=== PATIENT | female | born 1945 | race Caucasian/White ===

== ENCOUNTER → 2016-09-08 | Outpatient (CLI) | payer OTHER, MEDICARE ==
[~2016-09-08] MED LIST: ASPEC325 PO; CALC-452 PO; CMD3 PO; DLC5 PO; DLCS PR; DLD2 PO; DRGTP100 TD; DRGTP12 TD; DRGTP25 TD; ENAL10TA88 PO; ENOX100I SC; FRRG PO; FRS/40 PO; HYDR-5688 PO; LCTL45 PO; MOMLX PO; MONT1TAB3 PO; MRLP17 PO; NORT10CA4 PO; NRN300 PO; SENN8.6T7 PO; SUNI25CA PO; SYN50 PO; WARF5TAB7 PO
--- NOTE | 2016-09-08 16:20 | DIAGNOSTIC IMAGING REPORT ---
LEFT LOWER EXTREMITY VENOUS DOPPLER HISTORY: LEFT LEG PAIN AND SWELLING, R/O DVT COMPARISON STUDY: None. FINDINGS: Thrombus identified within the left greater saphenous vein and profunda femoris vein. There is also thrombus within superficial vessels of the left medial calf. There is subjacent edema within the left calf. The left common femoral, superficial femoral, popliteal, peroneal, anterior tibial, and posterior tibial veins are patent. IMPRESSION: 1. Deep vein thrombosis involving the left profunda femoris vein. 2. Multiple thrombosed superficial veins within the left calf as well as the left greater saphenous vein. Electronically signed by: Rajan Sewell M.D. 09/08/2016 4:18 PM Dictated Date/Time: 09/08/2016 4:17 PM
== END | disposition home or self-care (01) ==
LOC: C.ULTR 15:26
PROVIDERS: ATTEND Radiology Radiation Oncology
DX: M79.89 Other specified soft tissue disorders (principal); M79.604 Pain in right leg; I82.412 Acute embolism and thrombosis of left femoral vein; I82.812 Embolism and thrombosis of superficial veins of left lower extremity

== ENCOUNTER 2016-09-11 09:10 | Inpatient (IN) | payer OTHER, MEDICARE ==
[~2016-09-11] VITALS: Ht 162.6 cm; Wt 91.4 kg
[~2016-09-11 09:10] MED LIST changes: -ASPEC325 PO; -CMD3 PO; -DLC5 PO; -DLCS PR; -DLD2 PO; -DRGTP100 TD; -DRGTP12 TD; -DRGTP25 TD; -ENOX100I SC; -FRRG PO; -LCTL45 PO; -MOMLX PO; -MRLP17 PO; -NORT10CA4 PO; -NRN300 PO; -SENN8.6T7 PO; -SUNI25CA PO; -SYN50 PO; -WARF5TAB7 PO
[2016-09-11] MEDS ORDERED: HYDROmorphone INJ 0.5 MG/0.5 ML SYR IV STA ×2 (09:50→10:19)
[2016-09-11] MEDS ORDERED: ONDANSETRON INJ 2 MG/ML 2 ML VIAL IV STA (09:50)
[2016-09-11 10:01] LABS: HEMATOCRIT 25.3 % (37-47); MEAN CELL VOLUME 80.6 fL (80-100); MEAN CORPUSCULAR HEMOGLOBIN 24.8 pg (25-34); MEAN CORPUSCULAR HGB CONC 30.8 g/dl (32-36); MEAN PLATELET VOLUME 8.2 fL (7.4-10.4); PLATELET COUNT 450 K/uL (130-400); RED BLOOD COUNT 3.14 M/uL (4.2-5.4); WHITE BLOOD COUNT 14.07 K/uL (4.8-10.8)
[2016-09-11] MEDS ORDERED: DRGTP12 TD (10:14)
[2016-09-11] MEDS ORDERED: SUNI25CA PO (10:14)
[2016-09-11] MEDS ORDERED: WARF5TAB7 PO (10:14)
[2016-09-11] MEDS ORDERED: ENOX100I SC (10:14)
[2016-09-11 10:15] LABS: BUN/CREATININE RATIO 16.8 (10-20); CALCIUM 9.3 mg/dl (8.5-10.1); CREATININE 0.88 mg/dl (0.60-1.20); POTASSIUM 4.2 mmol/L (3.5-5.1)
[2016-09-11 10:26] LABS: BASO % 0.1 %; BASO ABS # 0.02 K/uL (0-0.2); COMPLETE YES; EOS % 0.6 %; IG% 1.6 %; LYMPH % 5.5 %; LYMPH ABS # 0.78 K/uL (1.2-3.4); MONO % 7.2 %
[2016-09-11] MEDS ORDERED: OPTIRAY 320 IV PRN (10:30)
[2016-09-11 10:36] LABS: INR 1.1 (0.9-1.1); PARTIAL THROMBOPLASTIN RATIO 1.5; PROTHROMBIN TIME (PATIENT) 11.9 SECONDS (9.0-12.0)
--- NOTE | 2016-09-11 11:08 | DIAGNOSTIC IMAGING REPORT ---
CT LUMBAR SPINE WITH CT DOSE: CLINICAL HISTORY: Back pain with left leg radiculopathy. Patient on Lovenox. Possible hemorrhage. TECHNIQUE: The patient was scanned in a dynamic helical fashion during intravenous administration of 66 cc of Optiray 320. COMPARISON STUDY: PET/CT scan dated 02/18/2011 FINDINGS: The visualized portions of the lung bases reveal interstitial thickening. The left kidney appears absent. There is a partially visualized destructive mass centered on the left iliac wing. This may further described on a CT scan of the pelvis. No acute fractures are visualized. There is a circumferential disc bulge and moderate spinal stenosis at the L2-3 level. There is a circumferential disc bulge and moderate spinal stenosis at the L3-4 level. There is a circumferential disc bulge and mild to moderate spinal stenosis at the L4-5 level. IMPRESSION: 1. No acute fractures or subluxations identified 2. Multilevel spondylitic changes with moderate spinal stenosis at the L2-3 and L3-4 levels. There is mild to moderate spinal stenosis at the L4-5 level. 3. Partially visualized large destructive mass centered on the left iliac bone. This will be further described in a CT scan of the pelvis which was performed the same day Electronically signed by: Jitendra Diaz M.D. 09/11/2016 11:06 AM Dictated Date/Time: 09/11/2016 11:00 AM
[2016-09-11 11:09] LABS: ANTI-Xa* 1.54 IU/ML (0 - <0.10)
--- NOTE | 2016-09-11 11:13 | DIAGNOSTIC IMAGING REPORT ---
PELVIS CT CT DOSE: 1553.24 mGy.cm HISTORY: Left hip pain. TECHNIQUE: Multiaxial CT images of the pelvis were performed and reformatted in the sagittal and coronal plane following the use of intravenous contrast. COMPARISON: Radiation oncology CT 09/08/2016. FINDINGS: No significant change in the 11 x 10 cm destructive mass centered within the left iliac wing. This displaces the left iliopsoas muscle and adjacent iliac vessels. No acute pelvic hematoma. Trace gas within the bladder lumen is likely due to recent catheterization. Small fat-containing bilateral hernias. No inguinal or pelvic lymphadenopathy. There is a left total hip arthroplasty. No acute fractures identified within the pelvis. Colonic diverticulosis. Hysterectomy. IMPRESSION: No significant change in the 11 x 10 cm destructive mass centered within the left iliac wing. No acute pelvic hematoma identified. Electronically signed by: Rajan Sewell M.D. 09/11/2016 11:11 AM Dictated Date/Time: 09/11/2016 11:04 AM
[2016-09-11] MEDS: HYDROmorphone INJ 1 MG/ML SYR IV PRN ×2 (13:07→18:13)
[2016-09-11 14:00] VITALS: BP_SYST 170; BP_SYST 173; BP_DIAS 103; BP_DIAS 95; PULSE 96; TEMP 37.1; O2SAT 95; Ht 162.6 cm; Wt 91.4 kg
[2016-09-11] MEDS ORDERED: HYDROmorphone HCL 0.5MG/ML 50 ML CASSETTE IV PRN ×2 (14:00→16:15)
[2016-09-11] MEDS ORDERED: NALOXONE HCL 0.4 MG/1 ML VIAL/CARP IV PRN ×2 (14:00→16:15)
[2016-09-11] MEDS ORDERED: ENOXAPARIN 100 MG/1ML SYR SC ONE (14:09)
--- NOTE | 2016-09-11 14:54 | History and Physical ---
History & Physical Date & Time of Service: Sep 11, 2016 at 14:12 Chief Complaint: Leg/Hip Pain Primary Care Physician: Devyn Gonzalez M.D. 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 Pt follows with Dr. Gonzalez for primary care and Dr. Villagran for oncology. Patient states back pain has been presents over past 3 months and progressively worsened. The pain starts in lumbar area and radiates to left groin and hip down the left leg to her knee. She was able to ambulate with a walker or cane until today when she was no longer able to ambulate secondary to pain. No recent fall or trauma. Pt has had Fentanyl 12 mcg patch placed 2 days ago and was taking hydrocodone-acetaminophen 5-325 at home without relief. She was treated with multiple doses of Dilaudid in ER but continues with pain rated 9/10. She had a PET scan on 09/02/16 which showed large soft tissue mets with mass effect upon the left psoas muscle, eroding the left iliac bone, and invading the left gluteal musculature with additional mass effect suggested to the left femoral vein and stable mildly prominent abdominal aorta lymph nodes. Pt was seen by radiation oncologist Dr. Joey Poon with plan for palliative radiation to start Thursday 09/14. She was started on Sutent on Wednesday by Dr. Villagran. Patient has also had LLE swelling and calf pain x 3 weeks and was had LLE US positive for DVT on 09/08/16. She was started on Lovenox and Coumadin 2 days ago. Pt denies fevers, chills, weight change, URI symptoms, cough, SOB, chest pain, abdominal pain, N/V/D/C, urinary changes, weakness, numbness, groin paresthesias, incontinence, abnormal bleeding. Pt has had lumbar spinal surgery in 1992 and L RAFAL in 02/[address] Gaona. Past Medical/Surgical History Medical Problems: (1) DVT (deep venous thrombosis) Permanent Comment: DVT of LLE diagnosed 09/08/16 Status: Chronic (2) Hypertension Status: Chronic (3) Malig irma lymph-head/neck Status: Chronic (4) Osteoarthritis Status: Chronic (5) Osteoporosis Status: Chronic (6) Renal cell carcinoma Permanent Comment: Previous Radiation Therapy 1. Bilateral neck - 5940 cGy - 08/22/2003 2. Right Humerus - 4950 cGy - 10/26/2006 3. Left Hip - 4500 cGy - 02/23/2008 -Plan for sutent by Dr. Villagran Status: Chronic (7) Secondary malignant neoplasm of bone Status: Chronic Surgical Problems: (1) H/O oophorectomy Status: Chronic (2) History of hysterectomy Status: Chronic (3) History of lumbar surgery Status: Chronic (4) History of total left hip arthroplasty Status: Chronic (5) S/P appendectomy Status: Chronic (6) S/P cholecystectomy Status: Chronic (7) S/p left wrist surgery Status: Chronic (8) S/p nephrectomy Permanent Comment: left Status: Chronic (9) S/P tonsillectomy and adenoidectomy Status: Chronic Family History FH: CAD (coronary artery disease) FATHER FH: brain aneurysm MOTHER FH: cancer BROTHER (stomach CA) SISTER (lung CA) Stroke FATHER Social History Smoking Status: Former Smoker (smoked socially in ) Alcohol Use: occasionally (no recent etoh use) Drug Use: none Housing status: lives alone Multi-Drug Resistant Organisms History of MDRO: No Allergies Coded Allergies: Alendronate (Verified Allergy, Unknown, GI upset, 09/11/16) Home Medications Scheduled Calcium Carbonate-Cholecalcife (Calcium 600 + D 600-200 mg-Unit), 2 TABS PO QAM Enalapril (Vasotec), 10 MG PO QAM Enoxaparin (Lovenox), 100 MG SC Q12 Fentanyl (Fentanyl), 12 MCG TD Q3D Furosemide (Lasix), 40 MG PO DAILY Montelukast Sodium (Singulair), 10 MG PO HS Sunitinib Malate (Sutent), 25 MG PO DAILY Warfarin Sod (Jantoven), 5 MG PO QPM Scheduled PRN Hydrocodone/Acetaminophen 5MG/325MG (Centenary 5MG/325MG), 1-2 TABLET PO Q4 PRN for Pain Review of Systems Constitutional: No chills, No fever, No weight loss Eyes: No worsening of vision ENT: No nasal symptoms, No sore throat Respiratory: No cough, No shortness of breath Cardiovascular: + edema (LLE), No chest pain Abdomen: No GI bleeding, No diarrhea, No nausea, No pain, No vomiting Musculoskeletal: + calf pain (left), + problem reported (see HPI) Genitourinary - Female: No dysuria, No urinary frequency, No urinary incontinence, No urinary urgency Neurologic: No numbness/tingling, No weakness Hematologic / Lymphatic: No problem reported (denies abnormal bleeding) Integumentary: + problem reported (erythema left buttock. denies open area. ) Physical Exam Vital Signs Date Time Temp Pulse Resp B/P Pulse Ox O2 Delivery O2 Flow Rate FiO2 09/11/16 13:07 91 18 168/102 100 Nasal Cannula 2.0 09/11/16 12:16 97 09/11/16 11:16 93 18 178/105 93 Nasal Cannula 2.0 09/11/16 10:30 92 18 178/102 99 Nasal Cannula 2.0 09/11/16 10:01 97 Nasal Cannula 2.0 09/11/16 09:55 91 18 182/95 90 Room Air 09/11/16 09:18 36.4 88 17 180/94 96 Room Air 09/11/16 09:17 88 General Appearance: WD/WN, no apparent distress, + pertinent finding (alert cooperative 71 year old female, appears uncomfortable especially with movement) Head: normocephalic, atraumatic Eyes: normal inspection, PERRL, EOMI ENT: hearing grossly normal, pharynx normal Neck: supple, trachea midline Respiratory/Chest: lungs clear, normal breath sounds, no respiratory distress, no accessory muscle use Cardiovascular: regular rate, rhythm, no murmur Abdomen/GI: normal bowel sounds, soft, + pertinent finding (tender in LLQ) Back: + pertinent finding (tender to palpation in left lumbar paraspinal area, left iliac crest, and left groin) Extremities/Musculoskelatal: + calf tenderness (left calf tender with palpable cords), + pedal edema (LLE pretibial edema), + pertinent finding (pain with left hip ROM) Neurologic/Psych: alert, normal mood/affect, oriented x 3, + pertinent finding (ankle flexion/ extension intact bilaterally. left hip ROM limited by pain. senation to light touch intact bilateral feet. ) Skin: warm/dry, + pertinent finding (small area of mild erythema with 1 cm scab on left buttock. no open area or drainage. ) Diagnostics Laboratory Results Results Past 24 Hours Test 09/11/16 09:15 Range/Units White Blood Count 14.07 4.8-10.8 K/uL Red Blood Count 3.14 4.2-5.4 M/uL Hemoglobin 7.8 12.0-16.0 g/dL Hematocrit 25.3 37-47 % Mean Corpuscular Volume 80.6 80-100 fL Mean Corpuscular Hemoglobin 24.8 25-34 pg Mean Corpuscular Hemoglobin Concent 30.8 32-36 g/dl Platelet Count 450 130-400 K/uL Mean Platelet Volume 8.2 7.4-10.4 fL Neutrophils (%) (Auto) 85.0 % Lymphocytes (%) (Auto) 5.5 % Monocytes (%) (Auto) 7.2 % Eosinophils (%) (Auto) 0.6 % Basophils (%) (Auto) 0.1 % Neutrophils # (Auto) 11.94 1.4-6.5 K/uL Lymphocytes # (Auto) 0.78 1.2-3.4 K/uL Monocytes # (Auto) 1.01 0.11-0.59 K/uL Eosinophils # (Auto) 0.09 0-0.5 K/uL Basophils # (Auto) 0.02 0-0.2 K/uL RDW Standard Deviation 55.0 36.4-46.3 fL RDW Coefficient of Variation 18.6 11.5-14.5 % Immature Granulocyte % (Auto) 1.6 % Immature Granulocyte # (Auto) 0.23 0.00-0.02 K/uL Red Blood Cell Morphology Unremarkable Prothrombin Time 11.9 9.0-12.0 SECONDS Prothromb Time International Ratio 1.1 0.9-1.1 Activated Partial Thromboplast Time 39.9 21.0-31.0 SECONDS Partial Thromboplastin Ratio 1.5 Heparin Anti-Xa Act, Low Molec Wt 1.54 0 - <0.10 IU/ML Sodium Level 134 136-145 mmol/L Potassium Level 4.2 3.5-5.1 mmol/L Chloride Level 102 98-107 mmol/L Carbon Dioxide Level 25 21-32 mmol/L Anion Gap 7.0 3-11 mmol/L Blood Urea Nitrogen 15 7-18 mg/dl Creatinine 0.88 0.60-1.20 mg/dl Est Creatinine Clear Calc Drug Dose 65.5 ml/min Estimated GFR () 76.1 Estimated GFR (Non- 65.6 BUN/Creatinine Ratio 16.8 10-20 Random Glucose 144 70-99 mg/dl Calcium Level 9.3 8.5-10.1 mg/dl Diagnostic Radiology PELVIS CT CT DOSE: 1553.24 mGy.cm HISTORY: Left hip pain. TECHNIQUE: Multiaxial CT images of the pelvis were performed and reformatted in the sagittal and coronal plane following the use of intravenous contrast. COMPARISON: Radiation oncology CT 09/08/2016. FINDINGS: No significant change in the 11 x 10 cm destructive mass centered within the left iliac wing. This displaces the left iliopsoas muscle and adjacent iliac vessels. No acute pelvic hematoma. Trace gas within the bladder lumen is likely due to recent catheterization. Small fat-containing bilateral hernias. No inguinal or pelvic lymphadenopathy. There is a left total hip arthroplasty. No acute fractures identified within the pelvis. Colonic diverticulosis. Hysterectomy. IMPRESSION: No significant change in the 11 x 10 cm destructive mass centered within the left iliac wing. No acute pelvic hematoma identified. CT LUMBAR SPINE WITH CT DOSE: CLINICAL HISTORY: Back pain with left leg radiculopathy. Patient on Lovenox. Possible hemorrhage. TECHNIQUE: The patient was scanned in a dynamic helical fashion during intravenous administration of 66 cc of Optiray 320. COMPARISON STUDY: PET/CT scan dated 02/18/2011 FINDINGS: The visualized portions of the lung bases reveal interstitial thickening. The left kidney appears absent. There is a partially visualized destructive mass centered on the left iliac wing. This may further described on a CT scan of the pelvis. No acute fractures are visualized. There is a circumferential disc bulge and moderate spinal stenosis at the L2-3 level. There is a circumferential disc bulge and moderate spinal stenosis at the L3-4 level. There is a circumferential disc bulge and mild to moderate spinal stenosis at the L4-5 level. IMPRESSION: 1. No acute fractures or subluxations identified 2. Multilevel spondylitic changes with moderate spinal stenosis at the L2-3 and L3-4 levels. There is mild to moderate spinal stenosis at the L4-5 level. 3. Partially visualized large destructive mass centered on the left iliac bone. 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 Villagran Radiation oncology consulted LLE DVT Diagnosed by ultrasound 09/08/16 Started on Lovenox and Coumadin 09/09/16 INR is 1.1 Continue Lovenox and Coumadin together for at least 5 days and until INR >2 for 2 days HYPERTENSION BP elevated in ER May be increased secondary to pain Continue enalapril and furosemide ANEMIA Hg is 7.8; was 8.3 on 09/01/16 Denies bleeding No hematoma on CT pelvis Monitor CBC LEUKOCYTOSIS Afebrile; low suspicion for infection Monitor CBC STAGE 1 PRESSURE ULCER LEFT BUTTOCK Present on arrival Wound care nurse consulted DVT PROPHYLAXIS On Lovenox and Coumadin CODE STATUS Full code per my discussion with the patient PA DRUG MONITORING Database queried with no issues identified DISPOSITION Admitted to med/surg Lives alone Follows with Dr. Gonzalez for primary care Patient seen in collaboration with Dr. Nava. Please see his addendum. VTE Prophylaxis VTE Risk Assessment Done? Y/N: Yes Risk Level: High Note ATTENDING ADDENDUM Record reviewed. Patient interviewed and examined. Care coordinated with Rosmery Rodriguez PA-C. Please refer to her documentation for patient's history. Briefly, 71 YO female with history renal cell Ca. Now with large left pelvic mass with intractable pain; to start XRT on Wednesday. DVT LLE diagnosed a few days ago. No chest pain or SOB. EXAM: General- appears to be uncomfortable. VS- as noted HEENT- anicteric Neck- no JVD Lungs- clear Heart- RRR Abdomen- + BS, soft, left pelvic tenderness Extremities- 1+ edema RLE, 2+ edema LLE Neuro- alert DATA: Hgb 7.8. Other lab studies as noted. CT pelvis- 10 x 11 cm left pelvic mass invading left iliac wing. 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 Increase fentanyl patch to 25 mcg/hr. Add gabapentin. Radiation therapy as scheduled. DVT LLE Diagnosed a few days ago. Continue enoxaparin until INR > 2 for at least 2 days. ANEMIA Transfusion to maintain Hgb > 10 recommended by Oncology in light of anticipated radiation therapy. 2 units irradiated blood to be typed and crossed in a.m. Please refer to CALVIN Rodriguez's documentation for discussion of other issues. Marvin Nava MD .
--- NOTE | 2016-09-11 15:08 | Radiation Oncology Progress Nt ---
Radiation Oncology Progress Nt Date of Service Date of Service: Sep 11, 2016. Subjective Pt evaluation today including: conversation w/ regional sales consultant PLEASE REFER TO OUTPATIENT CONSULTATION NOTE FOR FULL HPI. Review of Systems Constitutional: + see HPI Objective Vital Signs Date Time Temp Pulse Resp B/P Pulse Ox O2 Delivery O2 Flow Rate FiO2 09/11/16 14:00 37.1 96 18 173/103 95 Nasal Cannula 170/95 09/11/16 13:15 91 18 168/102 100 09/11/16 13:07 91 18 168/102 100 Nasal Cannula 2.0 09/11/16 12:16 97 09/11/16 11:16 93 18 178/105 93 Nasal Cannula 2.0 09/11/16 10:30 92 18 178/102 99 Nasal Cannula 2.0 09/11/16 10:01 97 Nasal Cannula 2.0 09/11/16 09:55 91 18 182/95 90 Room Air 09/11/16 09:18 36.4 88 17 180/94 96 Room Air 09/11/16 09:17 88 Laboratory Results Last 24 Hours Test 09/11/16 09:15 White Blood Count 14.07 K/uL Red Blood Count 3.14 M/uL Hemoglobin 7.8 g/dL Hematocrit 25.3 % Mean Corpuscular Volume 80.6 fL Mean Corpuscular Hemoglobin 24.8 pg Mean Corpuscular Hemoglobin Concent 30.8 g/dl Platelet Count 450 K/uL Mean Platelet Volume 8.2 fL Neutrophils (%) (Auto) 85.0 % Lymphocytes (%) (Auto) 5.5 % Monocytes (%) (Auto) 7.2 % Eosinophils (%) (Auto) 0.6 % Basophils (%) (Auto) 0.1 % Neutrophils # (Auto) 11.94 K/uL Lymphocytes # (Auto) 0.78 K/uL Monocytes # (Auto) 1.01 K/uL Eosinophils # (Auto) 0.09 K/uL Basophils # (Auto) 0.02 K/uL RDW Standard Deviation 55.0 fL RDW Coefficient of Variation 18.6 % Immature Granulocyte % (Auto) 1.6 % Immature Granulocyte # (Auto) 0.23 K/uL Red Blood Cell Morphology Unremarkable Prothrombin Time 11.9 SECONDS Prothromb Time International Ratio 1.1 Activated Partial Thromboplast Time 39.9 SECONDS Partial Thromboplastin Ratio 1.5 Heparin Anti-Xa Act, Low Molec Wt 1.54 IU/ML Sodium Level 134 mmol/L Potassium Level 4.2 mmol/L Chloride Level 102 mmol/L Carbon Dioxide Level 25 mmol/L Anion Gap 7.0 mmol/L Blood Urea Nitrogen 15 mg/dl Creatinine 0.88 mg/dl Est Creatinine Clear Calc Drug Dose 65.5 ml/min Estimated GFR () 76.1 Estimated GFR (Non- 65.6 BUN/Creatinine Ratio 16.8 Random Glucose 144 mg/dl Calcium Level 9.3 mg/dl Assessment and Plan Ms. Hutchinson is a 71-year-old female who presents with metastatic renal cell carcinoma involving the left iliac wing. The patient was previously seen in consultation for palliative radiation therapy to the left iliac wing at the request of Dr. Villagran. The patient was brought back for CT simulation for treatment planning and a treatment plan has been finalized. The patient is now being admitted to the hospital due to insufficient pain control and we have been asked to evaluate the patient for input regarding radiation therapy. I did speak on the phone with Dr. Marvin Nava and explained to him that our plan is to initiate palliative radiation therapy starting next Wednesday. In the interim, the patient will be started on increased pain medications to control her pain. Please call us if there is any other further questions or concerns. Again, please refer to our initial consultation note from 09/08/2016 for more information.
[2016-09-11 15:13] VITALS: BP 164/98; PULSE 94; TEMP 37.3; O2SAT 95
[2016-09-11 16:00] VITALS: O2SAT 95
[2016-09-11] MEDS ORDERED: SODIUM CHLORIDE 0.9% 1000ML 1,000 ML IV SCH (16:13)
[2016-09-11] MEDS: SODIUM CHLORIDE 0.9% 1000ML 1,000 ML IV SCH (16:45)
[2016-09-11] MEDS: WARFARIN SOD 5 MG TAB PO SCH (16:56)
--- NOTE | 2016-09-11 17:14 | EMERGENCY ROOM VISIT NOTE ---
History Report prepared by Courtney: Brandyn Ferrera Under the Supervision of: Dr. Fernando Ruiz M.D. First contact with patient: 09:36 Chief Complaint: LEG PAIN,LEG INJURY Stated Complaint: LEG/HIP PAIN History of Present Illness The patient is a 71 year old female who presents to the Emergency Room with complaints of worsening pain in her back and left leg starting last night. The patient notes that this pain has been present since May, 3 months ago; however, last night the pain became so severe that the patient was struggling to move and walk. The pain seemed to be worsening over the past 2 days. The patient notes that the pain starts in her left back and radiates down the front and side of her left leg down to her knee. The patient recently presented to the hospital 2 days ago to get set up for radiation and chemotherapy for treatment of her kidney cancer that has metastasized to her gut. At that visit, the patient's legs were swollen and she was set up for a sonogram. The patient had blood clots in her left leg and was put on Lovenox and Coumadin. The patient was also given a Fentanyl patch of 12 mcg per hour. She is still wearing the patch now, but notes it is not relieving her current discomfort. She also took Hydrocodone without any relief of her symptoms. The patient presents to the ED today because of the discomfort in her left leg and increased swelling in both of her legs. She denies recent falls or injuries, fever, chest pain, breathing difficulties, severe headaches, numbness, loss of control of her bladder or bowels, or black/ bloody stools. Source of History: patient Onset: several months, worse over the past 2 days Position: pelvis, back (lower and radiating down left leg) Symptom Intensity: severe Timing: worsening Associated Symptoms: No SOB, No chest pain, No fevers, No headache Note: Associated symptoms: unable to walk/ move left leg, swollen lower legs, Denies: recent falls/ injuries, loss of control of bladder/bowels. black/bloody stools Review of Systems See HPI for pertinent positives & negatives. A total of 10 systems reviewed and were otherwise negative. Past Medical & Surgical Medical Problems: (1) DVT (deep venous thrombosis) (2) Hypertension (3) Malig irma lymph-head/neck (4) Osteoarthritis (5) Osteoporosis (6) Renal cell carcinoma (7) Secondary malignant neoplasm of bone Surgical Problems: (1) H/O oophorectomy (2) History of hysterectomy (3) History of lumbar surgery (4) History of total left hip arthroplasty (5) S/P appendectomy (6) S/P cholecystectomy (7) S/p left wrist surgery (8) S/p nephrectomy (9) S/P tonsillectomy and adenoidectomy Family History No pertinent family history Social History Smoking Status: Former Smoker Marital Status: Occupation Status: retired Current/Historical Medications Scheduled Calcium Carbonate-Cholecalcife (Calcium 600 + D 600-200 mg-Unit), 2 TABS PO QAM Enalapril (Vasotec), 10 MG PO QAM Enoxaparin (Lovenox), 100 MG SC Q12 Fentanyl (Fentanyl), 12 MCG TD Q3D Furosemide (Lasix), 40 MG PO DAILY Montelukast Sodium (Singulair), 10 MG PO HS Sunitinib Malate (Sutent), 25 MG PO DAILY Warfarin Sod (Jantoven), 5 MG PO QPM Scheduled PRN Hydrocodone/Acetaminophen 5MG/325MG ([place] 5MG/325MG), 1-2 TABLET PO Q4 PRN for Pain Allergies Coded Allergies: Alendronate (Verified Allergy, Unknown, GI upset, 09/11/16) Physical Exam Vital Signs Date Time Temp Pulse Resp B/P Pulse Ox O2 Delivery O2 Flow Rate FiO2 09/11/16 11:16 93 18 178/105 93 Nasal Cannula 2.0 09/11/16 10:30 92 18 178/102 99 Nasal Cannula 2.0 09/11/16 10:01 97 Nasal Cannula 2.0 09/11/16 09:55 91 18 182/95 90 Room Air 09/11/16 09:18 36.4 88 17 180/94 96 Room Air 09/11/16 09:17 88 Physical Exam Constitutional: Vital signs reviewed. Eyes: Pupils are equal round reactive to light. Conjunctiva are noninjected. ENT: Pharynx is clear without erythema or exudate. Mucous membranes are moist. Neck supple without meningeal signs. Respiratory: Clear to auscultation bilaterally. Breath sounds are equal bilaterally. Cardiovascular: Regular rate and rhythm. No rubs or gallops. GI: Soft, nondistended. Left pelvic tenderness, no guarding. Bowel sounds are present. Musculoskeletal: Significant swelling to left lower extremity, normal distal capillary refill, palpable cords in calf. Integumentary: No cyanosis. Neurological: The patient is awake and alert. No focal deficits. Sensation intact to lower extremities, motor strength intact distally, unable to assess proximal strength secondary to pain Psychiatric: Normal affect. Medical Decision & Procedures ER Provider Diagnostic Interpretation: Radiology results as stated below per my review and the radiologist's interpretation: PELVIS CT CT DOSE: 1553.24 mGy.cm HISTORY: Left hip pain. TECHNIQUE: Multiaxial CT images of the pelvis were performed and reformatted in the sagittal and coronal plane following the use of intravenous contrast. COMPARISON: Radiation oncology CT 09/08/2016. FINDINGS: No significant change in the 11 x 10 cm destructive mass centered within the left iliac wing. This displaces the left iliopsoas muscle and adjacent iliac vessels. No acute pelvic hematoma. Trace gas within the bladder lumen is likely due to recent catheterization. Small fat-containing bilateral hernias. No inguinal or pelvic lymphadenopathy. There is a left total hip arthroplasty. No acute fractures identified within the pelvis. Colonic diverticulosis. Hysterectomy. IMPRESSION: No significant change in the 11 x 10 cm destructive mass centered within the left iliac wing. No acute pelvic hematoma identified. Electronically signed by: Rajan Sewell M.D. 09/11/2016 11:11 AM Dictated Date/Time: 09/11/2016 11:[address] LUMBAR SPINE WITH CT DOSE: CLINICAL HISTORY: Back pain with left leg radiculopathy. Patient on Lovenox. Possible hemorrhage. TECHNIQUE: The patient was scanned in a dynamic helical fashion during intravenous administration of 66 cc of Optiray 320. COMPARISON STUDY: PET/CT scan dated 02/18/2011 FINDINGS: The visualized portions of the lung bases reveal interstitial thickening. The left kidney appears absent. There is a partially visualized destructive mass centered on the left iliac wing. This may further described on a CT scan of the pelvis. No acute fractures are visualized. There is a circumferential disc bulge and moderate spinal stenosis at the L2-3 level. There is a circumferential disc bulge and moderate spinal stenosis at the L3-4 level. There is a circumferential disc bulge and mild to moderate spinal stenosis at the L4-5 level. IMPRESSION: 1. No acute fractures or subluxations identified 2. Multilevel spondylitic changes with moderate spinal stenosis at the L2-3 and L3-4 levels. There is mild to moderate spinal stenosis at the L4-5 level. 3. Partially visualized large destructive mass centered on the left iliac bone. This will be further described in a CT scan of the pelvis which was performed the same day Electronically signed by: Jitendra Diaz M.D. 09/11/2016 11:06 AM Dictated Date/Time: 09/11/2016 11:00 AM Laboratory Results 09/11/16 09:15 Red Blood Count 3.14, Mean Corpuscular Volume 80.6, Mean Corpuscular Hemoglobin 24.8, Mean Corpuscular Hemoglobin Concent 30.8, Mean Platelet Volume 8.2, Neutrophils (%) (Auto) 85.0, Lymphocytes (%) (Auto) 5.5, Monocytes (%) (Auto) 7.2, Eosinophils (%) (Auto) 0.6, Basophils (%) (Auto) 0.1, Neutrophils # (Auto) 11.94, Lymphocytes # (Auto) 0.78, Monocytes # (Auto) 1.01, Eosinophils # (Auto) 0.09, Basophils # (Auto) 0.02 09/11/16 09:15 Test 09/11/16 09:15 White Blood Count 14.07 K/uL (4.8-10.8) Red Blood Count 3.14 M/uL (4.2-5.4) Hemoglobin 7.8 g/dL (12.0-16.0) Hematocrit 25.3 % (37-47) Mean Corpuscular Volume 80.6 fL (80-100) Mean Corpuscular Hemoglobin 24.8 pg (25-34) Mean Corpuscular Hemoglobin Concent 30.8 g/dl (32-36) Platelet Count 450 K/uL (130-400) Mean Platelet Volume 8.2 fL (7.4-10.4) Neutrophils (%) (Auto) 85.0 % Lymphocytes (%) (Auto) 5.5 % Monocytes (%) (Auto) 7.2 % Eosinophils (%) (Auto) 0.6 % Basophils (%) (Auto) 0.1 % Neutrophils # (Auto) 11.94 K/uL (1.4-6.5) Lymphocytes # (Auto) 0.78 K/uL (1.2-3.4) Monocytes # (Auto) 1.01 K/uL (0.11-0.59) Eosinophils # (Auto) 0.09 K/uL (0-0.5) Basophils # (Auto) 0.02 K/uL (0-0.2) RDW Standard Deviation 55.0 fL (36.4-46.3) RDW Coefficient of Variation 18.6 % (11.5-14.5) Immature Granulocyte % (Auto) 1.6 % Immature Granulocyte # (Auto) 0.23 K/uL (0.00-0.02) Red Blood Cell Morphology Unremarkable Prothrombin Time 11.9 SECONDS (9.0-12.0) Prothromb Time International Ratio 1.1 (0.9-1.1) Activated Partial Thromboplast Time 39.9 SECONDS (21.0-31.0) Partial Thromboplastin Ratio 1.5 Heparin Anti-Xa Act, Low Molec Wt 1.54 IU/ML (0 - <0.10) Anion Gap 7.0 mmol/L (3-11) Est Creatinine Clear Calc Drug Dose 65.5 ml/min Estimated GFR () 76.1 Estimated GFR (Non- 65.6 BUN/Creatinine Ratio 16.8 (10-20) Calcium Level 9.3 mg/dl (8.5-10.1) Laboratory results as reviewed by me. Medications Administered Medications (Trade) Dose Ordered Sig/Benjamín Route Start Time Stop Time Status Last Admin Dose Admin Hydromorphone HCl (Dilaudid Inj) 0.5 mg NOW STAT IV 09/11/16 09:50 09/11/16 09:52 DC 09/11/16 09:57 0.5 MG Ondansetron HCl (Zofran Inj) 4 mg NOW STAT IV 09/11/16 09:50 09/11/16 09:52 DC 09/11/16 09:56 4 MG Hydromorphone HCl (Dilaudid Inj) 0.5 mg NOW STAT IV 09/11/16 10:19 09/11/16 10:22 DC 09/11/16 10:29 0.5 MG ED Course 0940: The patient was evaluated in room A2. A complete history and physical exam was performed. 0950: Ordered Zofran Inj 4 mg IV, Dilaudid Inj 0.5 mg IV. 1017: At this time, I discussed the patient's case with Dr. Tyshawn Bowers and he agreed that she would probably have to be admitted for radiation and pain control. He did not have an objection to CT scanning to look for hematoma. Her last hemoglobin was 8.3. 1019: Ordered Dilaudid Inj 0.5 mg IV. 1142: At this time, I discussed the patient's case with Dr. Brandy Bowers and he agreed to accept the patient for further evaluation. Medical Decision This is a 71-year-old female who presents with pain in her left groin rating down her leg. Differential diagnosis includes lumbar radiculopathy, DVT, pelvic mass, pelvic hematoma, pathologic fracture. I did perform a limited focused review of portions of the patient's old chart on the electronic medical record. The patient had a Doppler of left leg on September 08 which showed DVT in left profunda femoris vein and multiple superficial thrombosed veins. She had a PET scan on the that showed large soft tissue metastatic mass with mass effect on left psoas muscle, left iliac bone, and invading left gluteal musculature, with additional mass effect in left femoral vein. I did evaluate the patient as noted above. IV access was established. I did treat the patient with IV Dilaudid and Zofran. I did order and review the patient's blood work as noted in the electronic medical record. She is anemic. I did discuss case with Dr. Villagran who recommended hospitalization for pain control and radiation therapy. I did order a CT of the lumbar spine and pelvis. I did review the images myself as well as the radiology report as described above. She does have a pelvic mass without signs of a hematoma. I did discuss the test results with the patient and her family. She was given additional Dilaudid for pain control. I did discuss the case with the hospitalist and nurse case manager. Consults Time Called: [phone] Consulting Physician: Dr. Tyshawn Bowers Returned Call: [phone] At this time, I discussed the patient's case with Dr. Villagran and he agreed that she would probably have to be admitted for radiation and pain control. He did not have an objection to CT scanning to look for hematoma. Her last hemoglobin was 8.3. Additional Consults: Time Called: [phone] Consulted Physician: Dr. Brandy Bowers Returned Call: [phone] Additional Comments: At this time, I discussed the patient's case with Dr. Nava and he agreed to accept the patient for further evaluation. Impression Primary Impression: Intractable pain Additional Impressions: Pelvic mass Left leg DVT Scribe Attestation The scribe's documentation has been prepared under my direct and personally reviewed by me in its entirety. I confirm that the note above accurately reflects all work, treatment, procedures, and medical decision making performed by me. Departure Information Dispostion Being Evaluated By Hospitalist Devyn Mena M.D. (PCP) Problem Qualifiers Additional Impressions: Left leg DVT Affected thrombotic vein of extremity: unspecified vein of extremity Chronicity: acute Qualified Codes: I82.402 - Acute embolism and thrombosis of unspecified deep veins of left lower extremity
[2016-09-11] MEDS: [UNRECOGNIZED DRUG - OTHER] PO SCH (17:17)
[2016-09-11] MEDS ORDERED: DOCUSATE SODIUM 100 MG CAP PO SCH (21:00)
[2016-09-11] MEDS: FENTANYL 25 MCG/HR TDSY TD SCH (21:27)
[2016-09-11] MEDS: FENTANYL PATCH REMOVE & WASTE SCH (21:32)
[2016-09-11] MEDS: MONTELUKAST SOD 10 MG TAB PO SCH (22:03)
[2016-09-11] MEDS: DOCUSATE SODIUM/SENNA 50/8.6MG TAB PO SCH (22:03)
[2016-09-11] MEDS: GABAPENTIN 100 MG CAP PO SCH (22:03)
[2016-09-12] VITALS (14 sets, daily range): BP systolic 89–154; BP diastolic 61–88; PULSE 77–94; TEMP 36.4–36.8; O2SAT 90–99
[2016-09-12] MEDS: CHECK FENTANYL PATCH PLACEMENT SCH ×3 (00:34→16:10)
[2016-09-12] MEDS: ENOXAPARIN 100 MG/1ML SYR SC SCH ×2 (00:35→11:58)
[2016-09-12] MEDS: HYDROmorphone INJ 1 MG/ML SYR IV PRN ×3 (06:38→14:02)
[2016-09-12 06:52] LABS: HEMATOCRIT 26.2 % (37-47); MEAN CELL VOLUME 80.1 fL (80-100); MEAN CORPUSCULAR HEMOGLOBIN 25.1 pg (25-34); MEAN CORPUSCULAR HGB CONC 31.3 g/dl (32-36); MEAN PLATELET VOLUME 8.1 fL (7.4-10.4); PLATELET COUNT 482 K/uL (130-400); RED BLOOD COUNT 3.27 M/uL (4.2-5.4); WHITE BLOOD COUNT 16.76 K/uL (4.8-10.8)
[2016-09-12 07:08] LABS: INR 1.2 (0.9-1.1); PROTHROMBIN TIME (PATIENT) 13.2 SECONDS (9.0-12.0)
[2016-09-12 07:21] LABS: BASO % 0.2 %; BASO ABS # 0.03 K/uL (0-0.2); COMPLETE YES; EOS % 0.2 %; IG% 1.2 %; LYMPH % 3.8 %; LYMPH ABS # 0.64 K/uL (1.2-3.4); MONO % 8.2 %; NEUT % 86.4 %
[2016-09-12 07:39] LABS: BUN/CREATININE RATIO 14.3 (10-20); CALCIUM 9.2 mg/dl (8.5-10.1); CREATININE 0.83 mg/dl (0.60-1.20); POTASSIUM 4.6 mmol/L (3.5-5.1)
[2016-09-12] MEDS ORDERED: CALCIUM 600MG + VIT D 400 IU TAB PO SCH (09:00)
[2016-09-12] MEDS: GABAPENTIN 100 MG CAP PO SCH ×3 (09:28→19:53)
[2016-09-12] MEDS: FUROSEMIDE 40 MG TAB PO SCH (09:29)
[2016-09-12] MEDS: ENALAPRIL MALEATE 10 MG TAB PO SCH (09:29)
[2016-09-12] MEDS: DOCUSATE SODIUM/SENNA 50/8.6MG TAB PO SCH ×2 (11:13→19:53)
[2016-09-12] MEDS ORDERED: NURSING VERBAL MED ORDER ONE ×2 (12:00→18:00)
[2016-09-12] MEDS: DICLOFENAC SOD 1% GEL 100 GM TUBE EXT PRN (13:28)
[2016-09-12] MEDS: SODIUM CHLORIDE 0.9% 1000ML 1,000 ML IV SCH (13:29)
[2016-09-12] MEDS ORDERED: BISACODYL 5 MG TABEC PO PRN (15:45)
[2016-09-12] MEDS: WARFARIN SOD 5 MG TAB PO SCH (16:12)
--- NOTE | 2016-09-12 16:29 | Progress Note ---
Internal Med Progress Note Date of Service: Sep 12, 2016. 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 Diagnostic Radiology PELVIS CT CT DOSE: 1553.24 mGy.cm HISTORY: Left hip pain. TECHNIQUE: Multiaxial CT images of the pelvis were performed and reformatted in the sagittal and coronal plane following the use of intravenous contrast. COMPARISON: Radiation oncology CT 09/08/2016. FINDINGS: No significant change in the 11 x 10 cm destructive mass centered within the left iliac wing. This displaces the left iliopsoas muscle and adjacent iliac vessels. No acute pelvic hematoma. Trace gas within the bladder lumen is likely due to recent catheterization. Small fat-containing bilateral hernias. No inguinal or pelvic lymphadenopathy. There is a left total hip arthroplasty. No acute fractures identified within the pelvis. Colonic diverticulosis. Hysterectomy. IMPRESSION: No significant change in the 11 x 10 cm destructive mass centered within the left iliac wing. No acute pelvic hematoma identified. CT LUMBAR SPINE WITH CT DOSE: CLINICAL HISTORY: Back pain with left leg radiculopathy. Patient on Lovenox. Possible hemorrhage. TECHNIQUE: The patient was scanned in a dynamic helical fashion during intravenous administration of 66 cc of Optiray 320. COMPARISON STUDY: PET/CT scan dated 02/18/2011 FINDINGS: The visualized portions of the lung bases reveal interstitial thickening. The left kidney appears absent. There is a partially visualized destructive mass centered on the left iliac wing. This may further described on a CT scan of the pelvis. No acute fractures are visualized. There is a circumferential disc bulge and moderate spinal stenosis at the L2-3 level. There is a circumferential disc bulge and moderate spinal stenosis at the L3-4 level. There is a circumferential disc bulge and mild to moderate spinal stenosis at the L4-5 level. IMPRESSION: 1. No acute fractures or subluxations identified 2. Multilevel spondylitic changes with moderate spinal stenosis at the L2-3 and L3-4 levels. There is mild to moderate spinal stenosis at the L4-5 level. 3. Partially visualized large destructive mass centered on the left iliac bone. 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 On Fentanyl patch as at home- still has some pain but tolerable -Radiation oncology consulted; plan for palliative radiation starting Wednesday -PT and OT evaluations ANEMIA Hb 8.2 today, need it to be > 10 as plan is for radiation on wednesday per discussion with Dr Villagran -Transfuse 2 units of PRBCS today -Monitor H & H METASTATIC [facility] -Continue Sutent recently started by Dr. Villagran -Radiation oncology consulted LLE DVT Diagnosed by ultrasound 09/08/16 -Started on Lovenox and Coumadin 09/09/16 -INR is 1.2 -Continue Lovenox and Coumadin together for at least 5 days and until INR >2 for 2 days HYPERTENSION- Stable -Continue enalapril and furosemide ANEMIA Hg is 7.8; was 8.3 on 09/01/16 -Denies bleeding -No hematoma on CT pelvis -Monitor CBC LEUKOCYTOSIS -Afebrile; low suspicion for infection -Monitor CBC STAGE 1 PRESSURE ULCER LEFT BUTTOCK Present on arrival -Wound care nurse consulted DVT PROPHYLAXIS -On Lovenox and Coumadin CODE STATUS -Full code per my discussion with the patient PA DRUG MONITORING -Database queried with no issues identified DISPOSITION Lives alone PT/OT prior to discharge Follows with Dr. Gonzalez for primary care Discussed with daughter by bedside. Vital Signs: Date Time Temp Pulse Resp B/P Pulse Ox O2 Delivery O2 Flow Rate FiO2 09/12/16 15:35 36.8 87 18 106/75 97 Nasal Cannula 1.5 09/12/16 11:55 36.6 82 16 144/82 99 1.0 09/12/16 09:30 Nasal Cannula 2.0 09/12/16 08:19 36.8 82 18 154/88 96 Nasal Cannula 1.5 09/12/16 00:50 36.8 78 18 137/82 96 09/11/16 23:59 Nasal Cannula 2.0 Lab Results: Results Past 24 Hours Test 09/12/16 06:15 Range/Units White Blood Count 16.76 4.8-10.8 K/uL Red Blood Count 3.27 4.2-5.4 M/uL Hemoglobin 8.2 12.0-16.0 g/dL Hematocrit 26.2 37-47 % Mean Corpuscular Volume 80.1 80-100 fL Mean Corpuscular Hemoglobin 25.1 25-34 pg Mean Corpuscular Hemoglobin Concent 31.3 32-36 g/dl Platelet Count 482 130-400 K/uL Mean Platelet Volume 8.1 7.4-10.4 fL Neutrophils (%) (Auto) 86.4 % Lymphocytes (%) (Auto) 3.8 % Monocytes (%) (Auto) 8.2 % Eosinophils (%) (Auto) 0.2 % Basophils (%) (Auto) 0.2 % Neutrophils # (Auto) 14.48 1.4-6.5 K/uL Lymphocytes # (Auto) 0.64 1.2-3.4 K/uL Monocytes # (Auto) 1.37 0.11-0.59 K/uL Eosinophils # (Auto) 0.04 0-0.5 K/uL Basophils # (Auto) 0.03 0-0.2 K/uL RDW Standard Deviation 54.8 36.4-46.3 fL RDW Coefficient of Variation 18.5 11.5-14.5 % Immature Granulocyte % (Auto) 1.2 % Immature Granulocyte # (Auto) 0.20 0.00-0.02 K/uL Nucleated RBC Absolute Count (auto) 0.03 0-0 K/uL Nucleated Red Blood Cells % 0.2 % Red Blood Cell Morphology Unremarkable Prothrombin Time 13.2 9.0-12.0 SECONDS Prothromb Time International Ratio 1.2 0.9-1.1 Sodium Level 127 136-145 mmol/L Potassium Level 4.6 3.5-5.1 mmol/L Chloride Level 93 98-107 mmol/L Carbon Dioxide Level 26 21-32 mmol/L Anion Gap 8.0 3-11 mmol/L Blood Urea Nitrogen 12 7-18 mg/dl Creatinine 0.83 0.60-1.20 mg/dl Est Creatinine Clear Calc Drug Dose 66.5 ml/min Estimated GFR () 81.7 Estimated GFR (Non- 70.4 BUN/Creatinine Ratio 14.3 10-20 Random Glucose 121 70-99 mg/dl Calcium Level 9.2 8.5-10.1 mg/dl Magnesium Level 2.0 1.8-2.4 mg/dl
[2016-09-12] MEDS: [UNRECOGNIZED DRUG - OTHER] PO SCH (18:15)
[2016-09-12] MEDS: MONTELUKAST SOD 10 MG TAB PO SCH (21:30)
[2016-09-12] MEDS: OXYCODONE HCL 20 MG TABCR (OXYCONTIN) PO SCH (21:30)
[2016-09-12] MEDS: ONDANSETRON INJ 2 MG/ML 2 ML VIAL IV PRN (21:33)
[2016-09-13] VITALS (7 sets, daily range): BP systolic 105–160; BP diastolic 71–74; PULSE 77–97; TEMP 36.7–36.9; O2SAT 95–98
[2016-09-13] MEDS: ENOXAPARIN 100 MG/1ML SYR SC SCH ×2 (00:39→12:17)
[2016-09-13] MEDS: HYDROmorphone INJ 1 MG/ML SYR IV PRN ×6 (06:38→20:28)
[2016-09-13] MEDS: DICLOFENAC SOD 1% GEL 100 GM TUBE EXT PRN ×2 (06:38→17:53)
[2016-09-13] MEDS: DOCUSATE SODIUM/SENNA 50/8.6MG TAB PO SCH ×2 (08:06→20:22)
[2016-09-13] MEDS: ENALAPRIL MALEATE 10 MG TAB PO SCH (08:06)
[2016-09-13] MEDS: POLYETHYLENE (MIRALAX) 17 GM PACK PO SCH (08:06)
[2016-09-13] MEDS: GABAPENTIN 100 MG CAP PO SCH ×3 (08:06→20:22)
[2016-09-13] MEDS: FUROSEMIDE 40 MG TAB PO SCH (08:06)
[2016-09-13] MEDS: CHECK FENTANYL PATCH PLACEMENT SCH ×3 (08:07→15:49)
[2016-09-13] MEDS: OXYCODONE HCL 20 MG TABCR (OXYCONTIN) PO SCH ×2 (08:34→20:27)
[2016-09-13 08:53] LABS: HEMATOCRIT 29.1 % (37-47); MEAN CELL VOLUME 79.3 fL (80-100); MEAN CORPUSCULAR HEMOGLOBIN 26.7 pg (25-34); MEAN CORPUSCULAR HGB CONC 33.7 g/dl (32-36); MEAN PLATELET VOLUME 8.2 fL (7.4-10.4); PLATELET COUNT 421 K/uL (130-400); RED BLOOD COUNT 3.67 M/uL (4.2-5.4); WHITE BLOOD COUNT 17.66 K/uL (4.8-10.8)
[2016-09-13 09:26] LABS: BUN/CREATININE RATIO 15.4 (10-20); CALCIUM 8.7 mg/dl (8.5-10.1); CREATININE 1.5 mg/dl (0.60-1.20); POTASSIUM 4.4 mmol/L (3.5-5.1)
[2016-09-13] MEDS: ONDANSETRON INJ 2 MG/ML 2 ML VIAL IV PRN (09:38)
[2016-09-13] MEDS: SODIUM CHLORIDE 0.9% 1000ML 1,000 ML IV SCH (15:19)
--- NOTE | 2016-09-13 15:40 | Progress Note ---
Internal Med Progress Note Date of Service: Sep 13, 2016. Provider Documentation: SUBJECTIVE: Patient's dilaudid pump was discontinued yesterday as she was more sedated, had nausea/vomiting x 2. Doing well on current pain regimen and even participated with OT. No BM yet Denies any chest pain, cough, sob, abdominal pain,fever, chills OBJECTIVE: Vital Signs-as noted below Exam: General-AAOX2, Not in distress Neck-Supple Lungs-AEBE, clear Heart-s1, s2 Normal Abdomen-Left groin, pelvis tenderness, soft, no rigidity, guarding Extremities-Left ext- +2 edema, Right ext +1 edema Neuro-AAOX2, No focal deficits Lab data as noted below. Diagnostic Radiology PELVIS CT CT DOSE: 1553.24 mGy.cm HISTORY: Left hip pain. TECHNIQUE: Multiaxial CT images of the pelvis were performed and reformatted in the sagittal and coronal plane following the use of intravenous contrast. COMPARISON: Radiation oncology CT 09/08/2016. FINDINGS: No significant change in the 11 x 10 cm destructive mass centered within the left iliac wing. This displaces the left iliopsoas muscle and adjacent iliac vessels. No acute pelvic hematoma. Trace gas within the bladder lumen is likely due to recent catheterization. Small fat-containing bilateral hernias. No inguinal or pelvic lymphadenopathy. There is a left total hip arthroplasty. No acute fractures identified within the pelvis. Colonic diverticulosis. Hysterectomy. IMPRESSION: No significant change in the 11 x 10 cm destructive mass centered within the left iliac wing. No acute pelvic hematoma identified. CT LUMBAR SPINE WITH CT DOSE: CLINICAL HISTORY: Back pain with left leg radiculopathy. Patient on Lovenox. Possible hemorrhage. TECHNIQUE: The patient was scanned in a dynamic helical fashion during intravenous administration of 66 cc of Optiray 320. COMPARISON STUDY: PET/CT scan dated 02/18/2011 FINDINGS: The visualized portions of the lung bases reveal interstitial thickening. The left kidney appears absent. There is a partially visualized destructive mass centered on the left iliac wing. This may further described on a CT scan of the pelvis. No acute fractures are visualized. There is a circumferential disc bulge and moderate spinal stenosis at the L2-3 level. There is a circumferential disc bulge and moderate spinal stenosis at the L3-4 level. There is a circumferential disc bulge and mild to moderate spinal stenosis at the L4-5 level. IMPRESSION: 1. No acute fractures or subluxations identified 2. Multilevel spondylitic changes with moderate spinal stenosis at the L2-3 and L3-4 levels. There is mild to moderate spinal stenosis at the L4-5 level. 3. Partially visualized large destructive mass centered on the left iliac bone. 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 On Fentanyl patch, Oxycodone 20 mg q 12 hours, IV Dilaudid 1 mg prn -Radiation oncology consulted; plan for palliative radiation starting Wednesday -PT and OT evaluations - participated with PT today ANEMIA Hb 8.2 today, need it to be > 10 as plan is for radiation on wednesday per discussion with Dr Villagran -Transfuse 2 units of PRBCS on 09/12/16, today 9.8 -Monitor H & H METASTATIC RCC -Continue Sutent recently started by Dr. Villagran -Radiation oncology consulted LLE DVT Diagnosed by ultrasound 09/08/16 -Started on Lovenox and Coumadin 09/09/16 -INR is 1.2. INR monitoring -Continue Lovenox and Coumadin together for at least 5 days and until INR >2 for 2 days HYPERTENSION- Stable -Continue enalapril and furosemide LEUKOCYTOSIS- Trending up -Afebrile; low suspicion for infection -Monitor closely for signs of infection -Monitor CBC CONSTIPATION -Laxatives added STAGE 1 PRESSURE ULCER LEFT BUTTOCK Present on arrival -Wound care nurse consulted DVT PROPHYLAXIS -On Lovenox and Coumadin CODE STATUS -Full code per my discussion with the patient PA DRUG MONITORING -Database queried with no issues identified DISPOSITION Lives alone - will need mcc placement PT/OT Follows with Dr. Gonzalez for primary care Discussed with daughter by bedside. Vital Signs: Date Time Temp Pulse Resp B/P Pulse Ox O2 Delivery O2 Flow Rate FiO2 09/13/16 11:39 36.9 97 18 120/74 95 Room Air 09/13/16 08:10 Nasal Cannula 2.0 09/13/16 07:56 36.8 77 18 129/71 98 Nasal Cannula 1.0 09/13/16 03:37 36.9 77 18 118/74 96 Room Air 09/12/16 23:59 Nasal Cannula 2.0 09/12/16 23:47 36.4 77 19 104/67 99 Nasal Cannula 1.0 09/12/16 23:30 36.4 77 18 104/67 99 2.0 09/12/16 21:39 94 18 102/67 97 Nasal Cannula 2.0 09/12/16 21:30 85 94/62 98 09/12/16 20:55 36.6 84 18 97/64 97 09/12/16 19:44 36.5 87 16 93/68 97 2.0 09/12/16 18:19 36.4 90 95/62 94 Room Air 09/12/16 17:46 90 18 107/75 93 Room Air 09/12/16 17:30 36.4 90 18 89/61 90 09/12/16 16:00 96 Nasal Cannula 2.0 09/12/16 15:35 36.8 87 18 106/75 97 Nasal Cannula 1.5 Lab Results: Results Past 24 Hours Test 09/13/16 08:27 Range/Units White Blood Count 17.66 4.8-10.8 K/uL Red Blood Count 3.67 4.2-5.4 M/uL Hemoglobin 9.8 12.0-16.0 g/dL Hematocrit 29.1 37-47 % Mean Corpuscular Volume 79.3 80-100 fL Mean Corpuscular Hemoglobin 26.7 25-34 pg Mean Corpuscular Hemoglobin Concent 33.7 32-36 g/dl RDW Standard Deviation 49.3 36.4-46.3 fL RDW Coefficient of Variation 17.0 11.5-14.5 % Platelet Count 421 130-400 K/uL Mean Platelet Volume 8.2 7.4-10.4 fL Sodium Level 122 136-145 mmol/L Potassium Level 4.4 3.5-5.1 mmol/L Chloride Level 88 98-107 mmol/L Carbon Dioxide Level 27 21-32 mmol/L Anion Gap 7.0 3-11 mmol/L Blood Urea Nitrogen 23 7-18 mg/dl Creatinine 1.50 0.60-1.20 mg/dl Est Creatinine Clear Calc Drug Dose 37.1 ml/min Estimated GFR () 39.9 Estimated GFR (Non- 34.4 BUN/Creatinine Ratio 15.4 10-20 Random Glucose 108 70-99 mg/dl Calcium Level 8.7 8.5-10.1 mg/dl
[2016-09-13] MEDS: WARFARIN SOD 5 MG TAB PO SCH (15:50)
[2016-09-13 17:39] LABS: BUN/CREATININE RATIO 15.6 (10-20); CALCIUM 8.4 mg/dl (8.5-10.1); CREATININE 1.4 mg/dl (0.60-1.20); POTASSIUM 4.5 mmol/L (3.5-5.1)
[2016-09-13] MEDS: [UNRECOGNIZED DRUG - OTHER] PO SCH (17:54)
[2016-09-13] MEDS: MONTELUKAST SOD 10 MG TAB PO SCH (20:22)
[2016-09-13] MEDS: BISACODYL 5 MG TABEC PO SCH (20:27)
[2016-09-13 22:33] LABS: BUN/CREATININE RATIO 17.1 (10-20); CALCIUM 8.3 mg/dl (8.5-10.1); CREATININE 1.3 mg/dl (0.60-1.20); POTASSIUM 4.1 mmol/L (3.5-5.1)
[2016-09-14] VITALS (10 sets, daily range): BP systolic 109–157; BP diastolic 67–81; PULSE 62–87; TEMP 36.3–37; O2SAT 93–100
[2016-09-14] MEDS: ENOXAPARIN 100 MG/1ML SYR SC SCH ×2 (00:42→11:43)
[2016-09-14] MEDS: SODIUM CHLORIDE 0.9% 1000ML 1,000 ML IV SCH ×3 (00:42→19:54)
[2016-09-14] MEDS: CHECK FENTANYL PATCH PLACEMENT SCH ×3 (00:43→16:25)
[2016-09-14 07:12] LABS: INR 1.4 (0.9-1.1); PROTHROMBIN TIME (PATIENT) 15.4 SECONDS (9.0-12.0)
[2016-09-14 07:27] LABS: BUN/CREATININE RATIO 18.8 (10-20); CALCIUM 8.4 mg/dl (8.5-10.1); CREATININE 1.1 mg/dl (0.60-1.20); POTASSIUM 4.4 mmol/L (3.5-5.1)
[2016-09-14] MEDS: OXYCODONE HCL 20 MG TABCR (OXYCONTIN) PO SCH ×2 (08:38→19:53)
[2016-09-14] MEDS: POLYETHYLENE (MIRALAX) 17 GM PACK PO SCH (08:38)
[2016-09-14] MEDS: DOCUSATE SODIUM/SENNA 50/8.6MG TAB PO SCH ×2 (08:40→19:52)
[2016-09-14] MEDS: GABAPENTIN 100 MG CAP PO SCH ×3 (08:40→19:51)
[2016-09-14] MEDS: ENALAPRIL MALEATE 10 MG TAB PO SCH (08:41)
[2016-09-14] MEDS: BISACODYL 5 MG TABEC PO SCH ×2 (08:46→19:51)
[2016-09-14] MEDS: HYDROmorphone INJ 1 MG/ML SYR IV PRN ×4 (10:32→18:24)
[2016-09-14 10:52] LABS: URINE APPEARANCE CLEAR (CLEAR); URINE BILIRUBIN NEG (NEG); URINE COLOR YELLOW; URINE EPITHELIAL CELL AUTO 0-5 /lpf (0-5); URINE NITRITE NEG (NEG); URINE SPECIFIC GRAVITY 1.003 (1.000-1.030); UROBILINOGEN NEG (NEG); ZZUR CULT IF INDIC CLEAN CATCH YES
[2016-09-14 11:21] LABS: MANUAL MICROSCOPIC REQUIRED? NO; REVIEW REQ? NO
[2016-09-14 12:32] LABS: BUN/CREATININE RATIO 20.3 (10-20); CALCIUM 8.7 mg/dl (8.5-10.1); CREATININE 0.95 mg/dl (0.60-1.20); POTASSIUM 4.1 mmol/L (3.5-5.1)
[2016-09-14] MEDS: WARFARIN SOD 5 MG TAB PO SCH (16:26)
[2016-09-14] MEDS: DICLOFENAC SOD 1% GEL 100 GM TUBE EXT PRN (16:28)
--- NOTE | 2016-09-14 16:31 | Progress Note ---
Internal Med Progress Note Date of Service: Sep 14, 2016. Provider Documentation: SUBJECTIVE: Patient couldn't get her radiation rx due to excessive pain. No BM yet. Denies any chest pain, cough, sob, abdominal pain,fever, chills OBJECTIVE: Vital Signs-as noted below Exam: General-AAOX2, Not in distress Neck-Supple Lungs-AEBE, clear Heart-s1, s2 Normal Abdomen-Left groin, pelvis tenderness, soft, no rigidity, guarding Extremities-Left ext- +2 edema, Right ext +1 edema Neuro-AAOX2, No focal deficits Lab data as noted below. Diagnostic Radiology PELVIS CT CT DOSE: 1553.24 mGy.cm HISTORY: Left hip pain. TECHNIQUE: Multiaxial CT images of the pelvis were performed and reformatted in the sagittal and coronal plane following the use of intravenous contrast. COMPARISON: Radiation oncology CT 09/08/2016. FINDINGS: No significant change in the 11 x 10 cm destructive mass centered within the left iliac wing. This displaces the left iliopsoas muscle and adjacent iliac vessels. No acute pelvic hematoma. Trace gas within the bladder lumen is likely due to recent catheterization. Small fat-containing bilateral hernias. No inguinal or pelvic lymphadenopathy. There is a left total hip arthroplasty. No acute fractures identified within the pelvis. Colonic diverticulosis. Hysterectomy. IMPRESSION: No significant change in the 11 x 10 cm destructive mass centered within the left iliac wing. No acute pelvic hematoma identified. CT LUMBAR SPINE WITH CT DOSE: CLINICAL HISTORY: Back pain with left leg radiculopathy. Patient on Lovenox. Possible hemorrhage. TECHNIQUE: The patient was scanned in a dynamic helical fashion during intravenous administration of 66 cc of Optiray 320. COMPARISON STUDY: PET/CT scan dated 02/18/2011 FINDINGS: The visualized portions of the lung bases reveal interstitial thickening. The left kidney appears absent. There is a partially visualized destructive mass centered on the left iliac wing. This may further described on a CT scan of the pelvis. No acute fractures are visualized. There is a circumferential disc bulge and moderate spinal stenosis at the L2-3 level. There is a circumferential disc bulge and moderate spinal stenosis at the L3-4 level. There is a circumferential disc bulge and mild to moderate spinal stenosis at the L4-5 level. IMPRESSION: 1. No acute fractures or subluxations identified 2. Multilevel spondylitic changes with moderate spinal stenosis at the L2-3 and L3-4 levels. There is mild to moderate spinal stenosis at the L4-5 level. 3. Partially visualized large destructive mass centered on the left iliac bone. This will be further described in a CT scan of the pelvis which was performed the same day ASSESSMENT & PLAN: Assessment and Plan JAZMÍN - Resolved Likely pre renal secondary to volume depletion sec to inadequate PO intake, vomiting x 2 yesterday -Creatinine bumped up to 1.50 from 0.8 yesterday and today down to 1.10 -IV NS at 100 cc/hour . 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 On Fentanyl 25 mcg patch, Oxycodone 20 mg q 12 hours started on 09/13/16, IV Dilaudid 1 mg prn. Increased to IV Dilaudid 2 mg prior to radiation rx. Pain management consulted due to inadequate pain control. -Radiation oncology on board- for radiation rx in AM -PT and OT evaluation ANEMIA Hb 8.2 on presentation, need it to be > 10 as plan is for radiation rxs per discussion with Dr Villagran -Transfused 2 units of PRBCS on 09/12/16 -Monitor H & H METASTATIC RCC -Continue Sutent recently started by Dr. Villagran -Radiation oncology consulted LLE DVT Diagnosed by ultrasound 09/08/16 -Started on Lovenox and Coumadin 09/09/16 -INR is 1.4. INR monitoring -Continue Lovenox and Coumadin together for at least 5 days and until INR >2 for 2 days HYPERTENSION- Stable -Continue enalapril and furosemide LEUKOCYTOSIS- Trending up -Afebrile; low suspicion for infection -Monitor closely for signs of infection -Monitor CBC CONSTIPATION -Laxatives added-- bowel regimen while on narcotics STAGE 1 PRESSURE ULCER LEFT BUTTOCK Present on arrival -Wound care nurse consulted DVT PROPHYLAXIS -On Lovenox and Coumadin CODE STATUS -Full code per my discussion with the patient PA DRUG MONITORING -Database queried with no issues identified DISPOSITION Lives alone - will need retirement placement PT/OT Follows with Dr. Gonzalez for primary care Discussed with daughters by bedside. Vital Signs: Date Time Temp Pulse Resp B/P Pulse Ox O2 Delivery O2 Flow Rate FiO2 09/14/16 14:43 36.6 85 20 112/67 99 09/14/16 12:46 36.9 84 20 153/75 99 2.0 09/14/16 11:54 36.8 87 20 157/79 97 09/14/16 08:30 Nasal Cannula 2.0 09/14/16 07:08 36.6 79 18 117/81 93 09/14/16 03:55 36.7 78 18 109/72 95 Nasal Cannula 1.5 09/14/16 00:10 36.6 62 18 141/79 93 Nasal Cannula 2.0 09/14/16 00:00 96 Nasal Cannula 2.0 09/13/16 19:15 36.7 81 20 160/72 96 Nasal Cannula 1.0 09/13/16 16:39 36.9 87 18 105/72 98 Nasal Cannula 1.0 Lab Results: Results Past 24 Hours Test 09/13/16 17:15 09/13/16 22:07 09/14/16 06:32 09/14/16 09:42 Range/Units Sodium Level 123 121 124 136-145 mmol/L Potassium Level 4.5 4.1 4.4 3.5-5.1 mmol/L Chloride Level 88 88 91 98-107 mmol/L Carbon Dioxide Level 25 25 26 21-32 mmol/L Anion Gap 10.0 8.0 7.0 3-11 mmol/L Blood Urea Nitrogen 22 22 21 7-18 mg/dl Creatinine 1.40 1.30 1.10 0.60-1.20 mg/dl Est Creatinine Clear Calc Drug Dose 39.7 42.8 51.4 ml/min Estimated GFR () 43.4 47.5 58.1 Estimated GFR (Non- 37.4 41.0 50.1 BUN/Creatinine Ratio 15.6 17.1 18.8 10-20 Random Glucose 116 134 111 70-99 mg/dl Calcium Level 8.4 8.3 8.4 8.5-10.1 mg/dl Prothrombin Time 15.4 9.0-12.0 SECONDS Prothromb Time International Ratio 1.4 0.9-1.1 Urine Color YELLOW Urine Appearance CLEAR CLEAR Urine pH 6.0 4.5-7.5 Urine Specific [place] 1.003 1.000-1.030 Urine Protein NEG NEG Urine Glucose (UA) NEG NEG Urine Ketones NEG NEG Urine Occult Blood 1+ NEG Urine Nitrite NEG NEG Urine Bilirubin NEG NEG Urine Urobilinogen NEG NEG Urine Leukocyte Esterase MODERATE NEG Urine WBC (Auto) 10-30 0-5 /hpf Urine RBC (Auto) 0-4 0-4 /hpf Urine Hyaline Casts (Auto) 0 0-5 /lpf Urine Epithelial Cells (Auto) 0-5 0-5 /lpf Urine Bacteria (Auto) 4+ NEG Urine Osmolality 193 500-800 mOms/kg Urine Random Sodium 43 mEq/L Test 09/14/16 12:04 Range/Units Sodium Level 124 136-145 mmol/L Potassium Level 4.1 3.5-5.1 mmol/L Chloride Level 91 98-107 mmol/L Carbon Dioxide Level 27 21-32 mmol/L Anion Gap 6.0 3-11 mmol/L Blood Urea Nitrogen 19 7-18 mg/dl Creatinine 0.95 0.60-1.20 mg/dl Est Creatinine Clear Calc Drug Dose 59.6 ml/min Estimated GFR () 69.4 Estimated GFR (Non- 59.8 BUN/Creatinine Ratio 20.3 10-20 Random Glucose 105 70-99 mg/dl Osmolality 263 280-300 mOsm/kg Calcium Level 8.7 8.5-10.1 mg/dl Microbiology Results 09/14/16 Urine Culture, Received Pending
[2016-09-14] MEDS: [UNRECOGNIZED DRUG - OTHER] PO SCH (18:03)
--- NOTE | 2016-09-14 19:42 | Nephrology Consultation ---
Nephrology Consultation Date of Consultation: Sep 14, 2016. Attending Physician: Dr Poon Requesting Physician: Dr Poon Reason for Consultation: hyponatremia, suspect hypovolemic History of Present Illness 71 year old female w/ stage 4 renal cell carcinoma w/ pelvic metastasis, recently dx'd LLe DVT admitted on 09/11 for mgt of worsening back/hip pain and ambulatory dysfunction. 09/02/16 PET shows 12 cm L iliac/psoas metastatic disease w/ invasion into L femoral vein, L gluteal musculature. Plan had been to start palliative XRT today. had received sutent from Dr Villagran in the past w / plan to resume; no other recent/new CTX agents. No recent outpt hx of hyponatremia. Her presenting Na was 134; she trended down to 122 by yesterday am, and is 124 this am. Her lasix was continued 40 mg po daily; also started on NS at 100 mL hourly on 09/13 afternoon. No NSAIDS, no thiazides as inpt or outpt. She is about 1.4 L positive on the admission but only was negative for first time today slightly by 400 mL. Last lasix dose was yesterday am. Past Medical/Surgical History Medical Problems: (1) Intractable pain Status: Acute (2) Left leg DVT Status: Acute (3) Pelvic mass Status: Acute -RCC stage 4, s/p L nephrectomy -HTN -1992 L spine surgery -02/2015 L total hip arthroplasty -s/p oopherectomy, hysterectomy, cholecystectomy, appendectomy Family History FH: CAD (coronary artery disease) FATHER FH: brain aneurysm MOTHER FH: cancer BROTHER (stomach CA) SISTER (lung CA) Stroke FATHER Social History Smoking Status: Former Smoker Alcohol Use: none Drug Use: none Marital Status: Occupation Status: retired Allergies Coded Allergies: Alendronate (Verified Allergy, Unknown, GI upset, 09/11/16) Medications Current Inpatient Medications Medications (Trade) Dose Ordered Sig/Benjamín Route Start Time Stop Time Status Last Admin Dose Admin Ioversol (Optiray 320) 125 ml UD PRN IV 09/11/16 10:30 09/15/16 10:29 Naloxone HCl (Narcan Inj) 0.1 mg Q5M PRN IV 09/11/16 14:00 10/11/16 13:59 Enalapril Maleate (Vasotec Tab) 10 mg QAM PO 09/12/16 08:00 10/12/16 08:59 09/14/16 08:41 10 MG Montelukast Sodium (Singulair Tab) 10 mg HS PO 09/11/16 21:00 10/11/16 20:59 09/13/16 20:22 10 MG Warfarin Sodium (Coumadin Tab) 5 mg DAILY@1600 PO 09/11/16 16:00 10/11/16 15:59 09/14/16 16:26 5 MG Senna/Docusate Sodium (Senokot S Tab) 2 tab BID PO 09/11/16 20:11 10/11/16 20:59 09/14/16 08:40 2 TAB Non-Formulary Medication (Non-Formulary Patient'S Own Med) 1 ea DAILY@1800 PO 09/11/16 18:00 10/06/16 18:01 09/13/16 17:54 1 EA Fentanyl (Duragesic Patch) 25 mcg Q72H TD 09/11/16 21:00 09/25/16 20:59 09/11/16 21:27 25 MCG Miscellaneous (Fentanyl Patch Remove & Waste) 1 ea Q3D N/A 09/11/16 21:00 10/11/16 20:59 09/11/16 21:32 1 EA Miscellaneous Information (Check Fentanyl Patch Placement) 1 ea QS N/A 09/12/16 00:00 10/12/16 00:00 09/14/16 16:25 1 EA Gabapentin (Neurontin Cap) 100 mg TID PO 09/11/16 20:11 10/11/16 20:59 09/14/16 13:34 100 MG Diclofenac Sodium (Voltaren 1% Top Gel) 1 appln TID PRN EXT 09/12/16 12:15 10/12/16 12:14 09/14/16 16:28 1 APPLN Enoxaparin Sodium (Lovenox Inj) 90 mg Q12@0000,1200 SC 09/13/16 00:00 10/13/16 00:00 09/14/16 11:43 90 MG Polyethylene (Miralax Powder Packet) 17 gm DAILY PO 09/13/16 08:00 10/13/16 07:59 09/14/16 08:38 17 GM Ondansetron HCl (Zofran Inj) 4 mg Q6H PRN IV 09/12/16 18:15 10/12/16 18:14 09/13/16 09:38 4 MG Hydromorphone HCl (Dilaudid Inj) 1 mg Q1H PRN IV 09/12/16 20:00 09/26/16 19:59 09/14/16 13:33 1 MG Oxycodone HCl 20 mg 20 mg Q12H PO 09/12/16 21:00 09/26/16 20:59 09/14/16 08:38 20 MG Sodium Chloride (Nss 1000ml) 1,000 ml @ 100 mls/hr Q10H IV 09/13/16 15:00 10/13/16 14:59 09/14/16 10:36 100 MLS/HR Hydromorphone HCl (Dilaudid Inj) 2 mg ONE PRN IV 09/14/16 12:45 09/28/16 12:44 Bisacodyl (Dulcolax Tab) 10 mg BID PO 09/14/16 20:00 10/14/16 19:59 Home Meds and Scripts Medications Dose Route/Sig Max Daily Dose Days Date Category Dose Instructions Jantoven (Warfarin Sodium) 5 Mg Tab 5 Mg PO QPM 09/11/16 Reported Sutent (Sunitinib Malate) 25 Mg Cap 25 Mg PO DAILY 09/11/16 Reported TAKES DAILY FOR 4 WEEKS THEN OFF FOR 2 WEEKS STARTED 09/09/16 Fentanyl 12 Mcg Tdsy 12 Mcg TD Q3D 09/11/16 Reported Lovenox (Enoxaparin) 100 Mg/Ml Inj 100 Mg SC Q12 09/11/16 Reported Lasix (Furosemide) 40 Mg Tab 40 Mg PO DAILY 09/08/16 Reported Singulair (Montelukast Sodium) 10 Mg Tab 10 Mg PO HS 90 09/08/16 Reported [place] 5MG/325MG (Acetaminophen/Hydrocodone Bitart) Tab 1-2 Tablet PO Q4 PRN 09/08/16 Reported PRN PAIN Calcium 600 + D 600-200 mg-Unit (Calcium Carbonate-Cholecalcife) 1 Tab Tab 2 Tabs PO QAM 07/24/14 Reported Vasotec (Enalapril Maleate) 10 Mg Tab 10 Mg PO QAM 07/24/14 Reported Review of Systems Constitutional: + fatigue, + weakness, No fever Eyes: No worsening of vision ENT: No hearing loss Respiratory: No cough, No dyspnea at rest, No shortness of breath Cardiac: + edema (stable chronic LLE edema), No chest pain, No palpitations Abdomen: + constipation, + nausea (mild currently), + vomiting (had emesis x 1 on 09/12; none since), No GI bleeding, No pain Musculoskeletal: + joint pain (6/10 currently), + muscle pain (6/10 currently) Female : No dysuria, No hematuria Neuro: + balance problems, + weakness, No memory loss Psych: No depression symptoms Heme: No abnormal bleeding/bruising Endo: + fatigue Skin: No rash Physical Exam Date Time Temp Pulse Resp B/P Pulse Ox O2 Delivery O2 Flow Rate FiO2 09/14/16 14:43 36.6 85 20 112/67 99 09/14/16 12:46 36.9 84 20 153/75 99 2.0 09/14/16 11:54 36.8 87 20 157/79 97 09/14/16 08:30 Nasal Cannula 2.0 09/14/16 07:08 36.6 79 18 117/81 93 09/14/16 03:55 36.7 78 18 109/72 95 Nasal Cannula 1.5 09/14/16 00:10 36.6 62 18 141/79 93 Nasal Cannula 2.0 09/14/16 00:00 96 Nasal Cannula 2.0 09/13/16 19:15 36.7 81 20 160/72 96 Nasal Cannula 1.0 24-Hour Column 09/14/16 07:59 Intake Total 1879 ml Output Total 1050 ml Balance 829 ml General Appearance: WD/WN, no apparent distress, + obese, + pertinent finding ( lying flat on 02NC) Eyes: EOMI ENT: hearing grossly normal, + pertinent finding (dry mm) Neck: supple Respiratory/Chest: lungs clear, no respiratory distress, no accessory muscle use, + decreased breath sounds Cardiovascular: regular rate, rhythm, + pertinent finding (LLE 2+ edema) Abdomen: normal bowel sounds, non tender, soft Extremities: no pedal edema (RLE only), + pedal edema (LLE; none R) Neurologic/Psych: alert, normal mood/affect, oriented x 3 (perry, fluent speech, good historian) Skin: no jaundice, warm/dry, no rash Diagnostics Last 24 Hours Test 09/13/16 17:15 09/13/16 22:07 09/14/16 06:32 09/14/16 09:42 Sodium Level 123 mmol/L 121 mmol/L 124 mmol/L Potassium Level 4.5 mmol/L 4.1 mmol/L 4.4 mmol/L Chloride Level 88 mmol/L 88 mmol/L 91 mmol/L Carbon Dioxide Level 25 mmol/L 25 mmol/L 26 mmol/L Anion Gap 10.0 mmol/L 8.0 mmol/L 7.0 mmol/L Blood Urea Nitrogen 22 mg/dl 22 mg/dl 21 mg/dl Creatinine 1.40 mg/dl 1.30 mg/dl 1.10 mg/dl Est Creatinine Clear Calc Drug Dose 39.7 ml/min 42.8 ml/min 51.4 ml/min Estimated GFR () 43.4 47.5 58.1 Estimated GFR (Non- 37.4 41.0 50.1 BUN/Creatinine Ratio 15.6 17.1 18.8 Random Glucose 116 mg/dl 134 mg/dl 111 mg/dl Calcium Level 8.4 mg/dl 8.3 mg/dl 8.4 mg/dl Prothrombin Time 15.4 SECONDS Prothromb Time International Ratio 1.4 Urine Color YELLOW Urine Appearance CLEAR Urine pH 6.0 Urine Specific [place] 1.003 Urine Protein NEG Urine Glucose (UA) NEG Urine Ketones NEG Urine Occult Blood 1+ Urine Nitrite NEG Urine Bilirubin NEG Urine Urobilinogen NEG Urine Leukocyte Esterase MODERATE Urine WBC (Auto) 10-30 /hpf Urine RBC (Auto) 0-4 /hpf Urine Hyaline Casts (Auto) 0 /lpf Urine Epithelial Cells (Auto) 0-5 /lpf Urine Bacteria (Auto) 4+ Urine Osmolality 193 mOms/kg Urine Random Sodium 43 mEq/L Test 09/14/16 12:04 Sodium Level 124 mmol/L Potassium Level 4.1 mmol/L Chloride Level 91 mmol/L Carbon Dioxide Level 27 mmol/L Anion Gap 6.0 mmol/L Blood Urea Nitrogen 19 mg/dl Creatinine 0.95 mg/dl Est Creatinine Clear Calc Drug Dose 59.6 ml/min Estimated GFR () 69.4 Estimated GFR (Non- 59.8 BUN/Creatinine Ratio 20.3 Random Glucose 105 mg/dl Osmolality 263 mOsm/kg Calcium Level 8.7 mg/dl Diagnostic Radiology: CT w/ IV contrast L spine/pelvis -no acute fracture or bleed -unchanged 11 cm L iliac wing destructive mass -disc bulge + spinal stenosis L2-3, L3-4, L 4-5 Assessment & Plan 71 y/o F w/ metastatic renal cell carcinoma and solitary kidney has hypoosmolar hyponatremia. Her sodium has worsened with hydration, though also I/O not currently ordered/may not be complete. She had acute renal failure w/ peak creatinine 1.5 (baseline 0.8-0.9), possibly contrast induced, and this has resolved w/ hydration. Hypoosmolar hyponatremia, worsened since admission CT scan/ JAZMÍN while receiving lasix >> MARICRUZ + diuretics can lead to intensely prerenal state; may have hypovolemic hyponatremia versus possibly component of low solute diet < if low solute/ pain is culprit as suggested by urine studies, she will not improve further w/ saline. K is acceptable; mag was ok on admission. She is slightly dry or possibly euvolemic > challenging to assess on exam alone. -ordered CXR < has hypoxia and this will help to est volume status -urine studies suggest she has low solute diet/ poor po intake contributing to low Na >> encourage po intake ad donna especially high solute including for now high sodium intake like protein shakes, broth, chips; no indication for fluid limit at this time -continue efforts to control pain and jacob N -need strict I/O q shift and so ordered -for now cont NS at 100 mL hourly; stopped lasix for now; lasix + NS is however sometimes used w/ hyponatremia and may yet be indicated for her -monitor bmp q8 hrs < will order for this evening; has orders in for am; will reassess need at that time -urine studies recheck ordered for am Appreciate consult; will follow with you.
[2016-09-14] MEDS: MONTELUKAST SOD 10 MG TAB PO SCH (19:52)
[2016-09-14] MEDS: FENTANYL 25 MCG/HR TDSY TD SCH (19:58)
[2016-09-14] MEDS: FENTANYL PATCH REMOVE & WASTE SCH (20:15)
--- NOTE | 2016-09-14 20:20 | DIAGNOSTIC IMAGING REPORT ---
CHEST ONE VIEW PORTABLE CLINICAL HISTORY: Hypoxia. COMPARISON STUDY: Chest radiograph January 29, 2015. FINDINGS: Lung volumes are normal. No pneumothorax or pleural effusion is present. Opacity along the left heart border is unchanged and likely reflects epicardial fat pad or atelectasis. Mild cardiomegaly is unchanged. There is no evidence for pulmonary edema. There is no consolidation to suggest pneumonia. Mild left lower lung opacity favors atelectasis. IMPRESSION: 1. No acute findings. 2. Stable cardiomegaly without evidence of pulmonary edema. 3. Mild left basilar opacity which favors atelectasis. Electronically signed by: Jose Montalvo M.D. 09/14/2016 8:19 PM Dictated Date/Time: 09/14/2016 8:17 PM
[2016-09-14 20:37] LABS: BUN/CREATININE RATIO 15.7 (10-20); CALCIUM 8.2 mg/dl (8.5-10.1); CREATININE 1.1 mg/dl (0.60-1.20); POTASSIUM 4.3 mmol/L (3.5-5.1)
[2016-09-15] VITALS (7 sets, daily range): BP systolic 112–154; BP diastolic 72–125; PULSE 74–83; TEMP 36.5–37.3; O2SAT 93–100
[2016-09-15] MEDS: CHECK FENTANYL PATCH PLACEMENT SCH ×3 (00:01→16:59)
[2016-09-15] MEDS: HYDROmorphone INJ 1 MG/ML SYR IV PRN ×4 (00:02→19:07)
[2016-09-15] MEDS: ENOXAPARIN 100 MG/1ML SYR SC SCH ×2 (00:02→12:02)
[2016-09-15] MEDS: POLYETHYLENE (MIRALAX) 17 GM PACK PO SCH (07:25)
[2016-09-15] MEDS: ENALAPRIL MALEATE 10 MG TAB PO SCH (07:27)
[2016-09-15] MEDS: DOCUSATE SODIUM/SENNA 50/8.6MG TAB PO SCH ×2 (07:27→21:50)
[2016-09-15] MEDS: BISACODYL 5 MG TABEC PO SCH ×2 (07:28→21:49)
[2016-09-15] MEDS: GABAPENTIN 100 MG CAP PO SCH ×3 (07:29→21:50)
[2016-09-15] MEDS: HYDROmorphone INJ 2 MG/ML SYR/VIAL IV PRN (07:57)
--- NOTE | 2016-09-15 08:51 | Pain Management Progress Note ---
Pain Management Progress Note Date of Service Sep 15, 2016. Subjective Attempt was made to see to see this patient this am.. She was not in her room...was undergoing RT. Will attempt to evaluate her alter today. Objective Vital Signs: Last Vital Signs Documentation Date Time Temp Pulse Resp B/P Pulse Ox O2 Delivery O2 Flow Rate FiO2 09/15/16 08:00 100 Nasal Cannula 2.0 09/15/16 04:24 36.5 74 20 112/73 [employer] Voice Recognition This chart was completed in part utilizing [employer] Voice Recognition Software. Random word insertions, pronoun errors, and incomplete sentences are an occasional consequence of this system due to software limitations and ambient noise. Any questions or concerns about the content, text or information contained within the body of this dictation should be directly addressed to the provider for clarification.
[2016-09-15] MEDS: OXYCODONE HCL 20 MG TABCR (OXYCONTIN) PO SCH ×2 (09:25→21:49)
[2016-09-15 10:33] LABS: HEMATOCRIT 29.9 % (37-47); MEAN CELL VOLUME 82.4 fL (80-100); MEAN CORPUSCULAR HEMOGLOBIN 26.4 pg (25-34); MEAN CORPUSCULAR HGB CONC 32.1 g/dl (32-36); MEAN PLATELET VOLUME 8.5 fL (7.4-10.4); PLATELET COUNT 471 K/uL (130-400); RED BLOOD COUNT 3.63 M/uL (4.2-5.4); WHITE BLOOD COUNT 10.54 K/uL (4.8-10.8)
[2016-09-15 10:41] LABS: INR 1.6 (0.9-1.1); PROTHROMBIN TIME (PATIENT) 17.1 SECONDS (9.0-12.0)
[2016-09-15 11:00] LABS: CALCIUM 8.6 mg/dl (8.5-10.1); CREATININE 0.88 mg/dl (0.60-1.20); POTASSIUM 4.4 mmol/L (3.5-5.1)
[2016-09-15] MEDS: SODIUM CHLORIDE 0.9% 1000ML 1,000 ML IV SCH (12:03)
[2016-09-15] MEDS ORDERED: MAGNESIUM HYDROXIDE SUSP 30 ML UDC PO PRN (16:45)
[2016-09-15] MEDS: WARFARIN SOD 5 MG TAB PO SCH (16:58)
[2016-09-15] MEDS ORDERED: LACTULOSE SYRUP 30 GM/45 ML UDP PO PRN (17:00)
--- NOTE | 2016-09-15 17:12 | Progress Note ---
Medicine Progress Note Date & Time of Visit: Sep 15, 2016 at 16:56. Subjective patient seen resting in bed states her back pain is better controlled today s/p 1st radiation today denies abdominal pain, nausea, vomiting no bleeding denies other symptoms Objective Last 8 Hrs Date Time Temp Pulse Resp B/P Pulse Ox O2 Delivery O2 Flow Rate FiO2 09/15/16 16:27 36.7 82 18 116/74 93 Room Air 09/15/16 11:23 36.6 78 18 125/76 99 Nasal Cannula 2.0 Physical Exam: General- oriented x 3, not in distress, speaks in sentences with no effort Eyes- anicteric Neck-no adenopathy Lungs- clear to auscultation b/l Heart- normal rate, regular rhythm; no murmur Abdomen- normal bowel sounds, soft, nontender Extremities- left lower leg: (+) edema, mild warmth, no tenderness right leg: essentially normal Neuro- alert, oriented x 3; no gross focal deficits Skin- warm & dry Laboratory Results: Last 24 Hours Test 09/14/16 20:08 09/15/16 00:15 09/15/16 10:08 Sodium Level 128 mmol/L 129 mmol/L Potassium Level 4.3 mmol/L 4.4 mmol/L Chloride Level 94 mmol/L 95 mmol/L Carbon Dioxide Level 27 mmol/L 26 mmol/L Anion Gap 7.0 mmol/L 8.0 mmol/L Blood Urea Nitrogen 17 mg/dl 15 mg/dl Creatinine 1.10 mg/dl 0.88 mg/dl Est Creatinine Clear Calc Drug Dose 51.4 ml/min 64.2 ml/min Estimated GFR () 58.1 76.1 Estimated GFR (Non- 50.1 65.6 BUN/Creatinine Ratio 15.7 17.0 Random Glucose 146 mg/dl 128 mg/dl Calcium Level 8.2 mg/dl 8.6 mg/dl Urine Osmolality 180 mOms/kg Urine Random Sodium 12 mEq/L White Blood Count 10.54 K/uL Red Blood Count 3.63 M/uL Hemoglobin 9.6 g/dL Hematocrit 29.9 % Mean Corpuscular Volume 82.4 fL Mean Corpuscular Hemoglobin 26.4 pg Mean Corpuscular Hemoglobin Concent 32.1 g/dl RDW Standard Deviation 54.9 fL RDW Coefficient of Variation 17.9 % Platelet Count 471 K/uL Mean Platelet Volume 8.5 fL Nucleated RBC Absolute Count (auto) 0.04 K/uL Nucleated Red Blood Cells % 0.4 % Prothrombin Time 17.1 SECONDS Prothromb Time International Ratio 1.6 Assessment & Plan 71 year old female with history of Metastatic Renal Cell CA... 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 - currently on Fentanyl patch, Oxycodone q12, and PRN Dilaudid pain controlled adequately today - Day 08/02 Radiation today Pain Management consult pending CONSTIPATION likely narcotic induced (+) Flatus - Milk of Mg, Lactulose ordered continue Senokot S, Docusate, Miralax ANEMIA Hb 8.2 on presentation, need it to be > 10 as plan is for radiation rxs per discussion with Dr Villagran -Transfused 2 units of PRBCS on 09/12/16 - Hg 9.6 monitor METASTATIC RCC -Continue Sutent recently started by Dr. 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 Gonzalez for primary care called daughter but no answer, left voicemail requesting for callback Current Inpatient Medications: Current Inpatient Medications Medications (Trade) Dose Ordered Sig/Benjamín Route Start Time Stop Time Status Last Admin Dose Admin Naloxone HCl (Narcan Inj) 0.1 mg Q5M PRN IV 09/11/16 14:00 10/11/16 13:59 Enalapril Maleate (Vasotec Tab) 10 mg QAM PO 09/12/16 08:00 10/12/16 08:59 09/15/16 07:27 10 MG Montelukast Sodium (Singulair Tab) 10 mg HS PO 09/11/16 21:00 10/11/16 20:59 09/14/16 19:52 10 MG Warfarin Sodium (Coumadin Tab) 5 mg DAILY@1600 PO 09/11/16 16:00 10/11/16 15:59 09/14/16 16:26 5 MG Senna/Docusate Sodium (Senokot S Tab) 2 tab BID PO 09/11/16 20:11 10/11/16 20:59 09/15/16 07:27 2 TAB Non-Formulary Medication (Non-Formulary Patient'S Own Med) 1 ea DAILY@1800 PO 09/11/16 18:00 10/06/16 18:01 09/14/16 18:03 1 EA Fentanyl (Duragesic Patch) 25 mcg Q72H TD 09/11/16 21:00 09/25/16 20:59 09/14/16 19:58 25 MCG Miscellaneous (Fentanyl Patch Remove & Waste) 1 ea Q3D N/A 09/11/16 21:00 10/11/16 20:59 09/14/16 20:15 1 EA Miscellaneous Information (Check Fentanyl Patch Placement) 1 ea QS N/A 09/12/16 00:00 10/12/16 00:00 09/15/16 07:29 1 EA Gabapentin (Neurontin Cap) 100 mg TID PO 09/11/16 20:11 10/11/16 20:59 09/15/16 13:40 100 MG Diclofenac Sodium (Voltaren 1% Top Gel) 1 appln TID PRN EXT 09/12/16 12:15 3/27/17 12:14 09/14/16 16:28 1 APPLN Enoxaparin Sodium (Lovenox Inj) 90 mg Q12@0000,1200 SC 09/13/16 00:00 10/13/16 00:00 09/15/16 12:02 90 MG Polyethylene (Miralax Powder Packet) 17 gm DAILY PO 09/13/16 08:00 10/13/16 07:59 09/15/16 07:25 17 GM Ondansetron HCl (Zofran Inj) 4 mg Q6H PRN IV 09/12/16 18:15 10/12/16 18:14 09/13/16 09:38 4 MG Hydromorphone HCl (Dilaudid Inj) 1 mg Q1H PRN IV 09/12/16 20:00 09/26/16 19:59 09/15/16 13:13 1 MG Oxycodone HCl 20 mg 20 mg Q12H PO 09/12/16 21:00 09/26/16 20:59 09/15/16 09:25 20 MG Sodium Chloride (Nss 1000ml) 1,000 ml @ 50 mls/hr Q20H IV 09/13/16 15:00 09/15/16 12:03 50 MLS/HR Hydromorphone HCl (Dilaudid Inj) 2 mg ONE PRN IV 09/14/16 12:45 09/28/16 12:44 09/15/16 07:57 2 MG Bisacodyl (Dulcolax Tab) 10 mg BID PO 09/14/16 20:00 10/14/16 19:59 09/15/16 07:28 10 MG
[2016-09-15] MEDS: [UNRECOGNIZED DRUG - OTHER] PO SCH (17:44)
[2016-09-15] MEDS: DICLOFENAC SOD 1% GEL 100 GM TUBE EXT PRN (19:08)
[2016-09-15] MEDS: MONTELUKAST SOD 10 MG TAB PO SCH (21:51)
[2016-09-16] VITALS (8 sets, daily range): BP systolic 111–149; BP diastolic 66–88; PULSE 73–84; TEMP 36.5–36.8; O2SAT 97–100
[2016-09-16] MEDS: CHECK FENTANYL PATCH PLACEMENT SCH ×4 (00:07→23:29)
[2016-09-16] MEDS: ENOXAPARIN 100 MG/1ML SYR SC SCH ×3 (00:07→23:30)
[2016-09-16] MEDS: HYDROmorphone INJ 1 MG/ML SYR IV PRN ×4 (06:16→23:31)
[2016-09-16 06:40] LABS: INR 1.9 (0.9-1.1)
[2016-09-16] MEDS: SODIUM CHLORIDE 0.9% 1000ML 1,000 ML IV SCH (06:50)
[2016-09-16] MEDS: OXYCODONE HCL 20 MG TABCR (OXYCONTIN) PO SCH ×2 (08:11→20:41)
[2016-09-16] MEDS: HYDROmorphone INJ 2 MG/ML SYR/VIAL IV PRN (08:11)
[2016-09-16] MEDS: POLYETHYLENE (MIRALAX) 17 GM PACK PO SCH (09:13)
[2016-09-16] MEDS: GABAPENTIN 100 MG CAP PO SCH ×3 (09:14→20:43)
[2016-09-16] MEDS: BISACODYL 5 MG TABEC PO SCH ×2 (09:14→20:42)
[2016-09-16] MEDS: ENALAPRIL MALEATE 10 MG TAB PO SCH (09:15)
[2016-09-16] MEDS: DOCUSATE SODIUM/SENNA 50/8.6MG TAB PO SCH ×2 (09:15→20:43)
[2016-09-16] MEDS: WARFARIN SOD 5 MG TAB PO SCH (15:36)
[2016-09-16] MEDS: [UNRECOGNIZED DRUG - OTHER] PO SCH (18:04)
--- NOTE | 2016-09-16 18:58 | Progress Note ---
Medicine Progress Note Date & Time of Visit: Sep 16, 2016 at 18:52. Subjective patient seen sitting up in bed had radiation treatment today back pain well controlled as per patient no BM yet, no nausea, abdominal pain denies other symptoms Objective Last 8 Hrs Date Time Temp Pulse Resp B/P Pulse Ox O2 Delivery O2 Flow Rate FiO2 09/16/16 16:11 36.6 81 18 121/78 97 Room Air 09/16/16 16:00 Nasal Cannula 2.0 Humidified Oxygen 09/16/16 11:17 36.8 84 18 111/66 97 Nasal Cannula 2.0 Physical Exam: General- oriented x 3, not in distress, speaks in sentences with no effort Lungs- clear to auscultation b/l, no rales/wheeze Heart- normal rate, regular rhythm; no murmur Abdomen- normal bowel sounds, non distended, soft, nontender Extremities- left lower leg: (+) edema, mild warmth, no tenderness right leg: essentially normal Neuro- alert, oriented x 3; no gross focal deficits Skin- warm & dry Laboratory Results: Last 24 Hours Test 09/16/16 05:52 09/16/16 18:38 Prothrombin Time 21.0 SECONDS Prothromb Time International Ratio 1.9 Assessment & Plan 71 year old female with history of Metastatic Renal Cell CA... 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 - currently on Fentanyl patch, Oxycodone q12, and PRN Dilaudid pain controlled adequately so far - Day 09/02 Radiation today Pain Management consult pending CONSTIPATION likely narcotic induced (+) Flatus - Milk of Mg, Lactulose ordered continue Senokot S, Docusate, Miralax - Dulcolax suppository today Tap water enema if Dulcolax suppository not successful ANEMIA Hb 8.2 on presentation, need it to be > 10 as plan is for radiation rxs per discussion with Dr Villagran -Transfused 2 units of PRBCS on 09/12/16 - Hg 9.6 monitor METASTATIC RCC -Continue Sutent recently started by Dr. Villagran -Radiation oncology consulted LLE DVT Diagnosed by ultrasound 09/08/16 -Started on Lovenox and Coumadin 09/09/16 - INR 1.9 continue Coumadin + Lovenox - Continue Lovenox and Coumadin together for at least 5 days and until INR >2 for 2 days HYPERTENSION - Stable -Continue enalapril and furosemide LEUKOCYTOSIS - resolved - urine culture: (+) Klebsiella > 100k - Ceftriaxone x 3 days STAGE 1 PRESSURE ULCER LEFT BUTTOCK Present on arrival -Wound care nurse consulted DVT PROPHYLAXIS -On Lovenox and Coumadin CODE STATUS -Full code per my discussion with the patient PA DRUG MONITORING -Database queried with no issues identified DISPOSITION Lives alone - will need care home placement PT/OT Follows with Dr. Gonzalez for primary care updated daughter yesterday she is comfortable with plan of care Current Inpatient Medications: Current Inpatient Medications Medications (Trade) Dose Ordered Sig/Benjamín Route Start Time Stop Time Status Last Admin Dose Admin Naloxone HCl (Narcan Inj) 0.1 mg Q5M PRN IV 09/11/16 14:00 10/11/16 13:59 Enalapril Maleate (Vasotec Tab) 10 mg QAM PO 09/12/16 08:00 10/12/16 08:59 09/16/16 09:15 10 MG Montelukast Sodium (Singulair Tab) 10 mg HS PO 09/11/16 21:00 10/11/16 20:59 09/15/16 21:51 10 MG Warfarin Sodium (Coumadin Tab) 5 mg DAILY@1600 PO 09/11/16 16:00 10/11/16 15:59 09/16/16 15:36 5 MG Senna/Docusate Sodium (Senokot S Tab) 2 tab BID PO 09/11/16 20:11 10/11/16 20:59 09/16/16 09:15 2 TAB Non-Formulary Medication (Non-Formulary Patient'S Own Med) 1 ea DAILY@1800 PO 09/11/16 18:00 10/06/16 18:01 09/16/16 18:04 1 EA Fentanyl (Duragesic Patch) 25 mcg Q72H TD 09/11/16 21:00 09/25/16 20:59 09/14/16 19:58 25 MCG Miscellaneous (Fentanyl Patch Remove & Waste) 1 ea Q3D N/A 09/11/16 21:00 10/11/16 20:59 09/14/16 20:15 1 EA Miscellaneous Information (Check Fentanyl Patch Placement) 1 ea QS N/A 09/12/16 00:00 10/12/16 00:00 09/16/16 15:36 1 EA Gabapentin (Neurontin Cap) 100 mg TID PO 09/11/16 20:11 10/11/16 20:59 09/16/16 13:32 100 MG Diclofenac Sodium (Voltaren 1% Top Gel) 1 appln TID PRN EXT 09/12/16 12:15 10/12/16 12:14 09/15/16 19:08 1 APPLN Enoxaparin Sodium (Lovenox Inj) 90 mg Q12@0000,1200 SC 09/13/16 00:00 10/13/16 00:00 09/16/16 11:31 90 MG Polyethylene (Miralax Powder Packet) 17 gm DAILY PO 09/13/16 08:00 10/13/16 07:59 09/16/16 09:13 17 GM Ondansetron HCl (Zofran Inj) 4 mg Q6H PRN IV 09/12/16 18:15 10/12/16 18:14 09/13/16 09:38 4 MG Hydromorphone HCl (Dilaudid Inj) 1 mg Q1H PRN IV 09/12/16 20:00 09/26/16 19:59 09/16/16 13:34 1 MG Oxycodone HCl 20 mg 20 mg Q12H PO 09/12/16 21:00 09/26/16 20:59 09/16/16 08:11 20 MG Sodium Chloride (Nss 1000ml) 1,000 ml @ 50 mls/hr Q20H IV 09/13/16 15:00 3/1/17 06:50 50 MLS/HR Hydromorphone HCl (Dilaudid Inj) 2 mg ONE PRN IV 09/14/16 12:45 09/28/16 12:44 09/16/16 08:11 2 MG Bisacodyl (Dulcolax Tab) 10 mg BID PO 09/14/16 20:00 10/14/16 19:59 09/16/16 09:14 10 MG Magnesium Hydroxide (Milk Of Magnesia Susp) 30 ml Q6H PRN PO 09/15/16 16:45 10/15/16 16:44 09/15/16 21:50 30 ML Lactulose (Chronulac Syrup) 30 gm TID PRN PO 09/15/16 17:00 10/15/16 16:59 09/16/16 09:13 30 GM
[2016-09-16] MEDS ORDERED: TAP WATER ENEMA PR PRN (19:00)
[2016-09-16] MEDS ORDERED: BISACODYL 10 MG SUPP PR ONE (19:30)
[2016-09-16 19:38] LABS: BUN/CREATININE RATIO 18.6 (10-20); CALCIUM 8.8 mg/dl (8.5-10.1); CREATININE 0.8 mg/dl (0.60-1.20); POTASSIUM 4.6 mmol/L (3.5-5.1)
[2016-09-16] MEDS: CEFTRIAXONE SOD INJ 1 GM in DEXTROSE 5% ADD-VANTAGE 50ML 50 ML IV SCH (20:41)
[2016-09-16] MEDS: MONTELUKAST SOD 10 MG TAB PO SCH (20:42)
[2016-09-16] MEDS: DICLOFENAC SOD 1% GEL 100 GM TUBE EXT PRN (23:30)
[2016-09-17] VITALS (8 sets, daily range): BP systolic 121–168; BP diastolic 71–111; PULSE 70–87; TEMP 36.5–36.9; O2SAT 96–100
[2016-09-17] MEDS: HYDROmorphone INJ 1 MG/ML SYR IV PRN ×8 (02:52→22:28)
[2016-09-17 07:04] LABS: HEMATOCRIT 28.3 % (37-47); MEAN CELL VOLUME 82.7 fL (80-100); MEAN CORPUSCULAR HEMOGLOBIN 26.3 pg (25-34); MEAN CORPUSCULAR HGB CONC 31.8 g/dl (32-36); MEAN PLATELET VOLUME 8.2 fL (7.4-10.4); PLATELET COUNT 469 K/uL (130-400); RED BLOOD COUNT 3.42 M/uL (4.2-5.4); WHITE BLOOD COUNT 8.34 K/uL (4.8-10.8)
--- NOTE | 2016-09-17 07:10 | Nephrology Progress Note ---
Nephrology Progress Note Date of Service: Sep 17, 2016. Subjective 71 yo female with underlying malignancy undergoing radiation treatments who presented with lissette and developed hyponatremia. sodium levels have trended up nicely on low rate of normal saline. pt states that when her kidney was removed about 14 yrs ago, they told her to drink lots of water and she has done that since then. Objective Date Time Temp Pulse Resp B/P Pulse Ox O2 Delivery O2 Flow Rate FiO2 09/17/16 04:14 36.7 72 20 129/85 99 Nasal Cannula 2.0 09/17/16 00:00 Nasal Cannula 2.0 09/16/16 23:51 36.6 73 20 144/83 99 Room Air 09/16/16 20:06 36.5 82 18 149/88 100 2.0 09/16/16 19:43 Nasal Cannula 09/16/16 16:11 36.6 81 18 121/78 97 Room Air 09/16/16 16:00 Nasal Cannula 2.0 Humidified Oxygen 09/16/16 11:17 36.8 84 18 111/66 97 Nasal Cannula 2.0 09/16/16 08:00 99 Nasal Cannula 2.0 09/16/16 07:45 36.7 76 18 145/79 99 Nasal Cannula 2.0 Physical Exam: General-aaox3 Eyes-no scleral icterus ENT-mmm Neck-supple Lungs-cta Heart-rrr Abdomen-bs+ s/nt/nd Extremities-+2 edema in left leg Neuro-nonfocal Current Inpatient Medications Medications (Trade) Dose Ordered Sig/Benjamín Route Start Time Stop Time Status Last Admin Dose Admin Naloxone HCl (Narcan Inj) 0.1 mg Q5M PRN IV 09/11/16 14:00 10/11/16 13:59 Enalapril Maleate (Vasotec Tab) 10 mg QAM PO 09/12/16 08:00 10/12/16 08:59 09/16/16 09:15 10 MG Montelukast Sodium (Singulair Tab) 10 mg HS PO 09/11/16 21:00 10/11/16 20:59 09/16/16 20:42 10 MG Warfarin Sodium (Coumadin Tab) 5 mg DAILY@1600 PO 09/11/16 16:00 10/11/16 15:59 09/16/16 15:36 5 MG Senna/Docusate Sodium (Senokot S Tab) 2 tab BID PO 09/11/16 20:11 10/11/16 20:59 09/16/16 20:43 2 TAB Non-Formulary Medication (Non-Formulary Patient'S Own Med) 1 ea DAILY@1800 PO 09/11/16 18:00 10/06/16 18:01 09/16/16 18:04 1 EA Fentanyl (Duragesic Patch) 25 mcg Q72H TD 09/11/16 21:00 09/25/16 20:59 09/14/16 19:58 25 MCG Miscellaneous (Fentanyl Patch Remove & Waste) 1 ea Q3D N/A 09/11/16 21:00 10/11/16 20:59 09/14/16 20:15 1 EA Miscellaneous Information (Check Fentanyl Patch Placement) 1 ea QS N/A 09/12/16 00:00 10/12/16 00:00 09/16/16 23:29 1 EA Gabapentin (Neurontin Cap) 100 mg TID PO 09/11/16 20:11 10/11/16 20:59 09/16/16 20:43 100 MG Diclofenac Sodium (Voltaren 1% Top Gel) 1 appln TID PRN EXT 09/12/16 12:15 10/12/16 12:14 09/16/16 23:30 1 APPLN Enoxaparin Sodium (Lovenox Inj) 90 mg Q12@0000,1200 SC 09/13/16 00:00 10/13/16 00:00 09/16/16 23:30 90 MG Polyethylene (Miralax Powder Packet) 17 gm DAILY PO 09/13/16 08:00 10/13/16 07:59 09/16/16 09:13 17 GM Ondansetron HCl (Zofran Inj) 4 mg Q6H PRN IV 09/12/16 18:15 10/12/16 18:14 09/13/16 09:38 4 MG Hydromorphone HCl (Dilaudid Inj) 1 mg Q1H PRN IV 09/12/16 20:00 09/26/16 19:59 09/17/16 04:46 1 MG Oxycodone HCl 20 mg 20 mg Q12H PO 09/12/16 21:00 09/26/16 20:59 09/16/16 20:41 20 MG Sodium Chloride (Nss 1000ml) 1,000 ml @ 50 mls/hr Q20H IV 09/13/16 15:00 09/16/16 06:50 50 MLS/HR Hydromorphone HCl (Dilaudid Inj) 2 mg ONE PRN IV 09/14/16 12:45 09/28/16 12:44 09/16/16 08:11 2 MG Bisacodyl (Dulcolax Tab) 10 mg BID PO 09/14/16 20:00 10/14/16 19:59 09/16/16 20:42 10 MG Magnesium Hydroxide (Milk Of Magnesia Susp) 30 ml Q6H PRN PO 09/15/16 16:45 10/15/16 16:44 09/15/16 21:50 30 ML Lactulose (Chronulac Syrup) 30 gm TID PRN PO 09/15/16 17:00 10/15/16 16:59 09/16/16 09:13 30 GM Miscellaneous 1 ea 1 ea ONE PRN LA 09/16/16 19:00 09/17/16 18:59 Ceftriaxone Sodium/Dextrose (Rocephin Inj/ Dextrose Add-[place] 50ML) 50 ml @ 100 mls/hr DAILY@1999 IV 09/16/16 20:00 09/21/16 19:59 09/16/16 20:41 100 MLS/HR Last 24 Hours Test 09/16/16 19:10 09/17/16 06:39 Sodium Level 130 mmol/L Potassium Level 4.6 mmol/L Chloride Level 96 mmol/L Carbon Dioxide Level 26 mmol/L Anion Gap 8.0 mmol/L Blood Urea Nitrogen 15 mg/dl Creatinine 0.80 mg/dl Est Creatinine Clear Calc Drug Dose 70.8 ml/min Estimated GFR () 85.4 Estimated GFR (Non- 73.7 BUN/Creatinine Ratio 18.6 Random Glucose 126 mg/dl Calcium Level 8.8 mg/dl Assessment & Plan [id number] where creatinine worsened to 1.5 and has improved back to baseline. Hyponatremia-sodium levels dropped to 121 in setting of lissette. initially thought to have element of volume depletion. however feel pt may have small element of siadh as well and drinks a lot of water. would expect urine osm to be lower at below 150 given the hyponatremia. have placed pt on a fluid restriction and instructed her to decrease amount of water intake by two cups a day. will continue the low rate of normal saline with goal sodium of 130 or greater. does not appear volume depleted now and would expect sodium to be up to the mid 130s. likely drinking too much free water.
[2016-09-17] MEDS: SODIUM CHLORIDE 0.9% 1000ML 1,000 ML IV SCH (07:13)
[2016-09-17 07:23] LABS: BUN/CREATININE RATIO 18.3 (10-20); CALCIUM 8.7 mg/dl (8.5-10.1); CREATININE 0.75 mg/dl (0.60-1.20); POTASSIUM 4.7 mmol/L (3.5-5.1)
[2016-09-17] MEDS: HYDROmorphone INJ 2 MG/ML SYR/VIAL IV PRN (07:36)
[2016-09-17] MEDS: BISACODYL 5 MG TABEC PO SCH ×2 (08:57→20:02)
[2016-09-17] MEDS: POLYETHYLENE (MIRALAX) 17 GM PACK PO SCH (08:58)
[2016-09-17] MEDS: DOCUSATE SODIUM/SENNA 50/8.6MG TAB PO SCH ×2 (08:58→20:02)
[2016-09-17] MEDS: ENALAPRIL MALEATE 10 MG TAB PO SCH (08:59)
[2016-09-17] MEDS: GABAPENTIN 100 MG CAP PO SCH ×3 (09:08→20:01)
[2016-09-17] MEDS: FENTANYL 50 MCG/HR TDSY TD SCH (09:18)
[2016-09-17] MEDS: FENTANYL PATCH REMOVE & WASTE SCH (09:23)
[2016-09-17] MEDS: CHECK FENTANYL PATCH PLACEMENT SCH ×3 (09:24→23:11)
--- NOTE | 2016-09-17 09:30 | CONSULTATION REPORT ---
DATE OF CONSULTATION: 09/17/2016 CHIEF COMPLAINT: Worsening back and hip pain and metastatic renal cell carcinoma. HISTORY OF PRESENT ILLNESS: I saw 71-year-old Ms. Missy Hutchinson today at the [facility]. She has a history of stage IV renal cell carcinoma with pelvic metastasis, left lower extremity DVT and worsening back and hip pain, presenting to the [facility] Emergency Room on 09/11/2016. She recently started radiation therapy with improvement in her pain, but states that she continues to have pain in her left groin and hip radiating down in a sharp shooting character to her left leg and knee. She is having difficulty ambulating secondary to pain and has been utilizing fentanyl 25 mcg q. 72 hours, OxyContin 20 mg p.o. q. 12, gabapentin 100 mg p.o. t.i.d. and Dilaudid 6 mg IV over the last 24 hours. She reports improvement in her pain, but still rates it at about 6-9/10, worse with activity, better with lying still. She notes that her pain goal is 4/10. She denies bowel or bladder incontinence or any falls at this time. She does report some motor weakness over her left lower extremity, particularly with leg flexion and extension. PAST MEDICAL HISTORY: Significant for left lower extremity DVT; hypertension; osteoarthritis; osteoporosis; renal cell carcinoma, on chemo and radiation, secondary malignant bone metastasis. PAST SURGICAL HISTORY: Significant for tonsils and adenoid removal, left nephrectomy, left wrist surgery, cholecystectomy, appendectomy, history of left total hip arthroplasty, lumbar spinal surgery, hysterectomy and oophorectomy. FAMILY HISTORY: Noncontributory. SOCIAL HISTORY: She is a former tobacco user, smoking socially in the 1970s. Denies alcohol or illicit substance use and lives alone. MEDICATIONS AND ALLERGIES: Reviewed as per EMR. REVIEW OF SYSTEMS: She denies a 10-point review of system at this time. IMAGING STUDIES: A lumbar spine CT dated 09/11/2016 shows no acute fractures, moderate spinal stenosis at L2-3 and L3-4 with a large destructive mass over the left iliac wing. A pelvic CT dated 09/11/2016 shows no significant change in the 11 x 10 cm destructive mass within the left iliac wing, no pelvic fractures and no hematoma. PHYSICAL EXAMINATION: VITAL SIGNS: Height is 162 cm, weight 95.7 kilograms, BMI 36.2, blood pressure is 129/85, pulse 72, respirations 20, temperature 36.7 degree centigrade, 99% pulse oximetry on 2 liters nasal cannula. GENERAL: She appears her stated age of [age] years old, is awake, alert and oriented x3, appearing in no acute distress, lying in her bed. She does have some difficulty with sitting up due to pain. MUSCULOSKELETAL: She has tenderness over her left lower lumbar spine at the lumbosacral junction radiating into her hip. She has 5/5 strength in her right lower extremity globally. In the left lower extremity, she has 5/5 strength with dorsi and plantar flexion. I would rate her at 1-2+/5 over her quadriceps, hamstring, anterior tibialis and gastroc though it is difficult to assess secondary to patient's discomfort. She has a negative straight leg raise on the right, difficult to assess on the left secondary to patient's pain with minimal movement of the leg. She has intact sensation over bilateral lower extremities. Gait was not observed. She does have 2+ edema in her left leg. ASSESSMENT: 1. Intractable low back pain with left hip pain and known metastatic renal cell carcinoma. 2. Left lower extremity deep venous thrombosis. TREATMENT: 1. We will convert her OxyContin to fentanyl for a total dose of fentanyl 50 mcg q. 72 hours. 2. We will initiate Percocet 5/325 mg 1 p.o. q. 4 p.r.n. with IV hydromorphone as backup. 3. We will increase her gabapentin to 200 mg p.o. t.i.d. and initiate nortriptyline 10 mg p.o. at bedtime to further diminish her pain burden. 4. The above was discussed with the patient and risks and benefits were discussed. 5. We will stop back tomorrow to confirm efficacy of the above regimen. We would recommend continuation of hydromorphone prior to radiation therapy. Thank you very much for this consult.
[2016-09-17] MEDS: ENOXAPARIN 100 MG/1ML SYR SC SCH ×2 (11:51→23:12)
[2016-09-17 14:30] LABS: INR 1.9 (0.9-1.1); PROTHROMBIN TIME (PATIENT) 21.2 SECONDS (9.0-12.0)
[2016-09-17] MEDS: OXYCODONE/ACETAMINOPHEN 5-325 TAB PO PRN (16:05)
[2016-09-17] MEDS: WARFARIN SOD 5 MG TAB PO SCH (16:05)
--- NOTE | 2016-09-17 16:51 | Progress Note ---
Medicine Progress Note Date & Time of Visit: Sep 17, 2016 at 16:46. Subjective patient seen resting in bed states pain is under control (+) BM denies abdominal pain, nausea no chest pain, dyspnea, palpitations denies other symptoms Objective Last 8 Hrs Date Time Temp Pulse Resp B/P Pulse Ox O2 Delivery O2 Flow Rate FiO2 09/17/16 15:24 36.9 87 18 152/79 100 Nasal Cannula 2.0 09/17/16 12:01 36.6 78 16 139/83 99 Nasal Cannula 2.0 Humidified Air 09/17/16 10:02 Nasal Cannula 2.0 Humidified Air 09/17/16 09:38 36.6 79 16 168/111 96 Humidified Oxygen 2.0 Physical Exam: General- oriented x 3, not in distress, speaks in sentences with no effort Lungs- clear breath sounds b/l, no rales/wheeze Heart- normal rate, regular rhythm; no murmur Abdomen- normal bowel sounds, non distended, soft, nontender Extremities- left lower leg: (+) edema, no warmth, no tenderness right leg: essentially normal Neuro- alert, oriented x 3; no gross focal deficits Skin- warm & dry Laboratory Results: Last 24 Hours Test 09/16/16 19:10 09/17/16 06:39 09/17/16 10:45 09/17/16 13:50 Sodium Level 130 mmol/L 130 mmol/L Potassium Level 4.6 mmol/L 4.7 mmol/L Chloride Level 96 mmol/L 98 mmol/L Carbon Dioxide Level 26 mmol/L 24 mmol/L Anion Gap 8.0 mmol/L 8.0 mmol/L Blood Urea Nitrogen 15 mg/dl 14 mg/dl Creatinine 0.80 mg/dl 0.75 mg/dl Est Creatinine Clear Calc Drug Dose 70.8 ml/min 76.1 ml/min Estimated GFR () 85.4 92.3 Estimated GFR (Non- 73.7 79.6 BUN/Creatinine Ratio 18.6 18.3 Random Glucose 126 mg/dl 102 mg/dl Calcium Level 8.8 mg/dl 8.7 mg/dl White Blood Count 8.34 K/uL Red Blood Count 3.42 M/uL Hemoglobin 9.0 g/dL Hematocrit 28.3 % Mean Corpuscular Volume 82.7 fL Mean Corpuscular Hemoglobin 26.3 pg Mean Corpuscular Hemoglobin Concent 31.8 g/dl RDW Standard Deviation 56.7 fL RDW Coefficient of Variation 18.5 % Platelet Count 469 K/uL Mean Platelet Volume 8.2 fL Urine Osmolality 352 mOms/kg Prothrombin Time 21.2 SECONDS Prothromb Time International Ratio 1.9 Assessment & Plan 71 year old female with history of Metastatic Renal Cell CA... 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 - Fentanyl patch increased, Percocet PRN, increased Gabapentin, Nortriptyline added appreciate Pain management recommendations - Day 09/30 Radiation today ACUTE RENAL FAILURE, RESOLVED Likely pre renal secondary to volume depletion sec to inadequate PO intake, vomiting -Creatinine improved from 1.5 to 0.8 - continue IV NSS at 50cc/hr Lasix held HYPONATREMIA, LIKELY HYPOVOLEMIC - Na went down to 122, asymptomatic--> 129 repeat Na pending - on IV fluids oral fluid restriction appreciate Nephro SVC recommendations CONSTIPATION likely narcotic induced - Milk of Mg, Lactulose ordered continue Senokot S, Docusate, Miralax - given enema, (+) BM ANEMIA Hb 8.2 on presentation, need it to be > 10 as plan is for radiation rxs per discussion with Dr Villagran -Transfused 2 units of PRBCS on 09/12/16 - Hg 9.0 monitor METASTATIC RCC -Continue Sutent recently started by Dr. Villagran -Radiation oncology consulted LLE DVT Diagnosed by ultrasound 09/08/16 -Started on Lovenox and Coumadin 09/09/16 - INR 1.9 continue Coumadin + Lovenox - Continue Lovenox and Coumadin together for at least 5 days and until INR >2 for 2 days HYPERTENSION - Stable -Continue enalapril and furosemide LEUKOCYTOSIS - resolved - urine culture: (+) Klebsiella > 100k - Ceftriaxone day 2 x 3 days STAGE 1 PRESSURE ULCER LEFT BUTTOCK Present on arrival -Wound care nurse consulted DVT PROPHYLAXIS -On Lovenox and Coumadin CODE STATUS -Full code per discussion with the patient PA DRUG MONITORING -Database queried with no issues identified DISPOSITION Lives alone - will need fci placement PT/OT Follows with Dr. Gonzalez for primary care Current Inpatient Medications: Current Inpatient Medications Medications (Trade) Dose Ordered Sig/Benjamín Route Start Time Stop Time Status Last Admin Dose Admin Naloxone HCl (Narcan Inj) 0.1 mg Q5M PRN IV 09/11/16 14:00 10/11/16 13:59 Enalapril Maleate (Vasotec Tab) 10 mg QAM PO 09/12/16 08:00 10/12/16 08:59 09/17/16 08:59 10 MG Montelukast Sodium (Singulair Tab) 10 mg HS PO 09/11/16 21:00 10/11/16 20:59 09/16/16 20:42 10 MG Warfarin Sodium (Coumadin Tab) 5 mg DAILY@1600 PO 09/11/16 16:00 10/11/16 15:59 09/17/16 16:05 5 MG Senna/Docusate Sodium (Senokot S Tab) 2 tab BID PO 09/11/16 20:11 10/11/16 20:59 09/17/16 08:58 2 TAB Non-Formulary Medication (Non-Formulary Patient'S Own Med) 1 ea DAILY@1800 PO 09/11/16 18:00 10/06/16 18:01 09/16/16 18:04 1 EA Diclofenac Sodium (Voltaren 1% Top Gel) 1 appln TID PRN EXT 09/12/16 12:15 10/12/16 12:14 09/16/16 23:30 1 APPLN Enoxaparin Sodium (Lovenox Inj) 90 mg Q12@0000,1200 SC 09/13/16 00:00 10/13/16 00:00 09/17/16 11:51 90 MG Polyethylene (Miralax Powder Packet) 17 gm DAILY PO 09/13/16 08:00 10/13/16 07:59 09/17/16 08:58 17 GM Ondansetron HCl (Zofran Inj) 4 mg Q6H PRN IV 09/12/16 18:15 10/12/16 18:14 09/13/16 09:38 4 MG Hydromorphone HCl 1 mg 1 mg Q1H PRN IV 09/12/16 20:00 09/26/16 19:59 09/17/16 14:07 1 MG Sodium Chloride (Nss 1000ml) 1,000 ml @ 50 mls/hr Q20H IV 09/13/16 15:00 09/17/16 07:13 50 MLS/HR Hydromorphone HCl (Dilaudid Inj) 2 mg ONE PRN IV 09/14/16 12:45 09/28/16 12:44 09/17/16 07:36 2 MG Bisacodyl (Dulcolax Tab) 10 mg BID PO 09/14/16 20:00 10/14/16 19:59 09/17/16 08:57 10 MG Magnesium Hydroxide (Milk Of Magnesia Susp) 30 ml Q6H PRN PO 09/15/16 16:45 10/15/16 16:44 09/15/16 21:50 30 ML Lactulose (Chronulac Syrup) 30 gm TID PRN PO 09/15/16 17:00 10/15/16 16:59 09/16/16 09:13 30 GM Miscellaneous 1 ea 1 ea ONE PRN MT 09/16/16 19:00 09/17/16 18:59 Ceftriaxone Sodium/Dextrose (Rocephin Inj/ Dextrose Add-[place] 50ML) 50 ml @ 100 mls/hr DAILY@2000 IV 09/16/16 20:00 09/21/16 19:59 09/16/16 20:41 100 MLS/HR Gabapentin (Neurontin Cap) 200 mg TID PO 09/17/16 08:00 10/17/16 07:59 09/17/16 14:10 200 MG Fentanyl (Duragesic Patch) 50 mcg Q72H TD 09/17/16 08:00 10/01/16 07:59 09/17/16 09:18 50 MCG Miscellaneous (Fentanyl Patch Remove & Waste) 1 ea Q72H N/A 09/17/16 07:59 10/17/16 07:58 09/17/16 09:23 1 EA Miscellaneous Information (Check Fentanyl Patch Placement) 1 ea QS N/A 09/17/16 08:00 10/17/16 07:59 09/17/16 16:06 1 EA Oxycodone/ Acetaminophen (Percocet 5-325mg Tab) 1 tab Q4H PRN PO 09/17/16 08:00 10/01/16 07:59 09/17/16 16:05 1 TAB Nortriptyline HCl (Pamelor Cap) 10 mg HS PO 09/17/16 21:00 10/17/16 20:59
[2016-09-17] MEDS: DICLOFENAC SOD 1% GEL 100 GM TUBE EXT PRN ×2 (17:07→19:59)
[2016-09-17] MEDS: [UNRECOGNIZED DRUG - OTHER] PO SCH (17:58)
[2016-09-17] MEDS: CEFTRIAXONE SOD INJ 1 GM in DEXTROSE 5% ADD-VANTAGE 50ML 50 ML IV SCH (19:59)
[2016-09-17] MEDS: NORTRIPTYLINE HCL 10 MG CAP PO SCH (20:01)
[2016-09-17] MEDS: MONTELUKAST SOD 10 MG TAB PO SCH (20:01)
[2016-09-18] MEDS: SODIUM CHLORIDE 0.9% 1000ML 1,000 ML IV SCH ×2 (01:24→05:24)
[2016-09-18 03:51] VITALS: BP 149/79; PULSE 72; TEMP 36.6; O2SAT 99
[2016-09-18] MEDS: HYDROmorphone INJ 1 MG/ML SYR IV PRN ×4 (04:12→11:51)
[2016-09-18 06:32] LABS: INR 1.8 (0.9-1.1); PROTHROMBIN TIME (PATIENT) 19.9 SECONDS (9.0-12.0)
[2016-09-18 06:53] LABS: CALCIUM 8.8 mg/dl (8.5-10.1); CREATININE 0.67 mg/dl (0.60-1.20); POTASSIUM 4.5 mmol/L (3.5-5.1)
[2016-09-18 07:03] LABS: THYROID STIMULATING HORMONE 16.5 uIu/ml (0.300-4.500)
[2016-09-18] MEDS: POLYETHYLENE (MIRALAX) 17 GM PACK PO SCH (07:41)
[2016-09-18] MEDS: BISACODYL 5 MG TABEC PO SCH ×3 (07:41→21:18)
[2016-09-18] MEDS: DICLOFENAC SOD 1% GEL 100 GM TUBE EXT PRN ×3 (07:41→21:22)
[2016-09-18] MEDS: GABAPENTIN 100 MG CAP PO SCH ×3 (07:42→21:19)
[2016-09-18] MEDS: DOCUSATE SODIUM/SENNA 50/8.6MG TAB PO SCH ×3 (07:42→21:19)
[2016-09-18] MEDS: CHECK FENTANYL PATCH PLACEMENT SCH ×3 (07:42→15:33)
[2016-09-18] MEDS: ENALAPRIL MALEATE 10 MG TAB PO SCH (07:43)
--- NOTE | 2016-09-18 08:46 | Pain Management Progress Note ---
Pain Management Progress Note Date of Service Sep 18, 2016. Subjective I saw 71-year-old MsJoellen Hutchinson today at the [facility]. She has a history of stage IV renal cell carcinoma with pelvic metastasis, left lower extremity DVT and worsening back and hip pain, presenting to the [facility] Emergency Room on 09/11/2016. She recently started radiation therapy with improvement in her pain, but states that she continues to have pain in her left groin and hip radiating down in a sharp shooting character to her left leg and knee. She is having difficulty ambulating secondary to pain and has been utilizing fentanyl 50 mcg q. 72 hours, Precocet 5-325mg x1, gabapentin 200 mg p.o. t.i.d., nortriptylline 10mg x1, and Dilaudid 9 mg IV over the last 24 hours. Nursing reports she still has some painful times especially with movement of the LLE. Pain is rated it at about 4-6/10, worse with activity, better with lying still. Pain goal is 4/10. Pt was seen while she was in XRT so no physical exam was performed. No SE of narcotics noted per nursing Objective Vital Signs: Last Vital Signs Documentation Date Time Temp Pulse Resp B/P Pulse Ox O2 Delivery O2 Flow Rate FiO2 09/18/16 03:51 36.6 72 16 149/79 99 Nasal Cannula 2.0 Humidified Oxygen Laboratory (Last CBC): 09/17/16 06:39 Assessment 1. Intractable low back pain with left hip pain and known metastatic renal cell carcinoma. 2. Left lower extremity deep venous thrombosis. Recommendations 1. Increase fentanyl for a total dose of fentanyl 75 mcg q. 72 hours. 2. Encourage use Percocet 5/325 mg 1 p.o. q. 4 p.r.n. with IV hydromorphone only as backup. 3. Continue gabapentin to 200 mg p.o. t.i.d. and nortriptyline 10 mg p.o. at bedtime to further diminish her pain burden. 4. Decrease interval of IV hydromorphone to q4h. 5. Would recommend continuation of hydromorphone prior to radiation therapy. 6. Will followup on wednesday if still admitted, please call with any questions. [employer] Voice Recognition This chart was completed in part utilizing Dragon Dictation Voice Recognition Software. Random word insertions, pronoun errors, and incomplete sentences are an occasional consequence of this system due to software limitations and ambient noise. Any questions or concerns about the content, text or information contained within the body of this dictation should be directly addressed to the provider for clarification.
[2016-09-18] MEDS: OXYCODONE/ACETAMINOPHEN 5-325 TAB PO PRN ×4 (09:13→20:41)
[2016-09-18 09:24] VITALS: BP 140/84; PULSE 80; TEMP 36.8; O2SAT 99
[2016-09-18] MEDS ORDERED: FENTANYL 25 MCG/HR TDSY TD SCH (09:30)
[2016-09-18] MEDS: ENOXAPARIN 100 MG/1ML SYR SC SCH (11:54)
[2016-09-18 12:09] VITALS: BP 134/80; PULSE 88; TEMP 36.4; O2SAT 99
[2016-09-18 15:56] VITALS: PULSE 82; TEMP 36.4; O2SAT 95
--- NOTE | 2016-09-18 17:24 | Progress Note ---
Medicine Progress Note Date & Time of Visit: Sep 18, 2016 at 17:19. Subjective patient states she feels better than yesterday pain adequately controlled denies abdominal pain ,nausea, fever denies other symptoms Objective Last 8 Hrs Date Time Temp Pulse Resp B/P Pulse Ox O2 Delivery O2 Flow Rate FiO2 09/18/16 15:56 36.4 82 95 2.0 09/18/16 12:09 36.4 88 24 134/80 99 Nasal Cannula 2.0 09/18/16 09:30 Nasal Cannula 2.0 09/18/16 09:24 36.8 80 20 140/84 99 Nasal Cannula 2.0 Physical Exam: General- oriented x 3, not in distress, speaks in sentences with no effort Lungs- clear breath sounds bilaterally Heart- normal rate, regular rhythm; no murmur Abdomen- normal bowel sounds, non distended, soft, nontender Extremities- left lower leg: (+) edema improving, no warmth, no tenderness right leg: essentially normal Neuro- alert, oriented x 3; no gross focal deficits Skin- warm & dry Laboratory Results: Last 24 Hours Test 09/18/16 05:47 Prothrombin Time 19.9 SECONDS Prothromb Time International Ratio 1.8 Sodium Level 131 mmol/L Potassium Level 4.5 mmol/L Chloride Level 100 mmol/L Carbon Dioxide Level 24 mmol/L Anion Gap 7.0 mmol/L Blood Urea Nitrogen 16 mg/dl Creatinine 0.67 mg/dl Est Creatinine Clear Calc Drug Dose 85.9 ml/min Estimated GFR () 101.8 Estimated GFR (Non- 87.8 BUN/Creatinine Ratio 24.0 Random Glucose 111 mg/dl Calcium Level 8.8 mg/dl Thyroid Stimulating Hormone (TSH) 16.500 uIu/ml Assessment & Plan 71 year old female with history of Metastatic Renal Cell CA... INTRACTABLE LOW BACK / LEFT HIP PAIN In setting of PELVIC METASTASIS FROM STAGE IV RENAL CELL CARCINOMA -Work up - CT pelvis showed stable 11x 10 cm mass centered in left iliac wing; No acute pelvic hematoma ; CT L-spine- no fx or subluxation, multilevel spondylitic changes with moderate spinal stenosis at L2-3 and L3-4 levels, mild- mod spinal stenosis L4-5 -S/P IV Dilaudid [employer] --> Discontinued due to drowsiness/nausea/vomiting. - Fentanyl patch increased, Percocet PRN, increased Gabapentin, Nortriptyline added appreciate Pain management recommendations improving continue to titrate - Day 10/31 Radiation today ACUTE RENAL FAILURE, RESOLVED Likely pre renal secondary to volume depletion sec to inadequate PO intake, vomiting -Creatinine improved from 1.5 to 0.8 - continue IV NSS at 50cc/hr Lasix held HYPONATREMIA, LIKELY HYPOVOLEMIC - Na went down to 122, asymptomatic--> 131 - on IV fluids oral fluid restriction appreciate Nephro SVC recommendations CONSTIPATION likely narcotic induced - Milk of Mg, Lactulose ordered continue Senokot S, Docusate, Miralax - given enema, (+) BM ANEMIA Hb 8.2 on presentation, need it to be > 10 as plan is for radiation rxs per discussion with Dr Villagran -Transfused 2 units of PRBCS on 09/12/16 - Hg 9.0, stable monitor METASTATIC RCC -Continue Sutent recently started by Dr. Villagran -Radiation oncology consulted LLE DVT Diagnosed by ultrasound 09/08/16 - Started on Lovenox and Coumadin 09/09/16 - INR 1.8 increase Coumadin + Lovenox - Continue Lovenox and Coumadin together for at least 5 days and until INR >2 for 2 days HYPERTENSION - Stable -Continue enalapril LEUKOCYTOSIS, UTI - urine culture: (+) Klebsiella > 100k - Ceftriaxone day 2, changed to Cefuroxime STAGE 1 PRESSURE ULCER LEFT BUTTOCK Present on arrival -Wound care nurse consulted DVT PROPHYLAXIS -On Lovenox and Coumadin CODE STATUS -Full code per discussion with the patient PA DRUG MONITORING -Database queried with no issues identified DISPOSITION Lives alone - will need custodial placement PT/OT Follows with Dr. Gonzalez for primary care Current Inpatient Medications: Current Inpatient Medications Medications (Trade) Dose Ordered Sig/Benjamín Route Start Time Stop Time Status Last Admin Dose Admin Naloxone HCl (Narcan Inj) 0.1 mg Q5M PRN IV 09/11/16 14:00 10/11/16 13:59 Enalapril Maleate (Vasotec Tab) 10 mg QAM PO 09/12/16 08:00 10/12/16 08:59 09/18/16 07:43 10 MG Montelukast Sodium (Singulair Tab) 10 mg HS PO 09/11/16 21:00 10/11/16 20:59 3/2/17 20:01 10 MG Warfarin Sodium (Coumadin Tab) 5 mg DAILY@1600 PO 09/11/16 16:00 10/11/16 15:59 09/17/16 16:05 5 MG Senna/Docusate Sodium (Senokot S Tab) 2 tab BID PO 09/11/16 20:11 10/11/16 20:59 09/18/16 07:42 2 TAB Non-Formulary Medication (Non-Formulary Patient'S Own Med) 1 ea DAILY@1800 PO 09/11/16 18:00 10/06/16 18:01 09/17/16 17:58 1 EA Diclofenac Sodium (Voltaren 1% Top Gel) 1 appln TID PRN EXT 09/12/16 12:15 10/12/16 12:14 09/18/16 13:13 1 APPLN Enoxaparin Sodium (Lovenox Inj) 90 mg Q12@0000,1200 SC 09/13/16 00:00 10/13/16 00:00 09/18/16 11:54 90 MG Polyethylene (Miralax Powder Packet) 17 gm DAILY PO 09/13/16 08:00 10/13/16 07:59 09/18/16 07:41 17 GM Ondansetron HCl 4 mg 4 mg Q6H PRN IV 09/12/16 18:15 10/12/16 18:14 09/13/16 09:38 4 MG Sodium Chloride (Nss 1000ml) 1,000 ml @ 50 mls/hr Q20H IV 09/13/16 15:00 09/18/16 05:24 50 MLS/HR Hydromorphone HCl (Dilaudid Inj) 2 mg ONE PRN IV 09/14/16 12:45 09/28/16 12:44 09/17/16 07:36 2 MG Bisacodyl (Dulcolax Tab) 10 mg BID PO 09/14/16 20:00 10/14/16 19:59 09/18/16 07:41 10 MG Magnesium Hydroxide (Milk Of Magnesia Susp) 30 ml Q6H PRN PO 09/15/16 16:45 10/15/16 16:44 09/15/16 21:50 30 ML Lactulose 30 gm 30 gm TID PRN PO 09/15/16 17:00 10/15/16 16:59 09/16/16 09:13 30 GM Ceftriaxone Sodium/Dextrose (Rocephin Inj/ Dextrose Add-[place] 50ML) 50 ml @ 100 mls/hr DAILY@2000 IV 09/16/16 20:00 09/21/16 19:59 09/17/16 19:59 100 MLS/HR Gabapentin (Neurontin Cap) 200 mg TID PO 09/17/16 08:00 10/17/16 07:59 09/18/16 11:57 200 MG Fentanyl (Duragesic Patch) 50 mcg Q72H TD 09/17/16 08:00 10/01/16 07:59 09/17/16 09:18 50 MCG Miscellaneous (Fentanyl Patch Remove & Waste) 1 ea Q72H N/A 09/17/16 07:59 10/17/16 07:58 09/17/16 09:23 1 EA Miscellaneous Information (Check Fentanyl Patch Placement) 1 ea QS N/A 09/17/16 08:00 10/17/16 07:59 09/18/16 15:33 1 EA Oxycodone/ Acetaminophen (Percocet 5-325mg Tab) 1 tab Q4H PRN PO 09/17/16 08:00 10/01/16 07:59 09/18/16 13:12 1 TAB Nortriptyline HCl (Pamelor Cap) 10 mg HS PO 09/17/16 21:00 10/17/16 20:59 09/17/16 20:01 10 MG Hydromorphone HCl (Dilaudid Inj) 1 mg Q4H PRN IV 09/18/16 12:00 10/02/16 11:59 09/18/16 11:51 1 MG Fentanyl (Duragesic Patch) 25 mcg Q3D@0900 TD 09/18/16 09:30 10/02/16 09:29 09/18/16 09:12 25 MCG Miscellaneous (Fentanyl Patch Remove & Waste) 1 ea Q3D@0859 N/A 09/21/16 08:59 10/21/16 08:58 Miscellaneous Information (Check Fentanyl Patch Placement) 1 ea QS N/A 09/18/16 16:00 10/18/16 15:59 09/18/16 15:33 1 EA
[2016-09-18] MEDS ORDERED: WARFARIN SOD 7.5 MG TAB PO ONE (17:45)
[2016-09-18] MEDS: [UNRECOGNIZED DRUG - OTHER] PO SCH (17:50)
[2016-09-18 21:15] VITALS: BP 147/85; PULSE 79; TEMP 36.7; O2SAT 99
[2016-09-18] MEDS: MONTELUKAST SOD 10 MG TAB PO SCH (21:18)
[2016-09-18] MEDS: NORTRIPTYLINE HCL 10 MG CAP PO SCH (21:20)
[2016-09-18] MEDS: CEFUROXIME AXETIL 250 MG TAB PO SCH (21:24)
[2016-09-19] MEDS: SODIUM CHLORIDE 0.9% 1000ML 1,000 ML IV SCH (00:32)
[2016-09-19] MEDS: ENOXAPARIN 100 MG/1ML SYR SC SCH ×2 (00:32→12:29)
[2016-09-19] MEDS: OXYCODONE/ACETAMINOPHEN 5-325 TAB PO PRN ×5 (00:37→18:19)
[2016-09-19] MEDS: HYDROmorphone INJ 1 MG/ML SYR IV PRN ×5 (01:41→20:35)
[2016-09-19 03:51] VITALS: BP 158/99; PULSE 65; TEMP 36.5; O2SAT 100
[2016-09-19 05:42] LABS: HEMATOCRIT 29.6 % (37-47); MEAN CORPUSCULAR HEMOGLOBIN 26.3 pg (25-34); MEAN CORPUSCULAR HGB CONC 32.1 g/dl (32-36); PLATELET COUNT 479 K/uL (130-400); RED BLOOD COUNT 3.61 M/uL (4.2-5.4); WHITE BLOOD COUNT 7.68 K/uL (4.8-10.8)
[2016-09-19 05:51] LABS: INR 1.8 (0.9-1.1); PROTHROMBIN TIME (PATIENT) 19.7 SECONDS (9.0-12.0)
[2016-09-19 06:08] LABS: BUN/CREATININE RATIO 19.8 (10-20); CALCIUM 8.6 mg/dl (8.5-10.1); CREATININE 0.63 mg/dl (0.60-1.20); POTASSIUM 4.1 mmol/L (3.5-5.1)
[2016-09-19 07:50] VITALS: BP 148/85; PULSE 70; TEMP 36.4; O2SAT 100
[2016-09-19] MEDS: DOCUSATE SODIUM/SENNA 50/8.6MG TAB PO SCH ×2 (08:00→19:38)
[2016-09-19] MEDS: POLYETHYLENE (MIRALAX) 17 GM PACK PO SCH (08:00)
[2016-09-19] MEDS: DICLOFENAC SOD 1% GEL 100 GM TUBE EXT PRN ×2 (08:07→16:00)
[2016-09-19] MEDS: ENALAPRIL MALEATE 10 MG TAB PO SCH (08:09)
[2016-09-19] MEDS: BISACODYL 5 MG TABEC PO SCH ×2 (08:09→19:38)
[2016-09-19] MEDS: GABAPENTIN 100 MG CAP PO SCH ×3 (08:09→19:39)
[2016-09-19] MEDS: CHECK FENTANYL PATCH PLACEMENT SCH ×6 (08:10→15:53)
[2016-09-19] MEDS: CEFUROXIME AXETIL 250 MG TAB PO SCH ×2 (08:42→19:39)
[2016-09-19 15:54] VITALS: BP 136/84; PULSE 75; TEMP 36.4; O2SAT 97
[2016-09-19] MEDS: WARFARIN SOD 6 MG TAB PO SCH (16:00)
[2016-09-19] MEDS: [UNRECOGNIZED DRUG - OTHER] PO SCH (17:20)
[2016-09-19] MEDS: NORTRIPTYLINE HCL 10 MG CAP PO SCH (19:39)
[2016-09-19] MEDS: MONTELUKAST SOD 10 MG TAB PO SCH (19:39)
--- NOTE | 2016-09-19 19:43 | Progress Note ---
Medicine Progress Note Date & Time of Visit: Sep 19, 2016 at 19:38. Subjective states her pain is generally well controlled today (+) BMs denies dsypnea, chest pain, palpitations no other symptoms Objective Last 8 Hrs Date Time Temp Pulse Resp B/P Pulse Ox O2 Delivery O2 Flow Rate FiO2 09/19/16 16:11 Room Air 09/19/16 15:54 36.4 75 20 136/84 97 Room Air Physical Exam: General- oriented x 3, not in distress, speaks in sentences with no effort Lungs- clear breath sounds bilaterally, no rales or wheezes Heart- normal rate, regular rhythm; no murmur Abdomen- normal bowel sounds, non distended, soft, nontender Extremities- left lower leg: (+) edema improving, no warmth, no tenderness right leg: essentially normal Neuro- alert, oriented x 3; no gross focal deficits Skin- warm & dry Laboratory Results: Last 24 Hours Test 09/19/16 05:33 White Blood Count 7.68 K/uL Red Blood Count 3.61 M/uL Hemoglobin 9.5 g/dL Hematocrit 29.6 % Mean Corpuscular Volume 82.0 fL Mean Corpuscular Hemoglobin 26.3 pg Mean Corpuscular Hemoglobin Concent 32.1 g/dl RDW Standard Deviation 56.1 fL RDW Coefficient of Variation 18.6 % Platelet Count 479 K/uL Mean Platelet Volume 8.0 fL Prothrombin Time 19.7 SECONDS Prothromb Time International Ratio 1.8 Sodium Level 135 mmol/L Potassium Level 4.1 mmol/L Chloride Level 101 mmol/L Carbon Dioxide Level 24 mmol/L Anion Gap 10.0 mmol/L Blood Urea Nitrogen 13 mg/dl Creatinine 0.63 mg/dl Est Creatinine Clear Calc Drug Dose 91.4 ml/min Estimated GFR () 103.9 Estimated GFR (Non- 89.6 BUN/Creatinine Ratio 19.8 Random Glucose 104 mg/dl Calcium Level 8.6 mg/dl Assessment & Plan 71 year old female with history of Metastatic Renal Cell CA... INTRACTABLE LOW BACK / LEFT HIP PAIN In setting of PELVIC METASTASIS FROM STAGE IV RENAL CELL CARCINOMA -Work up - CT pelvis showed stable 11x 10 cm mass centered in left iliac wing; No acute pelvic hematoma ; CT L-spine- no fx or subluxation, multilevel spondylitic changes with moderate spinal stenosis at L2-3 and L3-4 levels, mild- mod spinal stenosis L4-5 -S/P IV Dilaudid [place] --> Discontinued due to drowsiness/nausea/vomiting. - Fentanyl patch increased, Percocet PRN, increased Gabapentin, Nortriptyline added appreciate Pain management recommendations improving continue to titrate - Day 10/31 Radiation so far -- continue to monitor pain control ACUTE RENAL FAILURE, RESOLVED Likely pre renal secondary to volume depletion sec to inadequate PO intake, vomiting -Creatinine improved from 1.5 to 0.8 - HOLD IV fluids today Lasix held HYPONATREMIA, LIKELY HYPOVOLEMIC - Na went down to 122, asymptomatic--> 135 -- HOLD oral fluids oral fluid restriction appreciate Nephro SVC recommendations CONSTIPATION likely narcotic induced - Milk of Mg, Lactulose ordered continue Senokot S, Docusate, Miralax - given enema, (+) BM ANEMIA Hb 8.2 on presentation, need it to be > 10 as plan is for radiation rxs per discussion with Dr Villagran -Transfused 2 units of PRBCS on 09/12/16 - Hg 9.0, stable monitor METASTATIC RCC -Continue Sutent recently started by Dr. Villagran -Radiation oncology consulted LLE DVT Diagnosed by ultrasound 09/08/16 - Started on Lovenox and Coumadin 09/09/16 - INR 1.8 increase Coumadin + Lovenox - Continue Lovenox and Coumadin together for at least 5 days and until INR >2 for 2 days HYPERTENSION - Stable -Continue enalapril LEUKOCYTOSIS, UTI - urine culture: (+) Klebsiella > 100k - Ceftriaxone day 2, changed to Cefuroxime STAGE 1 PRESSURE ULCER LEFT BUTTOCK Present on arrival -Wound care nurse consulted DVT PROPHYLAXIS -On Lovenox and Coumadin CODE STATUS -Full code per discussion with the patient PA DRUG MONITORING -Database queried with no issues identified DISPOSITION Lives alone - will need half-way placement PT/OT Follows with Dr. Gonzalez for primary care Current Inpatient Medications: Current Inpatient Medications Medications (Trade) Dose Ordered Sig/Benjamín Route Start Time Stop Time Status Last Admin Dose Admin Naloxone HCl (Narcan Inj) 0.1 mg Q5M PRN IV 09/11/16 14:00 10/11/16 13:59 Enalapril Maleate (Vasotec Tab) 10 mg QAM PO 09/12/16 08:00 10/12/16 08:59 09/19/16 08:09 10 MG Montelukast Sodium (Singulair Tab) 10 mg HS PO 09/11/16 21:00 10/11/16 20:59 09/18/16 21:18 10 MG Senna/Docusate Sodium (Senokot S Tab) 2 tab BID PO 09/11/16 20:11 10/11/16 20:59 09/18/16 07:42 2 TAB Non-Formulary Medication (Non-Formulary Patient'S Own Med) 1 ea DAILY@1800 PO 09/11/16 18:00 10/06/16 18:01 09/19/16 17:20 1 EA Diclofenac Sodium (Voltaren 1% Top Gel) 1 appln TID PRN EXT 09/12/16 12:15 10/12/16 12:14 09/19/16 16:00 1 APPLN Enoxaparin Sodium (Lovenox Inj) 90 mg Q12@0000,1200 SC 09/13/16 00:00 10/13/16 00:00 09/19/16 12:29 90 MG Polyethylene (Miralax Powder Packet) 17 gm DAILY PO 09/13/16 08:00 10/13/16 07:59 09/18/16 07:41 17 GM Ondansetron HCl (Zofran Inj) 4 mg Q6H PRN IV 09/12/16 18:15 10/12/16 18:14 09/13/16 09:38 4 MG Hydromorphone HCl (Dilaudid Inj) 2 mg ONE PRN IV 09/14/16 12:45 09/28/16 12:44 09/17/16 07:36 2 MG Bisacodyl (Dulcolax Tab) 10 mg BID PO 09/14/16 20:00 10/14/16 19:59 09/19/16 08:09 10 MG Magnesium Hydroxide (Milk Of Magnesia Susp) 30 ml Q6H PRN PO 09/15/16 16:45 10/15/16 16:44 09/15/16 21:50 30 ML Lactulose (Chronulac Syrup) 30 gm TID PRN PO 09/15/16 17:00 10/15/16 16:59 09/16/16 09:13 30 GM Gabapentin (Neurontin Cap) 200 mg TID PO 09/17/16 08:00 10/17/16 07:59 09/19/16 12:29 200 MG Fentanyl (Duragesic Patch) 50 mcg Q72H TD 09/17/16 08:00 10/01/16 07:59 09/17/16 09:18 50 MCG Miscellaneous (Fentanyl Patch Remove & Waste) 1 ea Q72H N/A 09/17/16 07:59 10/17/16 07:58 09/17/16 09:23 1 EA Miscellaneous Information (Check Fentanyl Patch Placement) 1 ea QS N/A 09/17/16 08:00 10/17/16 07:59 09/19/16 15:53 1 EA Oxycodone/ Acetaminophen (Percocet 5-325mg Tab) 1 tab Q4H PRN PO 09/17/16 08:00 10/01/16 07:59 09/19/16 18:19 1 TAB Nortriptyline HCl (Pamelor Cap) 10 mg HS PO 09/17/16 21:00 10/17/16 20:59 09/18/16 21:20 10 MG Hydromorphone HCl (Dilaudid Inj) 1 mg Q4H PRN IV 09/18/16 12:00 10/02/16 11:59 09/19/16 17:09 1 MG Fentanyl (Duragesic Patch) 25 mcg Q3D@0900 TD 09/18/16 09:30 10/02/16 09:29 09/18/16 09:12 25 MCG Miscellaneous (Fentanyl Patch Remove & Waste) 1 ea Q3D@0859 N/A 09/21/16 08:59 10/21/16 08:58 Miscellaneous Information (Check Fentanyl Patch Placement) 1 ea QS N/A 09/18/16 16:00 10/18/16 15:59 09/19/16 15:53 1 EA Cefuroxime Axetil (Ceftin Tab) 250 mg BID PO 09/18/16 20:00 09/28/16 19:59 09/19/16 08:42 250 MG Warfarin Sodium (Coumadin Tab) 6 mg DAILY@16 PO 09/19/16 16:00 10/19/16 15:59 09/19/16 16:00 6 MG
[2016-09-19 20:28] VITALS: BP 146/83; PULSE 77; TEMP 36.3; O2SAT 97
[2016-09-20 00:03] VITALS: BP 143/71; PULSE 75; TEMP 36.5; O2SAT 97
[2016-09-20] MEDS: OXYCODONE/ACETAMINOPHEN 5-325 TAB PO PRN ×7 (00:06→21:32)
[2016-09-20] MEDS: ENOXAPARIN 100 MG/1ML SYR SC SCH ×3 (00:15→23:20)
[2016-09-20] MEDS: CHECK FENTANYL PATCH PLACEMENT SCH ×6 (00:15→23:21)
[2016-09-20 03:29] VITALS: BP 147/88; PULSE 73; TEMP 36.5; O2SAT 98
[2016-09-20] MEDS: HYDROmorphone INJ 1 MG/ML SYR IV PRN ×2 (05:43→09:51)
[2016-09-20 06:01] LABS: HEMATOCRIT 28.8 % (37-47); MEAN CELL VOLUME 82.5 fL (80-100); MEAN CORPUSCULAR HEMOGLOBIN 26.4 pg (25-34); MEAN CORPUSCULAR HGB CONC 31.9 g/dl (32-36); MEAN PLATELET VOLUME 8.2 fL (7.4-10.4); PLATELET COUNT 489 K/uL (130-400); RED BLOOD COUNT 3.49 M/uL (4.2-5.4); WHITE BLOOD COUNT 6.89 K/uL (4.8-10.8)
[2016-09-20 06:11] LABS: INR 2.2 (0.9-1.1)
[2016-09-20 06:36] LABS: BUN/CREATININE RATIO 17.4 (10-20); CALCIUM 8.7 mg/dl (8.5-10.1); CREATININE 0.65 mg/dl (0.60-1.20); POTASSIUM 4.4 mmol/L (3.5-5.1)
[2016-09-20 06:47] LABS: THYROID STIMULATING HORMONE 22.1 uIu/ml (0.300-4.500)
[2016-09-20] MEDS: GABAPENTIN 100 MG CAP PO SCH ×3 (08:57→21:31)
[2016-09-20] MEDS: ENALAPRIL MALEATE 10 MG TAB PO SCH (08:58)
[2016-09-20] MEDS: CEFUROXIME AXETIL 250 MG TAB PO SCH (08:58)
[2016-09-20] MEDS: BISACODYL 5 MG TABEC PO SCH ×2 (08:58→20:00)
[2016-09-20] MEDS: DICLOFENAC SOD 1% GEL 100 GM TUBE EXT PRN (08:58)
[2016-09-20] MEDS: DOCUSATE SODIUM/SENNA 50/8.6MG TAB PO SCH (08:59)
[2016-09-20] MEDS: POLYETHYLENE (MIRALAX) 17 GM PACK PO SCH (08:59)
[2016-09-20] MEDS ORDERED: FENTANYL PATCH REMOVE & WASTE SCH (09:29)
[2016-09-20] MEDS: FENTANYL 50 MCG/HR TDSY TD SCH (09:55)
[2016-09-20] MEDS: FENTANYL 25 MCG/HR TDSY TD SCH ×2 (09:55→10:00)
[2016-09-20] MEDS: FENTANYL PATCH REMOVE & WASTE SCH (09:56)
[2016-09-20] MEDS: FENTANYL 100 MCG/HR TDSY TD SCH (10:55)
[2016-09-20] MEDS ORDERED: FENTANYL PATCH REMOVE & WASTE ONE (11:00)
[2016-09-20] MEDS ORDERED: LEVOTHYROXINE 50 MCG TAB PO ONE (13:30)
[2016-09-20] MEDS: WARFARIN SOD 6 MG TAB PO SCH (16:55)
[2016-09-20] MEDS: [UNRECOGNIZED DRUG - OTHER] PO SCH (17:53)
[2016-09-20 17:54] VITALS: BP 137/81; PULSE 84; TEMP 36.8; O2SAT 97
--- NOTE | 2016-09-20 19:02 | Progress Note ---
Medicine Progress Note Date & Time of Visit: Sep 20, 2016 at 12:01. Subjective seen with daughter at bedside reports increased pain today, worse with movement denies dyspnea, chest pain no bleeding denies other symptoms Objective Physical Exam: General- oriented x 3, not in distress, speaks in sentences with no effort Lungs- clear breath sounds bilaterally, no rales Heart- normal rate, regular rhythm; no murmur Abdomen- normal bowel sounds, non distended, soft, nontender Extremities- left lower leg: (+) edema improving, no warmth, no tenderness right leg: essentially normal Neuro- alert, oriented x 3; no gross focal deficits Skin- warm & dry Laboratory Results: Last 24 Hours Test 09/20/16 05:36 White Blood Count 6.89 K/uL Red Blood Count 3.49 M/uL Hemoglobin 9.2 g/dL Hematocrit 28.8 % Mean Corpuscular Volume 82.5 fL Mean Corpuscular Hemoglobin 26.4 pg Mean Corpuscular Hemoglobin Concent 31.9 g/dl RDW Standard Deviation 57.3 fL RDW Coefficient of Variation 18.9 % Platelet Count 489 K/uL Mean Platelet Volume 8.2 fL Prothrombin Time 24.0 SECONDS Prothromb Time International Ratio 2.2 Sodium Level 135 mmol/L Potassium Level 4.4 mmol/L Chloride Level 102 mmol/L Carbon Dioxide Level 23 mmol/L Anion Gap 10.0 mmol/L Blood Urea Nitrogen 11 mg/dl Creatinine 0.65 mg/dl Est Creatinine Clear Calc Drug Dose 89.3 ml/min Estimated GFR () 102.8 Estimated GFR (Non- 88.7 BUN/Creatinine Ratio 17.4 Random Glucose 98 mg/dl Calcium Level 8.7 mg/dl Thyroid Stimulating Hormone (TSH) 22.100 uIu/ml Free Thyroxine 0.51 ng/dl Assessment & Plan 71 year old female with history of Metastatic Renal Cell CA... 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 - pain worse today - increase Fentanyl to 100 daily increase Percocet to 1-2 tabs q4h continue IV Dilaudid PRN, Gabapentin, Nortriptyline appreciate Pain management recommendations - Day 10/31 Radiation so far ACUTE RENAL FAILURE, RESOLVED Likely pre renal secondary to volume depletion sec to inadequate PO intake, vomiting -Creatinine improved from 1.5 to 0.8 IV fluids discontinued Lasix held for now HYPONATREMIA, LIKELY HYPOVOLEMIC - Na went down to 122, asymptomatic--> 135 - remains 135 off IV NSS oral fluid restriction appreciate Nephro SVC recommendations - monitor CONSTIPATION, Resolved likely narcotic induced - continue bowel regimen ANEMIA Hb 8.2 on presentation, need it to be > 10 as plan is for radiation rxs per discussion with Dr Villagran -Transfused 2 units of PRBCS on 09/12/16 - Hg 9.0, stable monitor METASTATIC RCC -Continue Sutent recently started by Dr. Villagran -Radiation oncology consulted LLE DVT Diagnosed by ultrasound 09/08/16 - Started on Lovenox and Coumadin 09/09/16 - INR 2.2 continue Coumadin + Lovenox until tomorrow (overlap therapy for 2 days while INR therapeutic) HYPERTENSION - Stable -Continue enalapril LEUKOCYTOSIS, UTI - urine culture: (+) Klebsiella > 100k - Ceftriaxone day 2, changed to Cefuroxime (completed 3 days antibiotics) STAGE 1 PRESSURE ULCER LEFT BUTTOCK Present on arrival -Wound care nurse consulted DVT PROPHYLAXIS -On Lovenox and Coumadin CODE STATUS -Full code per discussion with the patient PA DRUG MONITORING -Database queried with no issues identified DISPOSITION Lives alone - will need [facility] placement PT/OT Follows with Dr. Gonzalez for primary care Current Inpatient Medications: Current Inpatient Medications Medications (Trade) Dose Ordered Sig/Benjamín Route Start Time Stop Time Status Last Admin Dose Admin Naloxone HCl (Narcan Inj) 0.1 mg Q5M PRN IV 09/11/16 14:00 10/11/16 13:59 Enalapril Maleate (Vasotec Tab) 10 mg QAM PO 09/12/16 08:00 10/12/16 08:59 09/20/16 08:58 10 MG Montelukast Sodium (Singulair Tab) 10 mg HS PO 09/11/16 21:00 10/11/16 20:59 09/19/16 19:39 10 MG Senna/Docusate Sodium (Senokot S Tab) 2 tab BID PO 09/11/16 20:11 10/11/16 20:59 09/19/16 19:38 2 TAB Non-Formulary Medication (Non-Formulary Patient'S Own Med) 1 ea DAILY@1800 PO 09/11/16 18:00 10/06/16 18:01 09/19/16 17:20 1 EA Diclofenac Sodium (Voltaren 1% Top Gel) 1 appln TID PRN EXT 09/12/16 12:15 10/12/16 12:14 09/20/16 08:58 1 APPLN Enoxaparin Sodium (Lovenox Inj) 90 mg Q12@0000,1200 SC 09/13/16 00:00 10/13/16 00:00 09/20/16 00:15 90 MG Polyethylene (Miralax Powder Packet) 17 gm DAILY PO 09/13/16 08:00 10/13/16 07:59 09/18/16 07:41 17 GM Ondansetron HCl (Zofran Inj) 4 mg Q6H PRN IV 09/12/16 18:15 10/12/16 18:14 09/13/16 09:38 4 MG Hydromorphone HCl (Dilaudid Inj) 2 mg ONE PRN IV 09/14/16 12:45 09/28/16 12:44 09/17/16 07:36 2 MG Bisacodyl (Dulcolax Tab) 10 mg BID PO 09/14/16 20:00 10/14/16 19:59 09/20/16 08:58 10 MG Magnesium Hydroxide (Milk Of Magnesia Susp) 30 ml Q6H PRN PO 09/15/16 16:45 10/15/16 16:44 09/15/16 21:50 30 ML Lactulose (Chronulac Syrup) 30 gm TID PRN PO 09/15/16 17:00 10/15/16 16:59 09/16/16 09:13 30 GM Gabapentin (Neurontin Cap) 200 mg TID PO 09/17/16 08:00 10/17/16 07:59 09/20/16 08:57 200 MG Nortriptyline HCl (Pamelor Cap) 10 mg HS PO 09/17/16 21:00 10/17/16 20:59 09/19/16 19:39 10 MG Hydromorphone HCl (Dilaudid Inj) 1 mg Q4H PRN IV 09/18/16 12:00 10/02/16 11:59 09/20/16 09:51 1 MG Cefuroxime Axetil (Ceftin Tab) 250 mg BID PO 09/18/16 20:00 09/28/16 19:59 09/20/16 08:58 250 MG Warfarin Sodium (Coumadin Tab) 6 mg DAILY@16 PO 09/19/16 16:00 10/19/16 15:59 09/19/16 16:00 6 MG Oxycodone/ Acetaminophen (Percocet 5-325mg Tab) `1-2 tabs for pain 1 tab ... Q4H PRN PO 09/20/16 12:00 10/04/16 11:59 Fentanyl (Duragesic Patch) 100 mcg Q72H TD 09/20/16 11:00 10/04/16 10:59 09/20/16 10:55 100 MCG Miscellaneous (Fentanyl Patch Remove & Waste) 1 ea Q3D N/A 09/23/16 11:00 10/23/16 10:59 Miscellaneous Information (Check Fentanyl Patch Placement) 1 ea QS N/A 09/20/16 16:00 10/20/16 15:59
[2016-09-20 20:15] VITALS: BP 120/79; PULSE 78; TEMP 36.6; O2SAT 96
[2016-09-20] MEDS: MONTELUKAST SOD 10 MG TAB PO SCH (21:31)
[2016-09-20] MEDS: NORTRIPTYLINE HCL 10 MG CAP PO SCH (21:32)
[2016-09-21] VITALS (9 sets, daily range): BP systolic 133–173; BP diastolic 79–94; PULSE 69–86; TEMP 36.2–37; O2SAT 94–98
[2016-09-21] MEDS: DICLOFENAC SOD 1% GEL 100 GM TUBE EXT PRN (04:33)
[2016-09-21] MEDS: OXYCODONE/ACETAMINOPHEN 5-325 TAB PO PRN (04:34)
[2016-09-21] MEDS: HYDROmorphone INJ 1 MG/ML SYR IV PRN (05:04)
[2016-09-21] MEDS: LEVOTHYROXINE 50 MCG TAB PO SCH (05:06)
[2016-09-21] MEDS: HYDROmorphone INJ 2 MG/ML SYR/VIAL IV PRN (07:48)
[2016-09-21 08:00] LABS: INR 2.8 (0.9-1.1); PROTHROMBIN TIME (PATIENT) 31.4 SECONDS (9.0-12.0)
[2016-09-21] MEDS: CHECK FENTANYL PATCH PLACEMENT SCH ×2 (08:00→16:06)
[2016-09-21] MEDS: POLYETHYLENE (MIRALAX) 17 GM PACK PO SCH (08:00)
[2016-09-21 08:17] LABS: BUN/CREATININE RATIO 14.5 (10-20); CREATININE 0.73 mg/dl (0.60-1.20); POTASSIUM 4.7 mmol/L (3.5-5.1)
[2016-09-21] MEDS ORDERED: FENTANYL PATCH REMOVE & WASTE SCH (08:59)
[2016-09-21] MEDS: GABAPENTIN 100 MG CAP PO SCH (09:16)
[2016-09-21] MEDS: ENALAPRIL MALEATE 10 MG TAB PO SCH (09:16)
[2016-09-21] MEDS: BISACODYL 5 MG TABEC PO SCH ×2 (09:16→19:38)
[2016-09-21] MEDS: DOCUSATE SODIUM/SENNA 50/8.6MG TAB PO SCH (09:17)
[2016-09-21] MEDS ORDERED: HYDROmorphone HCL 2 MG TAB ONE (11:34)
[2016-09-21] MEDS: ENOXAPARIN 100 MG/1ML SYR SC SCH (11:44)
--- NOTE | 2016-09-21 13:10 | PROGRESS NOTE ---
DATE: 09/21/2016 PAIN MANAGEMENT PROGRESS NOTE Ms. Hutchinson reports slightly improved pain relief with increase in the transdermal fentanyl dose over the last 24 hours. She continues to experience pain in the left medial lower extremity at the site of the DVT She reports pain with movement. She reports the oxycodone "helps." However, she reports that it only lasts for several hours. PHYSICAL EXAMINATION: Exam showed her to be awake and alert. She appears comfortable in supine position but when she attempts to sit up, she complains of leg pain on the left medial site. She has nonpitting edema all the way from the thigh down to the distal ankle. ASSESSMENT: Low back pain with left lower extremity. History of deep vein thrombosis. Metastatic renal cell carcinoma. TREATMENT AND RECOMMENDATIONS: 1. Recommend continuing her current transdermal fentanyl dose for an additional 24 hours before adjusting. 2. Recommend discontinuing oxycodone and trying hydromorphone orally. Continue IV hydromorphone for "back up" orders. LYN
[2016-09-21] MEDS: GABAPENTIN 300 MG CAP PO SCH ×2 (14:33→19:38)
[2016-09-21] MEDS: HYDROmorphone HCL 2 MG TAB PO PRN (16:05)
[2016-09-21] MEDS: WARFARIN SOD 6 MG TAB PO SCH (16:06)
[2016-09-21] MEDS: [UNRECOGNIZED DRUG - OTHER] PO SCH (17:53)
[2016-09-21] MEDS: NORTRIPTYLINE HCL 10 MG CAP PO SCH (19:38)
[2016-09-21] MEDS: MONTELUKAST SOD 10 MG TAB PO SCH (19:38)
--- NOTE | 2016-09-21 23:14 | Progress Note ---
Medicine Progress Note Date & Time of Visit: Sep 21, 2016 at 23:05. Subjective patient seen resting in bed states her pain level is better today compared to yesterday (+) BM no bleeding no other symptoms Objective Last 8 Hrs Date Time Temp Pulse Resp B/P Pulse Ox O2 Delivery O2 Flow Rate FiO2 09/21/16 19:46 37.0 83 18 133/79 94 Room Air 09/21/16 19:00 Room Air 09/21/16 16:00 Room Air 09/21/16 15:43 36.6 80 20 163/94 97 Room Air Physical Exam: General- oriented x 3, not in distress, speaks in sentences with no effort Lungs- clear breath sounds bilaterally, no rales /wheezes Heart- normal rate, regular rhythm; no murmur Abdomen- normal bowel sounds, non distended, soft, nontender Extremities- left lower leg: (+) edema improving, no erythema/ warmth, no tenderness right leg: essentially normal Neuro- alert, oriented x 3; no gross focal deficits Skin- warm & dry Laboratory Results: Last 24 Hours Test 09/21/16 07:41 Prothrombin Time 31.4 SECONDS Prothromb Time International Ratio 2.8 Sodium Level 135 mmol/L Potassium Level 4.7 mmol/L Chloride Level 102 mmol/L Carbon Dioxide Level 25 mmol/L Anion Gap 8.0 mmol/L Blood Urea Nitrogen 11 mg/dl Creatinine 0.73 mg/dl Est Creatinine Clear Calc Drug Dose 78.8 ml/min Estimated GFR () 95.4 Estimated GFR (Non- 82.3 BUN/Creatinine Ratio 14.5 Random Glucose 90 mg/dl Calcium Level 9.0 mg/dl Assessment & Plan 71 year old female with history of Metastatic Renal Cell CA... INTRACTABLE LOW BACK / LEFT HIP PAIN In setting of PELVIC METASTASIS FROM STAGE IV RENAL CELL CARCINOMA -Work up - CT pelvis showed stable 11x 10 cm mass centered in left iliac wing; No acute pelvic hematoma ; CT L-spine- no fx or subluxation, multilevel spondylitic changes with moderate spinal stenosis at L2-3 and L3-4 levels, mild- mod spinal stenosis L4-5 -S/P IV Dilaudid [employer]ORER --> Discontinued due to drowsiness/nausea/vomiting. - s/p Day 11/30 Radiation Therapy c/o Dr. Joey Poon (daily on week) - increased Fentanyl to 100 daily 09/20/16 Percocet changed to Dilaudid PO Gabapentin increased to 300mg continue IV Dilaudid PRN, Nortriptyline appreciate Pain management recommendations ACUTE RENAL FAILURE, RESOLVED - Likely pre renal secondary to volume depletion sec to inadequate PO intake, vomiting -Creatinine improved from 1.5 to 0.8 IV fluids discontinued Lasix held for now HYPONATREMIA, LIKELY HYPOVOLEMIC - Na went down to 122, asymptomatic--> 135 - remains 135 while off IV NSS continue oral fluid restriction appreciate Nephro SVC recommendations - monitor CONSTIPATION, Resolved likely narcotic induced - continue bowel regimen ANEMIA Hb 8.2 on presentation, need it to be > 10 as plan is for radiation rxs per discussion with Dr Villagran -Transfused 2 units of PRBCS on 09/12/16 - Hg 9.0, stable monitor METASTATIC RENAL CELL CANCER -Continue Sutent recently started by Dr. Villagran -Radiation oncology consulted LLE DVT Diagnosed by ultrasound 09/08/16 - Started on Lovenox and Coumadin 09/09/16 - INR 2.8 2nd day of Lovenox + coumadin overlap with therapeutic INR, d/c Lovenox INR daily, continue Coumadin - patient to be maintained on coumadin as per Dr. Villagran HYPERTENSION - Stable -Continue enalapril LEUKOCYTOSIS, UTI - urine culture: (+) Klebsiella > 100k - Ceftriaxone day 2, changed to Cefuroxime (completed 3 days antibiotics) STAGE 1 PRESSURE ULCER LEFT BUTTOCK Present on arrival -Wound care nurse consulted DVT PROPHYLAXIS -On Lovenox and Coumadin; d/c Lovenox 09/22/16 CODE STATUS -Full code per discussion with the patient PA DRUG MONITORING -Database queried with no issues identified DISPOSITION Lives alone - will need Rehab/ long term placement PT/OT Follows with Dr. Gonzalez for primary care Current Inpatient Medications: Current Inpatient Medications Medications (Trade) Dose Ordered Sig/Benjamín Route Start Time Stop Time Status Last Admin Dose Admin Naloxone HCl (Narcan Inj) 0.1 mg Q5M PRN IV 09/11/16 14:00 10/11/16 13:59 Enalapril Maleate (Vasotec Tab) 10 mg QAM PO 09/12/16 08:00 10/12/16 08:59 09/21/16 09:16 10 MG Montelukast Sodium (Singulair Tab) 10 mg HS PO 09/11/16 21:00 10/11/16 20:59 09/21/16 19:38 10 MG Non-Formulary Medication (Non-Formulary Patient'S Own Med) 1 ea DAILY@1800 PO 09/11/16 18:00 10/06/16 18:01 09/21/16 17:53 1 EA Diclofenac Sodium (Voltaren 1% Top Gel) 1 appln TID PRN EXT 09/12/16 12:15 10/12/16 12:14 09/21/16 04:33 1 APPLN Enoxaparin Sodium (Lovenox Inj) 90 mg Q12@0000,1200 SC 09/13/16 00:00 09/22/16 01:00 09/21/16 11:44 90 MG Polyethylene (Miralax Powder Packet) 17 gm DAILY PO 09/13/16 08:00 10/13/16 07:59 09/18/16 07:41 17 GM Ondansetron HCl (Zofran Inj) 4 mg Q6H PRN IV 09/12/16 18:15 10/12/16 18:14 09/13/16 09:38 4 MG Hydromorphone HCl (Dilaudid Inj) 2 mg ONE PRN IV 09/14/16 12:45 09/28/16 12:44 09/21/16 07:48 2 MG Bisacodyl (Dulcolax Tab) 10 mg BID PO 09/14/16 20:00 10/14/16 19:59 09/21/16 19:38 10 MG Magnesium Hydroxide (Milk Of Magnesia Susp) 30 ml Q6H PRN PO 09/15/16 16:45 10/15/16 16:44 09/15/16 21:50 30 ML Lactulose (Chronulac Syrup) 30 gm TID PRN PO 09/15/16 17:00 10/15/16 16:59 09/16/16 09:13 30 GM Nortriptyline HCl (Pamelor Cap) 10 mg HS PO 09/17/16 21:00 10/17/16 20:59 09/21/16 19:38 10 MG Hydromorphone HCl (Dilaudid Inj) 1 mg Q4H PRN IV 09/18/16 12:00 10/02/16 11:59 09/21/16 05:04 1 MG Fentanyl (Duragesic Patch) 100 mcg Q72H TD 09/20/16 11:00 10/04/16 10:59 09/20/16 10:55 100 MCG Miscellaneous (Fentanyl Patch Remove & Waste) 1 ea Q3D N/A 09/23/16 11:00 10/23/16 10:59 Miscellaneous Information (Check Fentanyl Patch Placement) 1 ea QS N/A 09/20/16 16:00 10/20/16 15:59 09/21/16 16:06 1 EA Levothyroxine Sodium (Synthroid Tab) 50 mcg DAILYBB PO 09/21/16 06:30 10/21/16 06:29 09/21/16 05:06 50 MCG Senna/Docusate Sodium (Senokot S Tab) 1 tab DAILY PO 09/21/16 08:00 10/21/16 07:59 09/21/16 09:17 1 TAB Gabapentin (Neurontin Cap) 300 mg TID PO 09/21/16 14:00 10/21/16 13:59 09/21/16 19:38 300 MG Hydromorphone HCl (Dilaudid Tab) 2 mg Q4H PRN PO 09/21/16 11:00 10/05/16 10:59 09/21/16 16:05 2 MG
[2016-09-22] VITALS (8 sets, daily range): BP systolic 136–164; BP diastolic 75–88; PULSE 77–92; TEMP 36.3–37.1; O2SAT 92–98
[2016-09-22] MEDS: CHECK FENTANYL PATCH PLACEMENT SCH ×3 (00:09→15:57)
[2016-09-22] MEDS: ENOXAPARIN 100 MG/1ML SYR SC SCH (00:09)
[2016-09-22] MEDS: HYDROmorphone HCL 2 MG TAB PO PRN ×5 (01:11→21:14)
[2016-09-22] MEDS: HYDROmorphone INJ 1 MG/ML SYR IV PRN ×3 (03:15→23:15)
[2016-09-22 05:54] LABS: HEMATOCRIT 28.1 % (37-47); MEAN CELL VOLUME 82.9 fL (80-100); MEAN CORPUSCULAR HEMOGLOBIN 26.3 pg (25-34); MEAN CORPUSCULAR HGB CONC 31.7 g/dl (32-36); MEAN PLATELET VOLUME 8.1 fL (7.4-10.4); PLATELET COUNT 427 K/uL (130-400); RED BLOOD COUNT 3.39 M/uL (4.2-5.4)
[2016-09-22] MEDS: LEVOTHYROXINE 50 MCG TAB PO SCH (06:00)
[2016-09-22 06:03] LABS: INR 2.6 (0.9-1.1); PROTHROMBIN TIME (PATIENT) 28.8 SECONDS (9.0-12.0)
[2016-09-22] MEDS: HYDROmorphone INJ 2 MG/ML SYR/VIAL IV PRN (07:33)
[2016-09-22] MEDS: BISACODYL 5 MG TABEC PO SCH ×2 (07:37→21:15)
[2016-09-22] MEDS: DOCUSATE SODIUM/SENNA 50/8.6MG TAB PO SCH (07:37)
[2016-09-22] MEDS: POLYETHYLENE (MIRALAX) 17 GM PACK PO SCH (07:37)
[2016-09-22] MEDS: GABAPENTIN 300 MG CAP PO SCH ×3 (07:38→21:15)
[2016-09-22] MEDS: ENALAPRIL MALEATE 10 MG TAB PO SCH (07:38)
--- NOTE | 2016-09-22 08:58 | Pain Management Progress Note ---
Pain Management Progress Note Date of Service Sep 22, 2016. Subjective Unable to see patient as she was in radiation during rounds. Objective Vital Signs: Last Vital Signs Documentation Date Time Temp Pulse Resp B/P Pulse Ox O2 Delivery O2 Flow Rate FiO2 09/22/16 08:00 Room Air 09/22/16 07:21 36.3 77 16 145/85 95 09/19/16 11:05 2.0 Laboratory (Last CBC): 09/22/16 05:30 [employer] Voice Recognition This chart was completed in part utilizing [employer] Voice Recognition Software. Random word insertions, pronoun errors, and incomplete sentences are an occasional consequence of this system due to software limitations and ambient noise. Any questions or concerns about the content, text or information contained within the body of this dictation should be directly addressed to the provider for clarification.
[2016-09-22] MEDS: WARFARIN SOD 3 MG TAB PO SCH (15:57)
[2016-09-22] MEDS: [UNRECOGNIZED DRUG - OTHER] PO SCH (18:09)
--- NOTE | 2016-09-22 20:42 | Progress Note ---
Internal Med Progress Note Date of Service: Sep 22, 2016. Provider Documentation: SUBJECTIVE: back pain has improved received radiation therapy today OBJECTIVE: Vital Signs-as noted below Exam: General- no sign of distress Lungs- clear breath sounds bilaterally, no rales /wheezes Heart- normal rate, regular rhythm; no murmur Abdomen- normal bowel sounds, non distended, soft, nontender Extremities- left lower leg: minimum edema , no erythema/ warmth, no tenderness right leg: essentially normal Neuro- alert, oriented x 3; no focal deficits Skin- warm & dry Lab data as noted below. 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 Joey Poon (daily on weekdays) - increased Fentanyl to 100 daily Percocet changed to Dilaudid PO Gabapentin increased to 300mg continue IV Dilaudid PRN, Nortriptyline cont bowel regimen to prevent Narcotic induced constipation appreciate Pain management recommendations ACUTE RENAL FAILURE, RESOLVED - Likely pre renal secondary to volume depletion sec to inadequate PO intake, vomiting -Creatinine improved from 1.5 to 0.8 IV fluids discontinued cont to hold Lasix /ACEI HYPONATREMIA, LIKELY HYPOVOLEMIC - Na went down to 122, asymptomatic improved with IV fluid--> 135 - remains 135 while off IV NSS continue oral fluid restriction appreciate Nephro recommendations - monitor BMP CONSTIPATION, Resolved likely narcotic induced - continue bowel regimen ANEMIA Hb 8.2 on presentation, -Transfused 2 units of PRBCS on 09/12/16 - Hg 9.0, stable METASTATIC RENAL CELL CANCER -Continue Sutent recently started by Dr. Villagran -Radiation oncology consulted-getting palliative radiation tx LLE DVT Diagnosed by ultrasound 09/08/16 - completed Lovenox and Coumadin bridge therapy INR daily, continue Coumadin - patient to be maintained on Coumadin as per Dr. Villagran HYPERTENSION - Stable -Continue enalapril LEUKOCYTOSIS, UTI - urine culture: (+) Klebsiella > 100k - Ceftriaxone day 2, changed to Cefuroxime (completed 3 days antibiotics) STAGE 1 PRESSURE ULCER LEFT BUTTOCK Present on arrival -Wound care nurse consulted DVT PROPHYLAXIS -On Lovenox and Coumadin; d/c Lovenox 09/22/16 CODE STATUS -Full code DISPOSITION Lives alone metastatic Cancer on palliative tx - will need Rehab/ [facility] placement PT/OT eval requested referral made for [facility] -given pt's advanced metastatic disease -acute rehab may not be appropriate group home facility may be able to provide care /support for patient current needs will D/w Case Management Follows with Dr. Gonzalez for primary care Vital Signs: Date Time Temp Pulse Resp B/P Pulse Ox O2 Delivery O2 Flow Rate FiO2 09/22/16 19:27 37.1 84 20 138/82 95 Room Air 09/22/16 15:14 36.8 92 17 164/75 98 Room Air 09/22/16 11:21 36.7 82 18 136/82 96 09/22/16 08:00 Room Air 09/22/16 07:21 36.3 77 16 145/85 95 Room Air 09/22/16 04:09 36.7 79 20 146/84 92 Room Air 09/22/16 00:00 Room Air 09/21/16 23:49 36.7 80 20 144/81 96 Room Air Lab Results: Results Past 24 Hours Test 09/22/16 05:30 Range/Units White Blood Count 6.30 4.8-10.8 K/uL Red Blood Count 3.39 4.2-5.4 M/uL Hemoglobin 8.9 12.0-16.0 g/dL Hematocrit 28.1 37-47 % Mean Corpuscular Volume 82.9 80-100 fL Mean Corpuscular Hemoglobin 26.3 25-34 pg Mean Corpuscular Hemoglobin Concent 31.7 32-36 g/dl RDW Standard Deviation 59.0 36.4-46.3 fL RDW Coefficient of Variation 19.3 11.5-14.5 % Platelet Count 427 130-400 K/uL Mean Platelet Volume 8.1 7.4-10.4 fL Prothrombin Time 28.8 9.0-12.0 SECONDS Prothromb Time International Ratio 2.6 0.9-1.1
[2016-09-22] MEDS ORDERED: SOD PHOSPHATE/SOD BIPHOSPHATE ENEMA 132 ML BTL PR PRN (21:00)
[2016-09-22] MEDS ORDERED: BISACODYL 10 MG SUPP PR PRN (21:00)
[2016-09-22] MEDS: DICLOFENAC SOD 1% GEL 100 GM TUBE EXT PRN (21:15)
[2016-09-22] MEDS: MONTELUKAST SOD 10 MG TAB PO SCH (21:16)
[2016-09-22] MEDS: NORTRIPTYLINE HCL 10 MG CAP PO SCH (21:16)
[2016-09-23] MEDS: HYDROmorphone HCL 2 MG TAB PO PRN ×3 (03:18→20:40)
[2016-09-23 04:04] VITALS: BP 142/89; PULSE 79; TEMP 36.5; O2SAT 97
[2016-09-23] MEDS: CHECK FENTANYL PATCH PLACEMENT SCH ×3 (04:06→16:18)
[2016-09-23] MEDS: LEVOTHYROXINE 50 MCG TAB PO SCH (05:40)
[2016-09-23] MEDS: HYDROmorphone INJ 1 MG/ML SYR IV PRN ×2 (05:40→18:13)
[2016-09-23 07:18] VITALS: BP 150/87; PULSE 78; TEMP 36.4; O2SAT 96
[2016-09-23] MEDS: HYDROmorphone INJ 2 MG/ML SYR/VIAL IV PRN (07:34)
[2016-09-23] MEDS: GABAPENTIN 300 MG CAP PO SCH ×3 (08:45→19:34)
[2016-09-23] MEDS: BISACODYL 5 MG TABEC PO SCH ×2 (08:45→19:33)
[2016-09-23] MEDS: DOCUSATE SODIUM/SENNA 50/8.6MG TAB PO SCH (08:47)
[2016-09-23] MEDS: POLYETHYLENE (MIRALAX) 17 GM PACK PO SCH ×2 (08:47→19:33)
[2016-09-23 11:01] VITALS: BP 117/73; PULSE 87; O2SAT 96
[2016-09-23] MEDS: FENTANYL PATCH REMOVE & WASTE SCH (11:20)
[2016-09-23] MEDS: FENTANYL 100 MCG/HR TDSY TD SCH (11:21)
[2016-09-23] MEDS ORDERED: NORT10CA4 PO (14:50)
[2016-09-23] MEDS ORDERED: DLCS PR (14:50)
[2016-09-23] MEDS ORDERED: DRGTP100 TD (14:50)
[2016-09-23] MEDS ORDERED: LCTL45 PO (14:50)
[2016-09-23] MEDS ORDERED: DLC5 PO (14:50)
[2016-09-23] MEDS ORDERED: HYDR-5688 PO (14:50)
[2016-09-23] MEDS ORDERED: NRN300 PO (14:50)
[2016-09-23] MEDS ORDERED: CMD3 PO (14:50)
[2016-09-23] MEDS ORDERED: SYN50 PO (14:50)
[2016-09-23] MEDS ORDERED: DLD2 PO (14:50)
[2016-09-23] MEDS ORDERED: MRLP17 PO (14:50)
[2016-09-23] MEDS ORDERED: SENN8.6T7 PO (14:50)
--- NOTE | 2016-09-23 14:51 | Discharge Instructions ---
Discharge Instructions Date of Service Sep 23, 2016. Admission Reason for Admission: Dvt; Intractable Pain; Renal Cell Carcinoma Discharge Discharge Diagnosis / Problem: INTRACTABLE BACK PAIN /RENAL CELL CA WITH METASTATIS Discharge Goals Goal(s): Improve disease control, Diagnostic testing, Therapeutic intervention Activity Recommendations Activity Level: Assistance Required Therapies: Physical Therapy, Occupational Therapy . Additional Information Patient informed of condition: Yes Advance Directives: No DNR: No Level of Care: Acute Rehab Communicable Disease: No Prognosis: Other (POOR ) [place]ruz Catheter: No Instructions / Follow-Up Instructions / Follow-Up FOLLOW UP WITH FAMILY PHYSICIAN AFTER DISCHARGE FORM REHAB TSH LEVEL NEEDS TO BE CHECKED IN 6-8 WEEKS AND ADJUST LEVOTHYROXINE DOSE ACCORDINGLY Current Hospital Diet Patient's current hospital diet: AHA Diet (Heart Healthy) Discharge Diet Recommended Diet: Regular Diet Pending Studies Studies pending at discharge: no Medical Emergencies . Who to Call and When: Medical Emergencies: If at any time you feel your situation is an emergency, please call 911 immediately. . Non-Emergent Contact Non-Emergency issues call your: Primary Care Provider . . "Provider Documentation" section prepared by Catalina Garcia. Core Measure Problem Core Measures: None
[2016-09-23 15:03] VITALS: BP 153/97; PULSE 80; TEMP 36.8; O2SAT 97
[2016-09-23 15:27] LABS: PROTHROMBIN TIME (PATIENT) 22.6 SECONDS (9.0-12.0)
--- NOTE | 2016-09-23 15:58 | Pain Management Progress Note ---
Pain Management Progress Note Date of Service Sep 23, 2016. Subjective Patient was seen for follow up this am. Reports improved pain with exception of pain with movement. Hydromorphone orally efficacious. Reports no side effects. Objective Vital Signs: Last Vital Signs Documentation Date Time Temp Pulse Resp B/P Pulse Ox O2 Delivery O2 Flow Rate FiO2 09/23/16 15:03 36.8 80 18 153/97 97 Room Air 09/19/16 11:05 2.0 Physical Exam: A/Ox3. Able to deep breath and cough. Tender left medial thigh. Laboratory (Last CBC): 09/22/16 05:30 Assessment 1. Metastatic malignancy. 2. Left leg pain with DVT Recommendations 1. Increase PO hydromorphone to 4 mg for breakthrough. [employer] Voice Recognition This chart was completed in part utilizing [employer] Voice Recognition Software. Random word insertions, pronoun errors, and incomplete sentences are an occasional consequence of this system due to software limitations and ambient noise. Any questions or concerns about the content, text or information contained within the body of this dictation should be directly addressed to the provider for clarification.
[2016-09-23] MEDS: WARFARIN SOD 3 MG TAB PO SCH (16:19)
[2016-09-23] MEDS: [UNRECOGNIZED DRUG - OTHER] PO SCH (18:18)
--- NOTE | 2016-09-23 19:17 | Progress Note ---
Internal Med Progress Note Date of Service: Sep 23, 2016. Provider Documentation: SUBJECTIVE: PO Dilaudid dose increased to 4 mg PO q4 hrs back pain has improved some, pain is worse with movement or turning position had 3 BM today no fever or chills OBJECTIVE: Vital Signs-as noted below Exam: General- no sign of distress Lungs- clear breath sounds bilaterally, no rales /wheezes Heart- normal rate, regular rhythm; no murmur Abdomen- normal bowel sounds, non distended, soft, nontender Extremities- left lower leg: + ve edema , no erythema/ warmth, no tenderness right leg: essentially normal Neuro- alert, oriented x 3; no focal deficits Skin- warm & dry Lab data as noted below. 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 Joey Poon (daily on weekdays) got # 01/30 radiation tx appreciate Pain management recommendations - on Fentanyl to 100 daily Percocet changed to Dilaudid PO-dose increased to 4 mg PO Q 4hrs PRN for breakthrough pain Gabapentin to 300mgTID continue IV Dilaudid PRN, Nortriptyline cont bowel regimen to prevent Narcotic induced constipation METASTATIC RENAL CELL CANCER -stage 4 with wide spread mets very poor prognosis PET scan on 09/02/16 which showed large soft tissue mets with mass effect upon the left psoas muscle, eroding the left iliac bone, and invading the left gluteal musculature with additional mass effect suggested to the left femoral vein and stable mildly prominent abdominal aorta lymph nodes -on palliative chemo Sutent recently started by Dr. Villagran -Radiation oncology consulted-getting palliative radiation tx LLE DVT due to above patient has also had LLE swelling and calf pain x 3 weeks and was had LLE US positive for DVT on 09/08/16. She was started on Lovenox and Coumadin - completed Lovenox and Coumadin bridge therapy INR daily, continue Coumadin - patient to be maintained on Coumadin life long as per Dr. Villagran ACUTE RENAL FAILURE, RESOLVED - Likely pre renal secondary to volume depletion sec to inadequate PO intake, vomiting -Creatinine improved from 1.5 to 0.8 IV fluids discontinued D/c Lasix /ACEI HYPONATREMIA, LIKELY HYPOVOLEMIC - Na went down to 122, asymptomatic improved with IV fluid--> 135 - remains stable 135 D/angus IV NSS will D/c Fluid restriction -more risk for dehydration for radiation tx , poor appetite appreciate Nephro recommendations CONSTIPATION, Resolved likely narcotic induced - continue bowel regimen ANEMIA Hb 8.2 on presentation, -Transfused 2 units of PRBCS on 09/12/16 - Hg 9.0, stable STAGE 1 PRESSURE ULCER LEFT BUTTOCK Present on arrival -Wound care nurse consulted DVT PROPHYLAXIS -on Coumadin INR therapeutic CODE STATUS -Full code prognosis remains poor will need D/w with Heme onc regarding Prognosis /life expectancy /code status DISPOSITION Lives alone metastatic Cancer on palliative tx -intractable pain -will need rehab upon discharge PT/OT eval requested referral made for [facility] -D/w Daughter Katerina -daughter prefers [facility] referral -updated regarding the role of acute rehab vs SNF as per daughter pt would like to return home after rehab at present pt is not in a state to participate in rehab cont inpatient care for pain control /palliative chemo possible Tx to [facility] next week when pain in better controlled, and if pt is accepted will update Case Management Follows with Dr. Gonzalez for primary care Vital Signs: Date Time Temp Pulse Resp B/P Pulse Ox O2 Delivery O2 Flow Rate FiO2 09/23/16 16:00 Room Air 09/23/16 15:03 36.8 80 18 153/97 97 Room Air 09/23/16 11:01 87 20 117/73 96 Room Air 09/23/16 08:00 Room Air 09/23/16 07:18 36.4 78 20 150/87 96 Room Air 09/23/16 04:04 36.5 79 20 142/89 97 Room Air 09/23/16 00:30 Room Air 09/22/16 23:28 36.6 09/22/16 23:17 79 24 149/88 98 Lab Results: Results Past 24 Hours Test 09/23/16 15:04 Range/Units Prothrombin Time 22.6 9.0-12.0 SECONDS Prothromb Time International Ratio 2.0 0.9-1.1
[2016-09-23] MEDS: DICLOFENAC SOD 1% GEL 100 GM TUBE EXT PRN (19:33)
[2016-09-23] MEDS ORDERED: BISACODYL 5 MG TABEC PO PRN (20:00)
[2016-09-23 20:17] VITALS: BP 167/85; PULSE 90; TEMP 36.3; O2SAT 95
[2016-09-23] MEDS: MONTELUKAST SOD 10 MG TAB PO SCH (20:40)
[2016-09-23] MEDS: NORTRIPTYLINE HCL 10 MG CAP PO SCH (20:41)
[2016-09-24] VITALS (7 sets, daily range): BP systolic 118–161; BP diastolic 70–90; PULSE 55–85; TEMP 36.4–36.8; O2SAT 94–98
[2016-09-24] MEDS: CHECK FENTANYL PATCH PLACEMENT SCH ×4 (00:06→23:26)
[2016-09-24 00:20] LABS: URINE APPEARANCE CLEAR (CLEAR); URINE BILIRUBIN NEG (NEG); URINE COLOR YELLOW; URINE NITRITE NEG (NEG); URINE PH 6.5 (4.5-7.5); URINE SPECIFIC GRAVITY 1.011 (1.000-1.030); UROBILINOGEN NEG (NEG); ZZUR CULT IF INDIC CLEAN CATCH NO
[2016-09-24 00:22] LABS: MANUAL MICROSCOPIC REQUIRED? NO; REVIEW REQ? NO
[2016-09-24] MEDS: HYDROmorphone HCL 2 MG TAB PO PRN ×2 (02:19→18:03)
[2016-09-24] MEDS: LEVOTHYROXINE 50 MCG TAB PO SCH (06:09)
[2016-09-24 07:01] LABS: INR 1.9 (0.9-1.1); PROTHROMBIN TIME (PATIENT) 20.7 SECONDS (9.0-12.0)
[2016-09-24] MEDS: HYDROmorphone INJ 2 MG/ML SYR/VIAL IV PRN (07:36)
[2016-09-24] MEDS: POLYETHYLENE (MIRALAX) 17 GM PACK PO SCH ×2 (09:02→19:45)
[2016-09-24] MEDS: GABAPENTIN 300 MG CAP PO SCH ×3 (09:03→19:45)
[2016-09-24] MEDS: DOCUSATE SODIUM/SENNA 50/8.6MG TAB PO SCH (09:03)
--- NOTE | 2016-09-24 14:19 | Progress Note ---
Internal Med Progress Note Date of Service: Sep 24, 2016. Provider Documentation: SUBJECTIVE: pt found sitting on chair back pain has much improved, able to participate in PT today walked 33 ft , requires 1 person assistance for transfer had radiation tx this AM having normal bowel movement , OBJECTIVE: Vital Signs-as noted below Exam: General- no sign of distress Lungs- clear breath sounds bilaterally, no rales /wheezes Heart- normal rate, regular rhythm; no murmur Abdomen- normal bowel sounds, non distended, soft, nontender Extremities- left lower leg: + ve edema , no erythema/ warmth, no tenderness right leg: essentially normal Neuro- alert, oriented x 3; no focal deficits Skin- warm & dry Lab data as noted below. 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 Joey Poon (daily on week) got # 03/02 radiation tx D/w Dr Poon today -pt is scheduled to have total 15 session of radiation tx has been getting high dose of radiation localized to left hip bone metastasis and mass symptomatically pt has shown improvement on her left hip and back pain since starting on radiation tx able to be OOB , bear wt while using walker appreciate Pain management recommendations - on Fentanyl to 100 daily Percocet changed to Dilaudid PO-dose increased to 4 mg PO Q 4hrs PRN for breakthrough pain Gabapentin to 300mgTID continue IV Dilaudid PRN, Nortriptyline cont bowel regimen to prevent Narcotic induced constipation METASTATIC RENAL CELL CANCER -stage 4 with wide spread mets follows with Heme onc Dr Villagran -last office visit with Dr Villagran on 09/01/16 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 Palliative external beam radiation tx to mets to left neck adenopathy and left hip s/p Left hip RAFAL surgery by Dr Gaona for femoral head mets pt started on Sutent by Dr Villagran PET scan on 09/02/16 which showed large soft tissue mets with mass effect upon the left psoas muscle, eroding the left iliac bone, and invading the left gluteal musculature with additional mass effect suggested to the left femoral vein and stable mildly prominent abdominal aorta lymph nodes -Radiation oncology consulted-getting palliative radiation tx Scheduled to see Dr Villagran on 10/04/16 -Family Daughter requesting consult with Dr Villagran , requesting PET scan to assess improvement /Shrinkage of tumor Heme onc Consulted LLE DVT due to above patient has also had LLE swelling and calf pain x 3 weeks and was had LLE US positive for DVT on 09/08/16. She was started on Lovenox and Coumadin - completed Lovenox and Coumadin bridge therapy INR daily, continue Coumadin dose increased to 4 mg PO today for INR 1.9 - patient to be maintained on Coumadin life long as per Dr. Villagran ACUTE RENAL FAILURE, RESOLVED resolved - Likely pre renal secondary to volume depletion sec to inadequate PO intake, vomiting -Creatinine improved from 1.5 to 0.8 IV fluids discontinued D/c Lasix /ACEI HYPONATREMIA, LIKELY HYPOVOLEMIC - Na went down to 122, asymptomatic improved with IV fluid--> 135 - remains stable 135 D/angus IV NSS will D/c Fluid restriction -more risk for dehydration for radiation tx , poor appetite appreciate Nephro recommendations CONSTIPATION, Resolved likely narcotic induced - continue bowel regimen ANEMIA Hb 8.2 on presentation, -Transfused 2 units of PRBCS on 09/12/16 - HB remains stable STAGE 1 PRESSURE ULCER LEFT BUTTOCK Present on arrival -Wound care nurse consulted DVT PROPHYLAXIS -on Coumadin INR therapeutic CODE STATUS -Full code prognosis remains poor will need D/w with Heme onc regarding Prognosis /life expectancy /code status DISPOSITION Lives alone metastatic Cancer on palliative tx -intractable pain -will need rehab upon discharge PT/OT eval requested referral made for [facility] -D/w Daughter Katerina possible Tx to [facility] next week when pain in better controlled, will update Case Management Follows with Dr. Gonzalez for primary care Vital Signs: Date Time Temp Pulse Resp B/P Pulse Ox O2 Delivery O2 Flow Rate FiO2 09/24/16 11:20 36.7 55 18 118/76 97 Room Air 09/24/16 11:16 Room Air 09/24/16 07:18 36.6 79 18 161/90 96 Room Air 09/24/16 04:08 36.6 78 20 161/81 95 Room Air 09/24/16 00:15 36.6 79 20 153/90 95 Room Air 09/24/16 00:05 Room Air 09/23/16 20:17 36.3 90 18 167/85 95 Room Air 09/23/16 20:00 Room Air 09/23/16 16:00 Room Air 09/23/16 15:03 36.8 80 18 153/97 97 Room Air Lab Results: Results Past 24 Hours Test 09/23/16 15:04 09/24/16 00:05 09/24/16 06:26 Range/Units Prothrombin Time 22.6 20.7 9.0-12.0 SECONDS Prothromb Time International Ratio 2.0 1.9 0.9-1.1 Urine Color YELLOW Urine Appearance CLEAR CLEAR Urine pH 6.5 4.5-7.5 Urine Specific [place] 1.011 1.000-1.030 Urine Protein NEG NEG Urine Glucose (UA) NEG NEG Urine Ketones NEG NEG Urine Occult Blood NEG NEG Urine Nitrite NEG NEG Urine Bilirubin NEG NEG Urine Urobilinogen NEG NEG Urine Leukocyte Esterase NEG NEG
[2016-09-24] MEDS: WARFARIN SOD 4 MG TAB PO SCH (16:06)
[2016-09-24] MEDS: [UNRECOGNIZED DRUG - OTHER] PO SCH (18:00)
[2016-09-24] MEDS: MONTELUKAST SOD 10 MG TAB PO SCH (19:45)
[2016-09-24] MEDS: NORTRIPTYLINE HCL 10 MG CAP PO SCH (19:46)
[2016-09-24] MEDS: HYDROmorphone INJ 1 MG/ML SYR IV PRN (19:49)
[2016-09-25] VITALS (8 sets, daily range): BP systolic 134–161; BP diastolic 80–87; PULSE 76–86; TEMP 36.5–37; O2SAT 93–96
[2016-09-25] MEDS: LEVOTHYROXINE 50 MCG TAB PO SCH (05:36)
[2016-09-25] MEDS: HYDROmorphone HCL 2 MG TAB PO PRN ×2 (05:38→20:41)
[2016-09-25] MEDS: HYDROmorphone INJ 2 MG/ML SYR/VIAL IV PRN (07:31)
[2016-09-25] MEDS: DICLOFENAC SOD 1% GEL 100 GM TUBE EXT PRN ×3 (07:31→17:59)
[2016-09-25] MEDS: CHECK FENTANYL PATCH PLACEMENT SCH ×2 (07:36→15:29)
[2016-09-25] MEDS: GABAPENTIN 300 MG CAP PO SCH ×3 (09:18→20:35)
[2016-09-25] MEDS: DOCUSATE SODIUM/SENNA 50/8.6MG TAB PO SCH (09:18)
[2016-09-25] MEDS: POLYETHYLENE (MIRALAX) 17 GM PACK PO SCH ×2 (09:18→20:35)
[2016-09-25] MEDS: WARFARIN SOD 4 MG TAB PO SCH (15:31)
[2016-09-25] MEDS: HYDROmorphone INJ 1 MG/ML SYR IV PRN (17:58)
[2016-09-25] MEDS: [UNRECOGNIZED DRUG - OTHER] PO SCH (17:59)
[2016-09-25] MEDS: NORTRIPTYLINE HCL 10 MG CAP PO SCH (20:35)
[2016-09-25] MEDS: MONTELUKAST SOD 10 MG TAB PO SCH (20:36)
--- NOTE | 2016-09-25 21:16 | Progress Note ---
Internal Med Progress Note Date of Service: Sep 25, 2016. Provider Documentation: SUBJECTIVE: got radiation tx today back pain is with in control still having worsening of symptom with movements and transfer OBJECTIVE: Vital Signs-as noted below Exam: General- no sign of distress Lungs- clear breath sounds bilaterally, no rales /wheezes Heart- normal rate, regular rhythm; no murmur Abdomen- normal bowel sounds, non distended, soft, nontender Extremities- left lower leg: + ve edema , no erythema/ warmth, no tenderness right leg: essentially normal Neuro- alert, oriented x 3; no focal deficits Skin- warm & dry Lab data as noted below. 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 Joey Poon (daily on weekdays) no Radiation tx on Sat /Sun recieved # radiation tx -pt is scheduled to have total 15 session of radiation tx has been getting high dose of radiation localized to left hip bone metastasis and mass symptomatically pt has shown improvement on her left hip and back pain since starting on radiation tx able to be OOB , bear wt while using walker appreciate Pain management recommendations - on Fentanyl to 100 daily Percocet changed to Dilaudid PO-dose increased to 4 mg PO Q 4hrs PRN for breakthrough pain Gabapentin to 300mgTID continue IV Dilaudid PRN, Nortriptyline cont bowel regimen to prevent Narcotic induced constipation METASTATIC RENAL CELL CANCER -stage 4 with wide spread mets follows with Heme onc Dr Villagran -last office visit with Dr Villagran on 09/01/16 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 Palliative external beam radiation tx to mets to left neck adenopathy and left hip s/p Left hip RAFAL surgery by Dr Gaona for femoral head mets pt started on Sutent by Dr Villagran PET scan on 09/02/16 which showed large soft tissue mets with mass effect upon the left psoas muscle, eroding the left iliac bone, and invading the left gluteal musculature with additional mass effect suggested to the left femoral vein and stable mildly prominent abdominal aorta lymph nodes -Radiation oncology consulted-getting palliative radiation tx Scheduled to see Dr Villagran on 10/04/16 -Family Daughter requesting consult with Dr Villagran , requesting PET scan to assess improvement /Shrinkage of tumor Heme onc Consulted LLE DVT due to above patient has also had LLE swelling and calf pain x 3 weeks and was had LLE US positive for DVT on 09/08/16. She was started on Lovenox and Coumadin - completed Lovenox and Coumadin bridge therapy INR daily, continue Coumadin - patient to be maintained on Coumadin life long as per Dr. Villagran ACUTE RENAL FAILURE, RESOLVED resolved - Likely pre renal secondary to volume depletion sec to inadequate PO intake, vomiting -Creatinine improved from 1.5 to 0.8 IV fluids discontinued D/c Lasix /ACEI HYPONATREMIA, LIKELY HYPOVOLEMIC - Na went down to 122, asymptomatic improved with IV fluid--> 135 - remains stable 135 D/angus IV NSS will D/c Fluid restriction -more risk for dehydration for radiation tx , poor appetite appreciate Nephro recommendations CONSTIPATION, Resolved likely narcotic induced - continue bowel regimen ANEMIA Hb 8.2 on presentation, -Transfused 2 units of PRBCS on 09/12/16 - HB remains stable STAGE 1 PRESSURE ULCER LEFT BUTTOCK Present on arrival -Wound care nurse consulted DVT PROPHYLAXIS -on Coumadin INR therapeutic CODE STATUS -Full code prognosis remains poor will need D/w with Heme onc regarding Prognosis /life expectancy /code status DISPOSITION Lives alone metastatic Cancer on palliative tx -intractable pain -will need rehab upon discharge PT/OT tg requested referral made for [facility] -D/w Daughter Katerina possible Tx to [facility] next week when pain in better controlled, Follows with Dr. Gonzalez for primary care Vital Signs: Date Time Temp Pulse Resp B/P Pulse Ox O2 Delivery O2 Flow Rate FiO2 09/25/16 20:04 37.0 83 16 149/83 94 Room Air 09/25/16 16:00 96 Room Air 09/25/16 14:34 36.5 79 20 161/87 96 09/25/16 13:20 36.7 86 18 140/82 95 Room Air 09/25/16 10:13 Room Air 09/25/16 09:32 86 24 134/80 95 Room Air 09/25/16 08:00 36.6 95 Room Air 09/25/16 04:01 36.5 76 20 153/87 96 Room Air 09/25/16 00:01 Room Air 09/24/16 23:01 36.4 77 18 133/70 94 Room Air
[2016-09-26] VITALS (7 sets, daily range): BP systolic 129–151; BP diastolic 77–87; PULSE 76–85; TEMP 36.3–36.6; O2SAT 93–98
[2016-09-26] MEDS: DICLOFENAC SOD 1% GEL 100 GM TUBE EXT PRN ×3 (02:16→22:39)
[2016-09-26] MEDS: HYDROmorphone HCL 2 MG TAB PO PRN ×5 (02:16→22:44)
[2016-09-26 06:23] LABS: INR 1.7 (0.9-1.1); PROTHROMBIN TIME (PATIENT) 18.7 SECONDS (9.0-12.0)
[2016-09-26] MEDS: LEVOTHYROXINE 50 MCG TAB PO SCH (06:31)
[2016-09-26] MEDS: POLYETHYLENE (MIRALAX) 17 GM PACK PO SCH ×2 (07:58→22:38)
[2016-09-26] MEDS: DOCUSATE SODIUM/SENNA 50/8.6MG TAB PO SCH (07:58)
[2016-09-26] MEDS: GABAPENTIN 300 MG CAP PO SCH ×3 (07:58→22:37)
[2016-09-26] MEDS: CHECK FENTANYL PATCH PLACEMENT SCH ×3 (08:00→16:13)
[2016-09-26] MEDS: HYDROmorphone INJ 1 MG/ML SYR IV PRN ×3 (08:06→18:40)
[2016-09-26] MEDS: FENTANYL PATCH REMOVE & WASTE SCH (10:42)
[2016-09-26] MEDS: FENTANYL 100 MCG/HR TDSY TD SCH (10:43)
--- NOTE | 2016-09-26 10:53 | ONCOLOGY CONSULTATION ---
DATE OF CONSULTATION: 09/26/2016 CONSULT REQUESTED BY: Dr. Garcia. REASON FOR CONSULTATION: Metastatic renal cell cancer. HISTORY OF PRESENT ILLNESS: I saw Mrs. Hutchinson in her hospital room yesterday afternoon. She is a 71-year-old woman whom I have followed for many years for metastatic renal cell carcinoma. She has been off therapy for several years as she was in clinical remission. Recently, she presented to my office with complaints of left hemipelvis pain and difficulty walking. CT scan imaging showed a large destructive soft tissue mass in the pelvis on the left side. She was subsequently referred for palliative radiation therapy. I restarted her on oral Sutent chemotherapy. She was then subsequently admitted to [facility] due to difficulty managing her pain. She is doing quite well at the present time. She is ambulating with minimal assistance. She states her pain is under good control. IMPRESSION: Metastatic renal cell carcinoma. She will continue her external beam radiation therapy. She will continue her oral Sutent. She will likely need to go to a rehab facility after discharge. I again reviewed the details of her illness with her and her daughter who was with her at the time of my visit. I explained to them there was no need for further imaging studies until she finishes her radiation. She and the daughter understood. Apparently another daughter has been somewhat difficult, demanding that a PET/CT scan be done at this time. I explained to them that that was not indicated. They understood. I will continue to follow along. She will then be followed as an outpatient. LYN
[2016-09-26] MEDS: WARFARIN SOD 4 MG TAB PO SCH (16:10)
[2016-09-26] MEDS: [UNRECOGNIZED DRUG - OTHER] PO SCH (16:11)
--- NOTE | 2016-09-26 21:57 | Progress Note ---
Internal Med Progress Note Date of Service: Sep 26, 2016. Provider Documentation: SUBJECTIVE: back pain has improved able to be OOB sit on chair getting pain relief with PRN PO Dilaudid OBJECTIVE: Vital Signs-as noted below Exam: General- no sign of distress Lungs- clear breath sounds bilaterally, no rales /wheezes Heart- normal rate, regular rhythm; no murmur Abdomen- normal bowel sounds, non distended, soft, nontender Extremities- left lower leg: + ve edema , no erythema/ warmth, no tenderness right leg: essentially normal Neuro- alert, oriented x 3; no focal deficits Skin- warm & dry Lab data as noted below. 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 Joey Poon (daily on weekdays) no Radiation tx on Sat /Sun received # radiation tx no radiation tx today -pt is scheduled to have total 15 session of radiation tx has been getting high dose of radiation localized to left hip bone metastasis and mass symptomatically pt has shown improvement on her left hip and back pain since starting on radiation tx able to be OOB , bear wt while using walker appreciate Pain management recommendations - on Fentanyl to 100 daily Percocet changed to Dilaudid PO-dose increased to 4 mg PO Q 4hrs PRN for breakthrough pain Gabapentin to 300mgTID continue IV Dilaudid PRN, Nortriptyline cont bowel regimen to prevent Narcotic induced constipation METASTATIC RENAL CELL CANCER -stage 4 with wide spread mets follows with Heme onc Dr Villagran -last office visit with Dr Villagran on 09/01/16 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 Palliative external beam radiation tx to mets to left neck adenopathy and left hip s/p Left hip RAFAL surgery by Dr Gaona for femoral head mets pt started on Sutent by Dr Villagran PET scan on 09/02/16 which showed large soft tissue mets with mass effect upon the left psoas muscle, eroding the left iliac bone, and invading the left gluteal musculature with additional mass effect suggested to the left femoral vein and stable mildly prominent abdominal aorta lymph nodes -Radiation oncology consulted-getting palliative radiation tx Scheduled to see Dr Villagran on 10/04/16 Heme onc Consulted -appreciate input LLE DVT due to above patient has also had LLE swelling and calf pain x 3 weeks and was had LLE US positive for DVT on 09/08/16. She was started on Lovenox and Coumadin - completed Lovenox and Coumadin bridge therapy INR daily, continue Coumadin - patient to be maintained on Coumadin life long as per Dr. Villagran ACUTE RENAL FAILURE, RESOLVED resolved - Likely pre renal secondary to volume depletion sec to inadequate PO intake, vomiting -Creatinine improved from 1.5 to 0.8 IV fluids discontinued D/c Lasix /ACEI HYPONATREMIA, LIKELY HYPOVOLEMIC - Na went down to 122, asymptomatic improved with IV fluid--> 135 - remains stable 135 D/angus IV NSS will D/c Fluid restriction -more risk for dehydration for radiation tx , poor appetite appreciate Nephro recommendations CONSTIPATION, Resolved likely narcotic induced - continue bowel regimen ANEMIA Hb 8.2 on presentation, -Transfused 2 units of PRBCS on 09/12/16 - HB remains stable STAGE 1 PRESSURE ULCER LEFT BUTTOCK Present on arrival -Wound care nurse consulted DVT PROPHYLAXIS -on Coumadin INR therapeutic CODE STATUS -Full code prognosis remains poor will need D/w with Heme onc regarding Prognosis /life expectancy /code status DISPOSITION Lives alone metastatic Cancer on palliative tx -intractable pain -will need rehab upon discharge PT/OT eval [facility] -D[facility]w Daughter Katerina possible Tx to [facility] next week when pain in better controlled, Follows with Dr. Gonzalez for primary care Vital Signs: Date Time Temp Pulse Resp B/P Pulse Ox O2 Delivery O2 Flow Rate FiO2 09/26/16 19:00 36.6 82 18 130/87 97 Room Air 09/26/16 16:00 Room Air 09/26/16 15:14 36.6 83 16 145/87 97 Room Air 09/26/16 11:03 36.5 83 20 145/84 95 Room Air 09/26/16 08:00 Room Air 09/26/16 07:08 36.6 76 18 151/87 96 Room Air 09/26/16 04:33 36.3 76 18 146/80 98 Room Air 09/26/16 00:00 93 Room Air 09/25/16 23:20 36.6 84 20 135/80 93 Room Air Lab Results: Results Past 24 Hours Test 09/26/16 05:43 Range/Units Prothrombin Time 18.7 9.0-12.0 SECONDS Prothromb Time International Ratio 1.7 0.9-1.1
[2016-09-26] MEDS: MONTELUKAST SOD 10 MG TAB PO SCH (22:37)
[2016-09-26] MEDS: NORTRIPTYLINE HCL 10 MG CAP PO SCH (22:38)
[2016-09-27] VITALS (7 sets, daily range): BP systolic 117–132; BP diastolic 74–83; PULSE 75–88; TEMP 36.6–36.8; O2SAT 95–98
[2016-09-27] MEDS: HYDROmorphone HCL 2 MG TAB PO PRN ×3 (04:14→17:46)
[2016-09-27] MEDS: LEVOTHYROXINE 50 MCG TAB PO SCH (06:30)
[2016-09-27] MEDS: GABAPENTIN 300 MG CAP PO SCH ×3 (07:45→19:57)
[2016-09-27] MEDS: DOCUSATE SODIUM/SENNA 50/8.6MG TAB PO SCH (07:45)
[2016-09-27] MEDS: DICLOFENAC SOD 1% GEL 100 GM TUBE EXT PRN ×2 (07:45→15:48)
[2016-09-27] MEDS: POLYETHYLENE (MIRALAX) 17 GM PACK PO SCH ×2 (07:45→20:02)
[2016-09-27] MEDS: CHECK FENTANYL PATCH PLACEMENT SCH ×4 (07:46→23:48)
[2016-09-27] MEDS: HYDROmorphone INJ 1 MG/ML SYR IV PRN ×2 (13:18→19:56)
[2016-09-27] MEDS: WARFARIN SOD 4 MG TAB PO SCH (15:46)
[2016-09-27] MEDS: [UNRECOGNIZED DRUG - OTHER] PO SCH (17:44)
--- NOTE | 2016-09-27 18:22 | Progress Note ---
Internal Med Progress Note Date of Service: Sep 27, 2016. Provider Documentation: SUBJECTIVE: offers no complain back pain remains stable no constipation , having regular bowel movement OBJECTIVE: Vital Signs-as noted below Exam: General- no sign of distress Lungs- clear breath sounds bilaterally, no rales /wheezes Heart- normal rate, regular rhythm; no murmur Abdomen- normal bowel sounds, non distended, soft, nontender Extremities- left lower leg: + ve edema , no erythema/ warmth, no tenderness right leg: essentially normal Neuro- alert, oriented x 3; no focal deficits Skin- warm & dry Lab data as noted below. 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 Joey Poon (daily on ) no Radiation tx on Sat /Sun received # radiation tx no radiation tx today ( wednesday ) -pt is scheduled to have total 15 session of radiation tx has been getting high dose of radiation localized to left hip bone metastasis and mass symptomatically pt has shown improvement on her left hip and back pain since starting on radiation tx able to be OOB , bear wt while using walker appreciate Pain management recommendations - on Fentanyl to 100 daily Percocet changed to Dilaudid PO-dose increased to 4 mg PO Q 4hrs PRN for breakthrough pain Gabapentin to 300mgTID continue IV Dilaudid PRN, Nortriptyline cont bowel regimen to prevent Narcotic induced constipation METASTATIC RENAL CELL CANCER -stage 4 with wide spread mets follows with Heme onc Dr Villagran -last office visit with Dr Villagran on 09/01/16 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 Palliative external beam radiation tx to mets to left neck adenopathy and left hip s/p Left hip RAFAL surgery by Dr Gaona for femoral head mets pt started on Sutent by Dr Villagran PET scan on 09/02/16 which showed large soft tissue mets with mass effect upon the left psoas muscle, eroding the left iliac bone, and invading the left gluteal musculature with additional mass effect suggested to the left femoral vein and stable mildly prominent abdominal aorta lymph nodes -Radiation oncology consulted-getting palliative radiation tx Scheduled to see Dr Villagran on 10/04/16 Heme onc Consulted -appreciate input LLE DVT due to above patient has also had LLE swelling and calf pain x 3 weeks and was had LLE US positive for DVT on 09/08/16. She was started on Lovenox and Coumadin - completed Lovenox and Coumadin bridge therapy INR daily, continue Coumadin - patient to be maintained on Coumadin life long as per Dr. Villagran ACUTE RENAL FAILURE, RESOLVED resolved - Likely pre renal secondary to volume depletion sec to inadequate PO intake, vomiting -Creatinine improved from 1.5 to 0.8 IV fluids discontinued D/c Lasix /ACEI HYPONATREMIA, LIKELY HYPOVOLEMIC - Na went down to 122, asymptomatic improved with IV fluid--> 135 - remains stable 135 D/angus IV NSS will D/c Fluid restriction -more risk for dehydration for radiation tx , poor appetite appreciate Nephro recommendations CONSTIPATION, Resolved likely narcotic induced - continue bowel regimen ANEMIA Hb 8.2 on presentation, -Transfused 2 units of PRBCS on 09/12/16 - HB remains stable STAGE 1 PRESSURE ULCER LEFT BUTTOCK Present on arrival -Wound care nurse consulted DVT PROPHYLAXIS -on Coumadin INR therapeutic CODE STATUS -Full code prognosis remains poor will need D/w with Heme onc regarding Prognosis /life expectancy /code status DISPOSITION Lives alone metastatic Cancer on palliative tx -intractable pain -will need rehab upon discharge PT/OT eval requested referral made for [facility] -D/w Daughter Katerina possible Tx to N next week when pain in better controlled, Follows with Dr. Gonzalez for primary care Vital Signs: Date Time Temp Pulse Resp B/P Pulse Ox O2 Delivery O2 Flow Rate FiO2 09/28/16 19:27 37.2 89 20 142/83 97 Room Air 09/28/16 16:00 94 Room Air 09/28/16 14:59 36.8 87 18 138/83 94 Room Air 09/28/16 11:40 36.6 88 16 131/82 96 09/28/16 08:24 36.7 81 16 142/74 95 09/28/16 08:00 Room Air 09/28/16 06:43 36.8 77 16 141/83 97 Room Air 09/28/16 04:09 36.9 87 18 148/82 97 Room Air 09/28/16 00:00 Room Air 09/27/16 23:26 36.7 83 20 117/76 95 Room Air 09/27/16 20:00 Room Air
[2016-09-27] MEDS: NORTRIPTYLINE HCL 10 MG CAP PO SCH (19:57)
[2016-09-27] MEDS: MONTELUKAST SOD 10 MG TAB PO SCH (19:57)
[2016-09-28] VITALS (8 sets, daily range): BP systolic 131–148; BP diastolic 74–86; PULSE 77–89; TEMP 36.5–37.2; O2SAT 94–97
[2016-09-28] MEDS: HYDROmorphone HCL 2 MG TAB PO PRN ×3 (02:20→15:42)
[2016-09-28] MEDS: DICLOFENAC SOD 1% GEL 100 GM TUBE EXT PRN (02:22)
[2016-09-28] MEDS: LEVOTHYROXINE 50 MCG TAB PO SCH (06:11)
[2016-09-28] MEDS: GABAPENTIN 300 MG CAP PO SCH ×3 (08:00→20:33)
[2016-09-28] MEDS: POLYETHYLENE (MIRALAX) 17 GM PACK PO SCH ×2 (08:00→20:32)
[2016-09-28] MEDS: CHECK FENTANYL PATCH PLACEMENT SCH ×3 (08:00→23:39)
[2016-09-28] MEDS: DOCUSATE SODIUM/SENNA 50/8.6MG TAB PO SCH (08:00)
[2016-09-28] MEDS: HYDROmorphone INJ 2 MG/ML SYR/VIAL IV PRN (09:03)
[2016-09-28] MEDS: WARFARIN SOD 5 MG TAB PO SCH (15:42)
[2016-09-28] MEDS: HYDROmorphone INJ 1 MG/ML SYR IV PRN ×2 (17:57→23:39)
[2016-09-28] MEDS: [UNRECOGNIZED DRUG - OTHER] PO SCH (17:58)
[2016-09-28] MEDS ORDERED: DLD2 PO (20:00)
[2016-09-28] MEDS ORDERED: DLC5 PO (20:00)
[2016-09-28] MEDS ORDERED: MOMLX PO (20:00)
--- NOTE | 2016-09-28 20:07 | Progress Note ---
Internal Med Progress Note Date of Service: Sep 28, 2016. Provider Documentation: SUBJECTIVE: had radiation tx today back is worse today , 12/26 mentions that prior to going down for Radiation tx she needs IV Dilaudid , can not tolerate Radiation tx with out IV pain meds PO pain meds needs long time and not as effective daughter present at bedside also worried about going to [facility] when she will still have few radiation tx remaining and without IV pain meds OBJECTIVE: Vital Signs-as noted below Exam: General- no sign of distress Lungs- clear breath sounds bilaterally, no rales /wheezes Heart- normal rate, regular rhythm; no murmur Abdomen- normal bowel sounds, non distended, soft, nontender Extremities- left lower leg: + ve edema , no erythema/ warmth, no tenderness right leg: essentially normal Neuro- alert, oriented x 3; no focal deficits Skin- warm & dry Lab data as noted below. 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 Joey Poon (daily on weekdays) no Radiation tx on Sat /Sun received # / radiation tx -pt is scheduled to have total 15 session of radiation tx has been getting high dose of radiation localized to left hip bone metastasis and mass symptomatically pt has shown improvement on her left hip and back pain since starting on radiation tx able to be OOB , bear wt while using walker appreciate Pain management recommendations - on Fentanyl to 100 daily Percocet changed to Dilaudid PO-dose increased to 4 mg PO Q 4hrs PRN for breakthrough pain Gabapentin to 300mgTID continue IV Dilaudid PRN, Nortriptyline cont bowel regimen to prevent Narcotic induced constipation Dilaudid PO dose increased to 4 mg Q2 hrs -as pt mentions -pain is not well controlled with q 4hrs interval needs IV Dilaudid prior to radiation tx , still has 5 more treatment does not want to go to rehab if she can not take IV meds for pain prior to treatment will update CM METASTATIC RENAL CELL CANCER -stage 4 with wide spread mets follows with Heme onc Dr Villagran -last office visit with Dr Villagran on 09/01/16 s/p left nephrectomy at [facility] [place] [place] on 08/07/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 Palliative external beam radiation tx to mets to left neck adenopathy and left hip s/p Left hip RAFAL surgery by Dr Gaona for femoral head mets pt started on Sutent by Dr Villagran PET scan on 09/02/16 which showed large soft tissue mets with mass effect upon the left psoas muscle, eroding the left iliac bone, and invading the left gluteal musculature with additional mass effect suggested to the left femoral vein and stable mildly prominent abdominal aorta lymph nodes -Radiation oncology consulted-getting palliative radiation tx Scheduled to see Dr Villagran on 10/04/16 Heme onc Consulted -appreciate input LLE DVT due to above patient has also had LLE swelling and calf pain x 3 weeks and was had LLE US positive for DVT on 09/08/16. She was started on Lovenox and Coumadin - completed Lovenox and Coumadin bridge therapy INR daily, continue Coumadin INR 1.7 today will start on Lovenox bridge for low INR D/C sub Q lovenox when INR ~2 - patient to be maintained on Coumadin life long as per Dr. Villagran ACUTE RENAL FAILURE, RESOLVED resolved - Likely pre renal secondary to volume depletion sec to inadequate PO intake, vomiting -Creatinine improved from 1.5 to 0.8 IV fluids discontinued D/c Lasix /ACEI HYPONATREMIA, LIKELY HYPOVOLEMIC - Na went down to 122, asymptomatic improved with IV fluid--> 135 - remains stable 135 D/angus IV NSS will D/c Fluid restriction -more risk for dehydration for radiation tx , poor appetite appreciate Nephro recommendations CONSTIPATION, Resolved likely narcotic induced - continue bowel regimen ANEMIA Hb 8.2 on presentation, -Transfused 2 units of PRBCS on 09/12/16 - HB remains stable STAGE 1 PRESSURE ULCER LEFT BUTTOCK Present on arrival -Wound care nurse consulted DVT PROPHYLAXIS -on Coumadin INR therapeutic CODE STATUS -Full code prognosis remains poor will need D/w with Heme onc regarding Prognosis /life expectancy /code status DISPOSITION Lives alone metastatic Cancer on palliative tx -intractable pain -will need rehab upon discharge PT/OT eval requested referral made for [facility] -D/w Daughter Katerina possible Tx to [facility] next week when pain in better controlled, Follows with Dr. Gonzalez for primary care Vital Signs: Date Time Temp Pulse Resp B/P Pulse Ox O2 Delivery O2 Flow Rate FiO2 09/28/16 19:27 37.2 89 20 142/83 97 Room Air 09/28/16 16:00 94 Room Air 09/28/16 14:59 36.8 87 18 138/83 94 Room Air 09/28/16 11:40 36.6 88 16 131/82 96 09/28/16 08:24 36.7 81 16 142/74 95 09/28/16 08:00 Room Air 09/28/16 06:43 36.8 77 16 141/83 97 Room Air 09/28/16 04:09 36.9 87 18 148/82 97 Room Air 09/28/16 00:00 Room Air 09/27/16 23:26 36.7 83 20 117/76 95 Room Air
[2016-09-28] MEDS ORDERED: ENOXAPARIN 1 MG/KG SQ SCH (20:15)
[2016-09-28] MEDS: MONTELUKAST SOD 10 MG TAB PO SCH (20:32)
[2016-09-28] MEDS: NORTRIPTYLINE HCL 10 MG CAP PO SCH (20:33)
[2016-09-28] MEDS: ENOXAPARIN 100 MG/1ML SYR SQ SCH (20:38)
[2016-09-29 03:34] VITALS: BP 135/82; PULSE 81; TEMP 36.7; O2SAT 96
[2016-09-29] MEDS: HYDROmorphone INJ 1 MG/ML SYR IV PRN ×5 (04:11→23:32)
[2016-09-29] MEDS: LEVOTHYROXINE 50 MCG TAB PO SCH (04:11)
[2016-09-29 07:13] VITALS: BP 147/79; PULSE 83; TEMP 36.6; O2SAT 97
[2016-09-29] MEDS: DOCUSATE SODIUM/SENNA 50/8.6MG TAB PO SCH (07:34)
[2016-09-29] MEDS: POLYETHYLENE (MIRALAX) 17 GM PACK PO SCH ×2 (07:34→19:41)
[2016-09-29] MEDS: ENOXAPARIN 100 MG/1ML SYR SQ SCH ×2 (07:34→19:41)
[2016-09-29] MEDS: CHECK FENTANYL PATCH PLACEMENT SCH ×3 (07:34→23:38)
[2016-09-29] MEDS: GABAPENTIN 300 MG CAP PO SCH ×3 (07:34→19:41)
[2016-09-29 07:51] LABS: INR 1.4 (0.9-1.1)
[2016-09-29] MEDS: FENTANYL 100 MCG/HR TDSY TD SCH (10:46)
[2016-09-29] MEDS: FENTANYL PATCH REMOVE & WASTE SCH (11:02)
[2016-09-29 11:34] VITALS: BP 145/82; PULSE 84; TEMP 36.9; O2SAT 94
[2016-09-29 15:11] VITALS: BP 148/81; PULSE 85; TEMP 36.8; O2SAT 94
[2016-09-29] MEDS: WARFARIN SOD 5 MG TAB PO SCH (15:42)
--- NOTE | 2016-09-29 16:04 | Progress Note ---
Internal Med Progress Note Date of Service: Sep 29, 2016. Provider Documentation: SUBJECTIVE: just came from radiation says she needs iv pain meds before she goes for radiation rtx says ambulated about 150feet with PT eating ok no sob OBJECTIVE: Vital Signs-as noted below Exam: General-alert and oriented. Not in distress ENT-normal hearing Neck-no neck masses Lungs-cta b/l no wheezing no crackles Heart-s1 and s2 heard, regular rate and rhythm no murmurs Abdomen-soft bowel sounds present tender in left hip region no distension Extremities-no edema no erythema Neuro-alert and awake moves extremities Lab data as noted below. 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 Joey Poon (daily on week) received # radiation tx Appreciate pain management inputs currently on fentanyl patch 100mcg Dilaudid 4mg po q4hrs prn nortriptyline and gabapentin iv Dilaudid prn says she is needing iv Dilaudid before going to radiation tx and concerned that iv meds are not given at [facility]. 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 ACUTE RENAL FAILURE, RESOLVED resolved D/c Lasix /ACEI HYPONATREMIA, LIKELY HYPOVOLEMIC Na went down to 122, asymptomatic improved with IV fluid--> 135 stopped fluids appreciate nephrology inputs na 135 f/u labs in am CONSTIPATION, Resolved likely narcotic induced Will continue bowel regimen ANEMIA Hb 8.2 on presentation, s/p prbc transfusion 2 units on 09/12/16 will f/u labs. STAGE 1 PRESSURE ULCER LEFT BUTTOCK Present on arrival Wound care nurse consulted DVT PROPHYLAXIS on Lovenox and coumadin CODE STATUS Full code DISPOSITION Lives alone metastatic Cancer on palliative tx -intractable pain referral made for [facility] Patient still needing iv pain meds Follows with Dr. Gonzalez for primary care Vital Signs: Date Time Temp Pulse Resp B/P Pulse Ox O2 Delivery O2 Flow Rate FiO2 09/29/16 15:11 36.8 85 20 148/81 94 Room Air 09/29/16 11:34 36.9 84 22 145/82 94 Room Air 09/29/16 08:00 Room Air 09/29/16 07:13 36.6 83 20 147/79 97 Room Air 09/29/16 03:34 36.7 81 18 135/82 96 Room Air 09/29/16 00:00 Room Air 09/28/16 23:21 36.5 80 16 133/86 97 Room Air 09/28/16 19:27 37.2 89 20 142/83 97 Room Air 09/28/16 16:00 94 Room Air Lab Results: Results Past 24 Hours Test 09/29/16 07:20 Range/Units Prothrombin Time 15.0 9.0-12.0 SECONDS Prothromb Time International Ratio 1.4 0.9-1.1
[2016-09-29] MEDS: [UNRECOGNIZED DRUG - OTHER] PO SCH (17:28)
[2016-09-29 19:28] VITALS: BP 146/87; PULSE 94; TEMP 36.8; O2SAT 96
[2016-09-29] MEDS: MONTELUKAST SOD 10 MG TAB PO SCH (19:41)
[2016-09-29] MEDS: NORTRIPTYLINE HCL 10 MG CAP PO SCH (19:41)
[2016-09-29 23:14] VITALS: BP 143/80; PULSE 78; TEMP 36.8; O2SAT 97
[2016-09-30] MEDS: HYDROmorphone INJ 1 MG/ML SYR IV PRN ×5 (03:10→21:41)
[2016-09-30 03:27] VITALS: BP 147/87; PULSE 84; TEMP 36.5; O2SAT 94
[2016-09-30 06:22] LABS: INR 1.4 (0.9-1.1); PROTHROMBIN TIME (PATIENT) 15.7 SECONDS (9.0-12.0)
[2016-09-30] MEDS: LEVOTHYROXINE 50 MCG TAB PO SCH (06:45)
[2016-09-30] MEDS: CHECK FENTANYL PATCH PLACEMENT SCH ×2 (07:32→15:35)
[2016-09-30] MEDS: POLYETHYLENE (MIRALAX) 17 GM PACK PO SCH ×2 (07:32→20:36)
[2016-09-30] MEDS: DOCUSATE SODIUM/SENNA 50/8.6MG TAB PO SCH (07:32)
[2016-09-30] MEDS: ENOXAPARIN 100 MG/1ML SYR SQ SCH ×2 (07:32→20:37)
[2016-09-30] MEDS: GABAPENTIN 300 MG CAP PO SCH ×3 (07:32→20:36)
[2016-09-30 07:34] VITALS: BP 144/83; PULSE 76; TEMP 36.4; O2SAT 97
[2016-09-30 11:15] VITALS: BP 147/87; PULSE 88; TEMP 36.7; O2SAT 95
[2016-09-30] MEDS ORDERED: ENALAPRIL MALEATE 5 MG TAB PO ONE (14:00)
[2016-09-30] MEDS: WARFARIN SOD 5 MG TAB PO SCH (15:35)
[2016-09-30 15:41] VITALS: BP 176/79; PULSE 87; TEMP 36.4; O2SAT 97
--- NOTE | 2016-09-30 17:20 | Progress Note ---
Internal Med Progress Note Date of Service: Sep 30, 2016. Provider Documentation: SUBJECTIVE: says hr BVP is up and she is not getting her BP meds ambulated ok with PT still requiring iv pain med prior to radiation eating ok no sob OBJECTIVE: Vital Signs-as noted below Exam: General-alert and oriented. Not in distress ENT-normal hearing Neck-no neck masses Lungs-cta b/l no wheezing no crackles Heart-s1 and s2 heard, regular rate and rhythm no murmurs Abdomen-soft bowel sounds present tender in left hip region no distension Extremities-no edema no erythema Neuro-alert and awake moves extremities Lab data as noted below. 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 Joey Poon (daily on week) received # radiation tx Appreciate pain management inputs currently on fentanyl patch 100mcg Dilaudid 4mg po q4hrs prn nortriptyline and gabapentin iv Dilaudid prn sill needing iv Dilaudid before going to radiation tx and concerned that iv meds are not given at [facility]. 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 ACUTE RENAL FAILURE, RESOLVED resolved D/c Lasix restarted Vasotec. HTN restarted Vasotec. will monitor HYPONATREMIA, LIKELY HYPOVOLEMIC Na went down to 122, asymptomatic improved with IV fluid--> 135 stopped fluids appreciate nephrology inputs na 135 f/u labs in am CONSTIPATION, Resolved likely narcotic induced Will continue bowel regimen ANEMIA Hb 8.2 on presentation, s/p prbc transfusion 2 units on 09/12/16 will f/u labs. STAGE 1 PRESSURE ULCER LEFT BUTTOCK Present on arrival Wound care nurse consulted DVT PROPHYLAXIS on Lovenox and coumadin CODE STATUS Full code DISPOSITION Lives alone metastatic Cancer on palliative tx -intractable pain referral made for [facility] Patient still needing iv pain meds Follows with Dr. Gonzalez for primary care Vital Signs: Date Time Temp Pulse Resp B/P Pulse Ox O2 Delivery O2 Flow Rate FiO2 09/30/16 16:00 Room Air 09/30/16 15:41 36.4 87 20 176/79 97 Room Air 09/30/16 11:15 36.7 88 20 147/87 95 Room Air 09/30/16 08:00 Room Air 09/30/16 07:34 36.4 76 18 144/83 97 Room Air 09/30/16 03:27 36.5 84 16 147/87 94 Room Air 09/30/16 00:18 Room Air 09/29/16 23:14 36.8 78 16 143/80 97 Room Air 09/29/16 20:45 Room Air 09/29/16 19:28 36.8 94 18 146/87 96 Room Air Lab Results: Results Past 24 Hours Test 09/30/16 05:41 Range/Units Prothrombin Time 15.7 9.0-12.0 SECONDS Prothromb Time International Ratio 1.4 0.9-1.1
[2016-09-30] MEDS: [UNRECOGNIZED DRUG - OTHER] PO SCH (17:32)
[2016-09-30 20:27] VITALS: BP 136/83; PULSE 91; TEMP 37.1; O2SAT 96
[2016-09-30] MEDS: MONTELUKAST SOD 10 MG TAB PO SCH (20:36)
[2016-09-30] MEDS: NORTRIPTYLINE HCL 10 MG CAP PO SCH (20:36)
[2016-10-01] VITALS (13 sets, daily range): BP systolic 112–155; BP diastolic 73–87; PULSE 78–91; TEMP 36.3–37; O2SAT 93–98
[2016-10-01] MEDS: CHECK FENTANYL PATCH PLACEMENT SCH ×4 (00:46→23:24)
[2016-10-01] MEDS: HYDROmorphone INJ 1 MG/ML SYR IV PRN ×4 (02:20→19:39)
[2016-10-01] MEDS: LEVOTHYROXINE 50 MCG TAB PO SCH (06:10)
[2016-10-01 06:33] LABS: BASO % 0.6 %; BASO ABS # 0.02 K/uL (0-0.2); EOS % 8.1 %; HEMATOCRIT 25.4 % (37-47); IG% 0.3 %; LYMPH % 12.2 %; LYMPH ABS # 0.42 K/uL (1.2-3.4); MEAN CELL VOLUME 84.4 fL (80-100); MEAN CORPUSCULAR HEMOGLOBIN 25.9 pg (25-34); MEAN CORPUSCULAR HGB CONC 30.7 g/dl (32-36); MEAN PLATELET VOLUME 8.2 fL (7.4-10.4); NEUT % 71.8 %; PLATELET COUNT 336 K/uL (130-400); RED BLOOD COUNT 3.01 M/uL (4.2-5.4); WHITE BLOOD COUNT 3.45 K/uL (4.8-10.8)
[2016-10-01 06:38] LABS: INR 1.4 (0.9-1.1); PROTHROMBIN TIME (PATIENT) 15.1 SECONDS (9.0-12.0)
[2016-10-01 07:08] LABS: BUN/CREATININE RATIO 13.2 (10-20); CALCIUM 8.8 mg/dl (8.5-10.1); CREATININE 0.78 mg/dl (0.60-1.20); POTASSIUM 4.4 mmol/L (3.5-5.1)
[2016-10-01 07:32] LABS: COMPLETE YES
[2016-10-01] MEDS: POLYETHYLENE (MIRALAX) 17 GM PACK PO SCH ×2 (09:18→21:12)
[2016-10-01] MEDS: DOCUSATE SODIUM/SENNA 50/8.6MG TAB PO SCH (09:19)
[2016-10-01] MEDS: GABAPENTIN 300 MG CAP PO SCH ×3 (09:19→21:11)
[2016-10-01] MEDS: ENOXAPARIN 100 MG/1ML SYR SQ SCH ×2 (09:22→21:11)
[2016-10-01] MEDS: ENALAPRIL MALEATE 10 MG TAB PO SCH (09:27)
--- NOTE | 2016-10-01 16:12 | Progress Note ---
Internal Med Progress Note Date of Service: Oct 01, 2016. Provider Documentation: SUBJECTIVE: eating ok ambulating fine moved bowels still requiring iv pain meds prior to radiation patient says her radiation tx were extended to 20 tx from 15. OBJECTIVE: Vital Signs-as noted below Exam: General-alert and oriented. Not in distress ENT-normal hearing Neck-no neck masses Lungs-cta b/l no wheezing no crackles Heart-s1 and s2 heard, regular rate and rhythm no murmurs Abdomen-soft bowel sounds present tender in left hip region no distension Extremities-no edema no erythema Neuro-alert and awake moves extremities Lab data as noted below. 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 Joey Poon (daily on weekdays) received # radiation tx Appreciate pain management inputs currently on fentanyl patch 100mcg Dilaudid 4mg po q4hrs prn nortriptyline and gabapentin iv Dilaudid prn sill needing iv Dilaudid before going to radiation tx and concerned that iv meds are not given at [facility]. 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 ACUTE RENAL FAILURE, RESOLVED resolved D/c Lasix restarted Vasotec. HTN restarted Vasotec. will monitor HYPONATREMIA, LIKELY HYPOVOLEMIC Na went down to 122, asymptomatic improved with IV fluid--> 135 stopped fluids appreciate nephrology inputs na 135 today f/u labs CONSTIPATION, Resolved likely narcotic induced Will continue bowel regimen ANEMIA Hb 8.2 on presentation, s/p prbc transfusion 2 units on 09/12/16 hb 7.8 today asymptomatic stool for Hemoccult will f/u labs in am STAGE 1 PRESSURE ULCER LEFT BUTTOCK Present on arrival Wound care nurse consulted DVT PROPHYLAXIS on Lovenox and Coumadin CODE STATUS Full code DISPOSITION Lives alone metastatic Cancer on palliative tx -intractable pain referral made for [facility] Patient still needing iv pain meds Follows with Dr. Gonzalez for primary care Vital Signs: Date Time Temp Pulse Resp B/P Pulse Ox O2 Delivery O2 Flow Rate FiO2 10/01/16 15:49 36.7 85 16 155/87 97 Room Air 10/01/16 11:20 36.8 88 12 112/73 95 Room Air 10/01/16 07:20 Room Air 10/01/16 07:16 36.7 78 14 131/80 95 Room Air 10/01/16 07:15 Room Air 10/01/16 04:33 36.6 80 16 116/74 95 Room Air 10/01/16 00:27 36.5 86 16 130/79 96 Room Air 10/01/16 00:01 Room Air 09/30/16 20:27 37.1 91 18 136/83 96 Room Air 09/30/16 19:30 Room Air Lab Results: Results Past 24 Hours Test 10/01/16 05:50 Range/Units White Blood Count 3.45 4.8-10.8 K/uL Red Blood Count 3.01 4.2-5.4 M/uL Hemoglobin 7.8 12.0-16.0 g/dL Hematocrit 25.4 37-47 % Mean Corpuscular Volume 84.4 80-100 fL Mean Corpuscular Hemoglobin 25.9 25-34 pg Mean Corpuscular Hemoglobin Concent 30.7 32-36 g/dl Platelet Count 336 130-400 K/uL Mean Platelet Volume 8.2 7.4-10.4 fL Neutrophils (%) (Auto) 71.8 % Lymphocytes (%) (Auto) 12.2 % Monocytes (%) (Auto) 7.0 % Eosinophils (%) (Auto) 8.1 % Basophils (%) (Auto) 0.6 % Neutrophils # (Auto) 2.48 1.4-6.5 K/uL Lymphocytes # (Auto) 0.42 1.2-3.4 K/uL Monocytes # (Auto) 0.24 0.11-0.59 K/uL Eosinophils # (Auto) 0.28 0-0.5 K/uL Basophils # (Auto) 0.02 0-0.2 K/uL RDW Standard Deviation 60.4 36.4-46.3 fL RDW Coefficient of Variation 19.8 11.5-14.5 % Immature Granulocyte % (Auto) 0.3 % Immature Granulocyte # (Auto) 0.01 0.00-0.02 K/uL Red Blood Cell Morphology Unremarkable Prothrombin Time 15.1 9.0-12.0 SECONDS Prothromb Time International Ratio 1.4 0.9-1.1 Sodium Level 135 136-145 mmol/L Potassium Level 4.4 3.5-5.1 mmol/L Chloride Level 98 98-107 mmol/L Carbon Dioxide Level 28 21-32 mmol/L Anion Gap 9.0 3-11 mmol/L Blood Urea Nitrogen 10 7-18 mg/dl Creatinine 0.78 0.60-1.20 mg/dl Est Creatinine Clear Calc Drug Dose 72.6 ml/min Estimated GFR () 88.0 Estimated GFR (Non- 76.0 BUN/Creatinine Ratio 13.2 10-20 Random Glucose 88 70-99 mg/dl Calcium Level 8.8 8.5-10.1 mg/dl
[2016-10-01] MEDS: WARFARIN SOD 1 MG TAB PO SCH (16:53)
[2016-10-01] MEDS: WARFARIN SOD 6 MG TAB PO SCH (16:54)
[2016-10-01] MEDS: [UNRECOGNIZED DRUG - OTHER] PO SCH (18:24)
[2016-10-01] MEDS: MONTELUKAST SOD 10 MG TAB PO SCH (21:11)
[2016-10-01] MEDS: NORTRIPTYLINE HCL 10 MG CAP PO SCH (21:12)
[2016-10-02] VITALS (7 sets, daily range): BP systolic 121–160; BP diastolic 73–90; PULSE 75–88; TEMP 36.6–37; O2SAT 94–99
[2016-10-02] MEDS: HYDROmorphone INJ 1 MG/ML SYR IV PRN ×4 (01:12→19:57)
[2016-10-02 06:14] LABS: HEMATOCRIT 27.8 % (37-47); MEAN CELL VOLUME 85.5 fL (80-100); MEAN CORPUSCULAR HEMOGLOBIN 27.1 pg (25-34); MEAN CORPUSCULAR HGB CONC 31.7 g/dl (32-36); MEAN PLATELET VOLUME 8.1 fL (7.4-10.4); PLATELET COUNT 284 K/uL (130-400); RED BLOOD COUNT 3.25 M/uL (4.2-5.4); WHITE BLOOD COUNT 2.82 K/uL (4.8-10.8)
[2016-10-02 06:22] LABS: INR 1.4 (0.9-1.1); PROTHROMBIN TIME (PATIENT) 15.2 SECONDS (9.0-12.0)
[2016-10-02] MEDS: LEVOTHYROXINE 50 MCG TAB PO SCH (06:25)
[2016-10-02 06:48] LABS: CREATININE 0.76 mg/dl (0.60-1.20)
[2016-10-02] MEDS: CHECK FENTANYL PATCH PLACEMENT SCH ×2 (07:37→15:12)
[2016-10-02] MEDS: POLYETHYLENE (MIRALAX) 17 GM PACK PO SCH ×2 (07:37→20:03)
[2016-10-02] MEDS: GABAPENTIN 300 MG CAP PO SCH ×3 (07:37→20:06)
[2016-10-02] MEDS: ENALAPRIL MALEATE 10 MG TAB PO SCH (07:37)
[2016-10-02] MEDS: DOCUSATE SODIUM/SENNA 50/8.6MG TAB PO SCH (07:37)
[2016-10-02] MEDS: ENOXAPARIN 100 MG/1ML SYR SQ SCH ×2 (07:38→20:06)
[2016-10-02] MEDS: FENTANYL 100 MCG/HR TDSY TD SCH (10:48)
[2016-10-02] MEDS: FENTANYL PATCH REMOVE & WASTE SCH (10:51)
[2016-10-02] MEDS: HYDROmorphone HCL 2 MG TAB PO PRN (12:37)
[2016-10-02] MEDS: WARFARIN SOD 1 MG TAB PO SCH (15:11)
[2016-10-02] MEDS: WARFARIN SOD 6 MG TAB PO SCH (15:12)
[2016-10-02] MEDS: DICLOFENAC SOD 1% GEL 100 GM TUBE EXT PRN ×2 (15:14→20:06)
--- NOTE | 2016-10-02 15:19 | Progress Note ---
Internal Med Progress Note Date of Service: Oct 02, 2016. Provider Documentation: SUBJECTIVE: patient and the daughter upset her iv Dilaudid has been stopped eating ok ambulating in hallway with PT moving bowels ok afebrile OBJECTIVE: Vital Signs-as noted below Exam: General-alert and oriented. Not in distress ENT-normal hearing Neck-no neck masses Lungs-cta b/l no wheezing no crackles Heart-s1 and s2 heard, regular rate and rhythm no murmurs Abdomen-soft bowel sounds present tender in left hip region no distension Extremities-no edema no erythema Neuro-alert and awake moves extremities Lab data as noted below. 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 Joey Poon (daily on week) received # radiation tx Appreciate pain management inputs currently on fentanyl patch 100mcg Dilaudid 4mg po q4hrs prn nortriptyline and gabapentin iv Dilaudid prn still needing iv Dilaudid before going to radiation tx and concerned that iv meds are not given at [facility]. 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 ACUTE RENAL FAILURE, RESOLVED resolved D/c Lasix restarted Vasotec. HTN restarted Vasotec. will monitor HYPONATREMIA, LIKELY HYPOVOLEMIC Na went down to 122, asymptomatic improved with IV fluid--> 135 stopped fluids appreciate nephrology inputs na 135 today f/u labs CONSTIPATION, Resolved likely narcotic induced Will continue bowel regimen ANEMIA Hb 8.2 on presentation, s/p prbc transfusion 2 units on 09/12/16 hb 7.8 10/01/16 asymptomatic stool for Hemoccult s/p one more unit prbc transfused hb 8.8 today will f/u labs in am STAGE 1 PRESSURE ULCER LEFT BUTTOCK Present on arrival Wound care nurse consulted DVT PROPHYLAXIS on Lovenox and Coumadin CODE STATUS Full code DISPOSITION Lives alone metastatic Cancer on palliative tx -intractable pain referral made for [facility] Patient still needing iv pain meds Follows with Dr. Gonzalez for primary care Vital Signs: Date Time Temp Pulse Resp B/P Pulse Ox O2 Delivery O2 Flow Rate FiO2 10/02/16 11:29 36.6 88 18 152/82 95 Room Air 10/02/16 07:15 Room Air 0.0 10/02/16 07:06 36.6 76 20 150/83 99 Room Air 10/02/16 04:19 36.6 75 20 129/83 97 Room Air 10/02/16 00:05 36.6 79 18 124/84 96 10/02/16 00:00 Room Air 10/01/16 23:05 36.6 82 18 130/80 95 10/01/16 22:35 36.6 79 18 132/82 97 10/01/16 22:05 36.3 80 18 116/78 97 10/01/16 21:50 36.6 81 18 129/79 97 10/01/16 21:30 36.8 86 16 124/78 97 10/01/16 21:16 37.0 86 18 121/74 93 0.0 10/01/16 20:20 37.0 91 16 117/79 98 Room Air 10/01/16 16:00 Room Air 10/01/16 15:49 36.7 85 16 155/87 97 Room Air Lab Results: Results Past 24 Hours Test 10/02/16 05:52 10/02/16 11:45 Range/Units White Blood Count 2.82 4.8-10.8 K/uL Red Blood Count 3.25 4.2-5.4 M/uL Hemoglobin 8.8 12.0-16.0 g/dL Hematocrit 27.8 37-47 % Mean Corpuscular Volume 85.5 80-100 fL Mean Corpuscular Hemoglobin 27.1 25-34 pg Mean Corpuscular Hemoglobin Concent 31.7 32-36 g/dl RDW Standard Deviation 57.4 36.4-46.3 fL RDW Coefficient of Variation 18.6 11.5-14.5 % Platelet Count 284 130-400 K/uL Mean Platelet Volume 8.1 7.4-10.4 fL Prothrombin Time 15.2 9.0-12.0 SECONDS Prothromb Time International Ratio 1.4 0.9-1.1 Creatinine 0.76 0.60-1.20 mg/dl Est Creatinine Clear Calc Drug Dose 74.4 ml/min Estimated GFR () 90.8 Estimated GFR (Non- 78.4 Stool Occult Blood NEGATIVE NEGATIVE
[2016-10-02] MEDS: [UNRECOGNIZED DRUG - OTHER] PO SCH (17:26)
[2016-10-02] MEDS: MONTELUKAST SOD 10 MG TAB PO SCH (20:05)
[2016-10-02] MEDS: NORTRIPTYLINE HCL 10 MG CAP PO SCH (20:06)
[2016-10-03] MEDS: CHECK FENTANYL PATCH PLACEMENT SCH ×4 (00:15→23:42)
[2016-10-03] MEDS: HYDROmorphone INJ 1 MG/ML SYR IV PRN ×2 (03:17→10:55)
[2016-10-03 06:12] LABS: INR 1.4 (0.9-1.1); PROTHROMBIN TIME (PATIENT) 15.6 SECONDS (9.0-12.0)
[2016-10-03] MEDS: LEVOTHYROXINE 50 MCG TAB PO SCH (06:18)
[2016-10-03 07:06] VITALS: BP 144/82; PULSE 77; TEMP 36.8; O2SAT 98
[2016-10-03] MEDS: GABAPENTIN 300 MG CAP PO SCH ×3 (07:45→20:44)
[2016-10-03] MEDS: POLYETHYLENE (MIRALAX) 17 GM PACK PO SCH ×2 (07:45→20:43)
[2016-10-03] MEDS: ENALAPRIL MALEATE 10 MG TAB PO SCH (07:45)
[2016-10-03] MEDS: DOCUSATE SODIUM/SENNA 50/8.6MG TAB PO SCH (07:45)
[2016-10-03] MEDS: ENOXAPARIN 100 MG/1ML SYR SQ SCH ×2 (07:46→20:44)
[2016-10-03 11:38] VITALS: BP 118/77; PULSE 83; TEMP 36.7; O2SAT 97
[2016-10-03] MEDS: HYDROmorphone HCL 2 MG TAB PO PRN ×2 (13:27→15:33)
[2016-10-03 15:27] VITALS: BP 125/80; PULSE 82; TEMP 36.5; O2SAT 98
[2016-10-03 15:30] VITALS: O2SAT 98
[2016-10-03] MEDS: WARFARIN SOD 6 MG TAB PO SCH (15:35)
[2016-10-03] MEDS: WARFARIN SOD 1 MG TAB PO SCH (15:35)
--- NOTE | 2016-10-03 17:24 | Progress Note ---
Internal Med Progress Note Date of Service: Oct 03, 2016. Provider Documentation: SUBJECTIVE: requesting to up the Dilaudid ambulating fine eating ok daughters in room and saying she cannot be discharged to rehab until she doesn' t require iv pain meds OBJECTIVE: Vital Signs-as noted below Exam: General-alert and oriented. Not in distress ENT-normal hearing Neck-no neck masses Lungs-cta b/l no wheezing no crackles Heart-s1 and s2 heard, regular rate and rhythm no murmurs Abdomen-soft bowel sounds present tender in left hip region no distension Extremities-no edema no erythema Neuro-alert and awake moves extremities Lab data as noted below. 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 Joey Poon (daily on week) received # radiation tx Appreciate pain management inputs currently on fentanyl patch 100mcg Dilaudid 4mg po q4hrs prn nortriptyline and gabapentin iv Dilaudid prn still needing iv Dilaudid before going to radiation tx and concerned that iv meds are not given at [facility]. 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 ANEMIA Hb 8.2 on presentation, s/p prbc transfusion 2 units on 09/12/16 hb 7.8 10/01/16 asymptomatic stool for Hemoccult s/p one more unit prbc transfused hb 8.8 will f/u labs in am stable conditions: ACUTE RENAL FAILURE, RESOLVED resolved D/c Lasix restarted Vasotec. HTN restarted Vasotec. will monitor HYPONATREMIA, LIKELY HYPOVOLEMIC Na went down to 122, asymptomatic improved with IV fluid--> 135 stopped fluids appreciate nephrology inputs na 135 today f/u labs CONSTIPATION, Resolved likely narcotic induced Will continue bowel regimen STAGE 1 PRESSURE ULCER LEFT BUTTOCK Present on arrival Wound care nurse consulted DVT PROPHYLAXIS on Lovenox and Coumadin CODE STATUS Full code DISPOSITION Lives alone metastatic Cancer on palliative tx -intractable pain [facility] Patient still needing iv pain meds Follows with Dr. Gonzalez for primary care Vital Signs: Date Time Temp Pulse Resp B/P Pulse Ox O2 Delivery O2 Flow Rate FiO2 10/03/16 15:30 98 Room Air 10/03/16 15:27 36.5 82 18 125/80 98 Room Air 10/03/16 11:38 36.7 83 18 118/77 97 Room Air 10/03/16 08:00 Room Air 10/03/16 07:06 36.8 77 20 144/82 98 Room Air 10/03/16 00:00 Room Air 10/02/16 23:07 36.8 85 18 121/73 95 Room Air 10/02/16 20:26 37.0 88 16 160/90 96 Room Air 10/02/16 20:00 Room Air Lab Results: Results Past 24 Hours Test 10/03/16 05:36 Range/Units Prothrombin Time 15.6 9.0-12.0 SECONDS Prothromb Time International Ratio 1.4 0.9-1.1
[2016-10-03] MEDS ORDERED: WARFARIN SOD 4 MG TAB PO ONE (17:30)
[2016-10-03] MEDS ORDERED: HYDROmorphone INJ 1 MG/ML SYR IV STA (17:57)
[2016-10-03] MEDS: [UNRECOGNIZED DRUG - OTHER] PO SCH (18:20)
[2016-10-03 19:22] VITALS: BP 144/87; PULSE 85; TEMP 36.8; O2SAT 95
[2016-10-03] MEDS: NORTRIPTYLINE HCL 10 MG CAP PO SCH (20:44)
[2016-10-03] MEDS: MONTELUKAST SOD 10 MG TAB PO SCH (20:45)
[2016-10-03 23:20] VITALS: BP 132/80; PULSE 79; TEMP 36.7; O2SAT 92
[2016-10-04] VITALS (8 sets, daily range): BP systolic 144–176; BP diastolic 73–90; PULSE 77–94; TEMP 36.5–37; O2SAT 97–99
[2016-10-04] MEDS: HYDROmorphone INJ 1 MG/ML SYR IV PRN ×4 (00:54→19:28)
[2016-10-04] MEDS: LEVOTHYROXINE 50 MCG TAB PO SCH (05:54)
[2016-10-04 06:07] LABS: BASO % 0.7 %; BASO ABS # 0.02 K/uL (0-0.2); EOS % 11.1 %; IG% 0.7 %; LYMPH % 11.1 %; LYMPH ABS # 0.34 K/uL (1.2-3.4); MEAN CELL VOLUME 85.5 fL (80-100); MEAN CORPUSCULAR HEMOGLOBIN 26.6 pg (25-34); MEAN CORPUSCULAR HGB CONC 31.2 g/dl (32-36); MONO % 8.2 %; NEUT % 68.2 %; PLATELET COUNT 258 K/uL (130-400); RED BLOOD COUNT 3.04 M/uL (4.2-5.4); WHITE BLOOD COUNT 3.06 K/uL (4.8-10.8)
[2016-10-04 06:19] LABS: INR 1.6 (0.9-1.1); PROTHROMBIN TIME (PATIENT) 17.4 SECONDS (9.0-12.0)
[2016-10-04 06:30] LABS: COMPLETE YES
[2016-10-04 06:44] LABS: BUN/CREATININE RATIO 13.8 (10-20); CALCIUM 8.3 mg/dl (8.5-10.1); CREATININE 0.61 mg/dl (0.60-1.20); POTASSIUM 4.3 mmol/L (3.5-5.1)
[2016-10-04] MEDS: DOCUSATE SODIUM/SENNA 50/8.6MG TAB PO SCH (07:53)
[2016-10-04] MEDS: GABAPENTIN 300 MG CAP PO SCH ×3 (07:53→20:28)
[2016-10-04] MEDS: ENALAPRIL MALEATE 10 MG TAB PO SCH (07:54)
[2016-10-04] MEDS: CHECK FENTANYL PATCH PLACEMENT SCH ×2 (07:54→16:18)
[2016-10-04] MEDS: ENOXAPARIN 100 MG/1ML SYR SQ SCH ×2 (07:54→20:32)
[2016-10-04] MEDS: POLYETHYLENE (MIRALAX) 17 GM PACK PO SCH ×2 (07:54→20:27)
[2016-10-04] MEDS: DICLOFENAC SOD 1% GEL 100 GM TUBE EXT PRN (07:57)
--- NOTE | 2016-10-04 15:27 | Progress Note ---
Internal Med Progress Note Date of Service: Oct 04, 2016. Provider Documentation: SUBJECTIVE: says pain is controlled with pain meds afebrile eating ok 'ambulating fine moved bowels twice today OBJECTIVE: Vital Signs-as noted below Exam: General-alert and oriented. Not in distress ENT-normal hearing Neck-no neck masses Lungs-cta b/l no wheezing no crackles Heart-s1 and s2 heard, regular rate and rhythm no murmurs Abdomen-soft bowel sounds present tender in left hip region no distension Extremities-no edema no erythema Neuro-alert and awake moves extremities Lab data as noted below. ASSESSMENT & PLAN: 71 year old female with PMH of 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 Radiation tx was initiated. Seen by pain management.Oncology started on Sutent and followup as out patient. Patient developed hyponatremia which improved with fluids.Plan for rehab but patient still requiring iv pain meds.Patient and family thinks she should be in hospital until she finishes radiation tx. Reconsulted pain management to help with pain .Possible d/c to rehab early next week. 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 Joey Poon (daily on week) received # radiation tx Appreciate pain management inputs currently on fentanyl patch 100mcg Dilaudid 4mg po q4hrs prn nortriptyline and gabapentin iv Dilaudid prn still needing iv Dilaudid before going to radiation tx and concerned that iv meds are not given at [facility]. 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 ANEMIA Hb 8.2 on presentation, s/p prbc transfusion 2 units on 09/12/16 hb 7.8 10/01/16 asymptomatic stool for Hemoccult s/p one more unit prbc transfused 10/01/16 hb 8.1 will f/u labs in am stable conditions: ACUTE RENAL FAILURE, RESOLVED resolved D/c Lasix restarted Vasotec. HTN restarted Vasotec. will monitor HYPONATREMIA, LIKELY HYPOVOLEMIC Na went down to 122, asymptomatic improved with IV fluid--> 135 stopped fluids appreciate nephrology inputs na 136 today f/u labs CONSTIPATION, Resolved likely narcotic induced Will continue bowel regimen STAGE 1 PRESSURE ULCER LEFT BUTTOCK Present on arrival Wound care nurse consulted DVT PROPHYLAXIS on Lovenox and Coumadin CODE STATUS Full code DISPOSITION Lives alone metastatic Cancer on palliative tx -intractable pain plan for [facility] Patient still needing iv pain meds Follows with Dr. Gonzalez for primary care Vital Signs: Date Time Temp Pulse Resp B/P Pulse Ox O2 Delivery O2 Flow Rate FiO2 10/04/16 11:37 36.8 86 18 146/73 97 Room Air 10/04/16 08:00 Room Air 10/04/16 07:06 36.6 80 20 154/78 98 Room Air 10/04/16 03:42 36.5 77 20 144/82 97 Room Air 10/04/16 00:01 Room Air 10/03/16 23:20 36.7 79 20 132/80 92 Room Air 10/03/16 19:22 36.8 85 16 144/87 95 Room Air 10/03/16 15:30 98 Room Air 10/03/16 15:27 36.5 82 18 125/80 98 Room Air Lab Results: Results Past 24 Hours Test 10/04/16 05:20 10/04/16 05:30 Range/Units Prothrombin Time 17.4 9.0-12.0 SECONDS Prothromb Time International Ratio 1.6 0.9-1.1 White Blood Count 3.06 4.8-10.8 K/uL Red Blood Count 3.04 4.2-5.4 M/uL Hemoglobin 8.1 12.0-16.0 g/dL Hematocrit 26.0 37-47 % Mean Corpuscular Volume 85.5 80-100 fL Mean Corpuscular Hemoglobin 26.6 25-34 pg Mean Corpuscular Hemoglobin Concent 31.2 32-36 g/dl Platelet Count 258 130-400 K/uL Mean Platelet Volume 8.0 7.4-10.4 fL Neutrophils (%) (Auto) 68.2 % Lymphocytes (%) (Auto) 11.1 % Monocytes (%) (Auto) 8.2 % Eosinophils (%) (Auto) 11.1 % Basophils (%) (Auto) 0.7 % Neutrophils # (Auto) 2.09 1.4-6.5 K/uL Lymphocytes # (Auto) 0.34 1.2-3.4 K/uL Monocytes # (Auto) 0.25 0.11-0.59 K/uL Eosinophils # (Auto) 0.34 0-0.5 K/uL Basophils # (Auto) 0.02 0-0.2 K/uL RDW Standard Deviation 58.7 36.4-46.3 fL RDW Coefficient of Variation 19.2 11.5-14.5 % Immature Granulocyte % (Auto) 0.7 % Immature Granulocyte # (Auto) 0.02 0.00-0.02 K/uL Red Blood Cell Morphology Unremarkable Sodium Level 136 136-145 mmol/L Potassium Level 4.3 3.5-5.1 mmol/L Chloride Level 101 98-107 mmol/L Carbon Dioxide Level 27 21-32 mmol/L Anion Gap 8.0 3-11 mmol/L Blood Urea Nitrogen 8 7-18 mg/dl Creatinine 0.61 0.60-1.20 mg/dl Est Creatinine Clear Calc Drug Dose 92.8 ml/min Estimated GFR () 105.0 Estimated GFR (Non- 90.6 BUN/Creatinine Ratio 13.8 10-20 Random Glucose 93 70-99 mg/dl Calcium Level 8.3 8.5-10.1 mg/dl
[2016-10-04] MEDS ORDERED: CHECK FENTANYL PATCH PLACEMENT SCH (16:00)
[2016-10-04] MEDS: WARFARIN SOD 5 MG TAB PO SCH (16:17)
[2016-10-04] MEDS: [UNRECOGNIZED DRUG - OTHER] PO SCH (18:36)
[2016-10-04] MEDS: MONTELUKAST SOD 10 MG TAB PO SCH (20:27)
[2016-10-04] MEDS: NORTRIPTYLINE HCL 10 MG CAP PO SCH (20:27)
[2016-10-05] MEDS: CHECK FENTANYL PATCH PLACEMENT SCH ×3 (00:28→16:26)
[2016-10-05] MEDS: HYDROmorphone INJ 1 MG/ML SYR IV PRN ×2 (01:06→07:26)
[2016-10-05 04:01] VITALS: BP 144/81; PULSE 79; TEMP 36.3; O2SAT 97
[2016-10-05] MEDS: LEVOTHYROXINE 50 MCG TAB PO SCH (05:38)
[2016-10-05 06:03] LABS: MEAN CELL VOLUME 85.6 fL (80-100); MEAN CORPUSCULAR HEMOGLOBIN 26.6 pg (25-34); MEAN CORPUSCULAR HGB CONC 31.1 g/dl (32-36); MEAN PLATELET VOLUME 8.1 fL (7.4-10.4); PLATELET COUNT 265 K/uL (130-400); RED BLOOD COUNT 3.27 M/uL (4.2-5.4); WHITE BLOOD COUNT 2.81 K/uL (4.8-10.8)
[2016-10-05 06:08] LABS: PROTHROMBIN TIME (PATIENT) 22.2 SECONDS (9.0-12.0)
[2016-10-05 06:33] LABS: CREATININE 0.72 mg/dl (0.60-1.20)
[2016-10-05 07:09] VITALS: BP 158/87; PULSE 82; TEMP 36.6; O2SAT 99
[2016-10-05] MEDS: ENALAPRIL MALEATE 10 MG TAB PO SCH (07:25)
[2016-10-05] MEDS: GABAPENTIN 300 MG CAP PO SCH ×3 (07:25→21:11)
[2016-10-05] MEDS: ENOXAPARIN 100 MG/1ML SYR SQ SCH ×2 (07:25→21:10)
[2016-10-05] MEDS: DOCUSATE SODIUM/SENNA 50/8.6MG TAB PO SCH (07:26)
[2016-10-05] MEDS: POLYETHYLENE (MIRALAX) 17 GM PACK PO SCH ×2 (07:26→21:08)
[2016-10-05 08:41] VITALS: BP 169/82; PULSE 88; TEMP 37; O2SAT 96
[2016-10-05] MEDS: FENTANYL 100 MCG/HR TDSY TD SCH (10:10)
[2016-10-05] MEDS: FENTANYL PATCH REMOVE & WASTE SCH (10:10)
[2016-10-05] MEDS ORDERED: HYDROmorphone INJ 1 MG/ML SYR IV PRN (10:29)
--- NOTE | 2016-10-05 10:47 | Progress Note ---
Medicine Progress Note Date & Time of Visit: Oct 05, 2016 at 10:31. 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, recently diagnosed with LLE DVT admitted for worsening back and hip pain -back/hip pain improved since admission -transition to PO pain meds attempted two days ago, per nurse patient's pain was well-controlled, however, daughter intervened and demanded IV Dilaudid be given for breatkthrough -Pain reconsulted to assist with this transition--likely will see her today -Pt is eating well and ambulating with assistance -denies pain anywhere else and is otherwise asymptomatic. Objective Last 8 Hrs Date Time Temp Pulse Resp B/P Pulse Ox O2 Delivery O2 Flow Rate FiO2 10/05/16 08:41 37.0 88 16 169/82 96 10/05/16 08:00 Room Air 10/05/16 07:09 36.6 82 20 158/87 99 Room Air 10/05/16 04:01 36.3 79 20 144/81 97 Room Air Physical Exam: GEN: WNWD, in no acute distress, alert and appropriate HEENT: NC/AT, normal sclerae CARDIO: reg rate, S1/2 heard without m/g/r LUNGS: CTA bilaterally, no crackles, rales or wheezes, good diaphragmatic excursion ABD: soft, non-tender, non-distended, no rebound or guarding, +BS EXTREMITY: No LE swelling or edema, extremities are warm and well-perfused NEURO: CN 2-12 grossly intact, sensation intact throughout MUSC: 5/5 strength throughout, no gross focal deficits, gait not assessed SKIN: warm and dry Laboratory Results: 10/05/16 05:30 10/04/16 05:30 10/05/16 05:30 Test 09/11/16 09:15 09/12/16 06:15 09/14/16 09:42 09/14/16 12:04 Activated Partial Thromboplast Time 39.9 SECONDS (21.0-31.0) Partial Thromboplastin Ratio 1.5 Heparin Anti-Xa Act, Low Molec Wt 1.54 IU/ML (0 - <0.10) Magnesium Level 2.0 mg/dl (1.8-2.4) Urine WBC (Auto) 10-30 /hpf (0-5) Urine RBC (Auto) 0-4 /hpf (0-4) Urine Hyaline Casts (Auto) 0 /lpf (0-5) Urine Epithelial Cells (Auto) 0-5 /lpf (0-5) Urine Bacteria (Auto) 4+ (NEG) Osmolality 263 mOsm/kg (280-300) Test 09/15/16 00:15 09/15/16 10:08 09/17/16 10:45 09/20/16 05:36 Urine Random Sodium 12 mEq/L Nucleated RBC Absolute Count (auto) 0.04 K/uL (0-0) Nucleated Red Blood Cells % 0.4 % Urine Osmolality 352 mOms/kg (500-800) Thyroid Stimulating Hormone (TSH) 22.100 uIu/ml (0.300-4.500) Free Thyroxine 0.51 ng/dl (0.80-1.60) Test 09/24/16 00:05 10/02/16 11:45 10/04/16 05:30 10/05/16 05:30 Urine Color YELLOW Urine Appearance CLEAR (CLEAR) Urine pH 6.5 (4.5-7.5) Urine Specific [place] 1.011 (1.000-1.030) Urine Protein NEG (NEG) Urine Glucose (UA) NEG (NEG) Urine Ketones NEG (NEG) Urine Occult Blood NEG (NEG) Urine Nitrite NEG (NEG) Urine Bilirubin NEG (NEG) Urine Urobilinogen NEG (NEG) Urine Leukocyte Esterase NEG (NEG) Stool Occult Blood NEGATIVE (NEGATIVE) Immature Granulocyte % (Auto) 0.7 % White Blood Count 3.06 K/uL (4.8-10.8) Red Blood Count 3.04 M/uL (4.2-5.4) 3.27 M/uL (4.2-5.4) Hemoglobin 8.1 g/dL (12.0-16.0) Hematocrit 26.0 % (37-47) Mean Corpuscular Volume 85.5 fL (80-100) 85.6 fL (80-100) Mean Corpuscular Hemoglobin 26.6 pg (25-34) 26.6 pg (25-34) Mean Corpuscular Hemoglobin Concent 31.2 g/dl (32-36) 31.1 g/dl (32-36) Platelet Count 258 K/uL (130-400) Mean Platelet Volume 8.0 fL (7.4-10.4) 8.1 fL (7.4-10.4) Neutrophils (%) (Auto) 68.2 % Lymphocytes (%) (Auto) 11.1 % Monocytes (%) (Auto) 8.2 % Eosinophils (%) (Auto) 11.1 % Basophils (%) (Auto) 0.7 % Neutrophils # (Auto) 2.09 K/uL (1.4-6.5) Lymphocytes # (Auto) 0.34 K/uL (1.2-3.4) Monocytes # (Auto) 0.25 K/uL (0.11-0.59) Eosinophils # (Auto) 0.34 K/uL (0-0.5) Basophils # (Auto) 0.02 K/uL (0-0.2) Immature Granulocyte # (Auto) 0.02 K/uL (0.00-0.02) Red Blood Cell Morphology Unremarkable Anion Gap 8.0 mmol/L (3-11) BUN/Creatinine Ratio 13.8 (10-20) Calcium Level 8.3 mg/dl (8.5-10.1) RDW Standard Deviation 58.8 fL (36.4-46.3) RDW Coefficient of Variation 19.3 % (11.5-14.5) Prothrombin Time 22.2 SECONDS (9.0-12.0) Prothromb Time International Ratio 2.0 (0.9-1.1) Est Creatinine Clear Calc Drug Dose 78.6 ml/min Estimated GFR () 97.0 Estimated GFR (Non- 83.7 Date/Time Source Procedure Growth Status 09/14/16 09:42 Urine , Clean Catch Urine Culture - Final Klebsiella Pneumoniae Complete Last 24 Hours Test 10/05/16 05:30 White Blood Count 2.81 K/uL Red Blood Count 3.27 M/uL Hemoglobin 8.7 g/dL Hematocrit 28.0 % Mean Corpuscular Volume 85.6 fL Mean Corpuscular Hemoglobin 26.6 pg Mean Corpuscular Hemoglobin Concent 31.1 g/dl RDW Standard Deviation 58.8 fL RDW Coefficient of Variation 19.3 % Platelet Count 265 K/uL Mean Platelet Volume 8.1 fL Prothrombin Time 22.2 SECONDS Prothromb Time International Ratio 2.0 Creatinine 0.72 mg/dl Est Creatinine Clear Calc Drug Dose 78.6 ml/min Estimated GFR () 97.0 Estimated GFR (Non- 83.7 Assessment & Plan 71 yoF with 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 Cancer pain-improved since admission with Fentanyl patch 100mcg, Nortriptyline and gabapentin, and XRT daily 5 days per week (this is her last week, treatment ends 10/12). Family refusing anything but IV Dilaudid--I will discuss with POA/family later. For now pain was reconsulted to assist. Will cont Dilaudid but in lower dose at higher frequency as needed. Currently needing it q6hrs. 2. 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 Anemia-likely multifactorial in setting of chronic disease and daily phlebotomy, no active bleeding Hb 8.2 on presentation, s/p prbc transfusion 2 units on 09/12/16 hb 7.8 10/01/16 asymptomatic stool for Hemoccult s/p one more unit prbc transfused 10/01/16 hb 8.1 -monitor daily labs 4. LLE DVT-on Lovenox bridge to warfarin. INR therapeutic today. Cont Lovenox for one more day, then will stop if INR>2.0. Plan for lifelong coumadin 5. HTN-restarted Vasotec after resolution of Vasotec 6. Hypovolemic hyponatremia-resolved 122-->135 with IVF, Nephrology consulted 7. Opioid-induced constipation-cont bowel regimen 8. Stage I pressure ulcer on buttock-patient is ambulating and easily moves around bed, wound care nurse following, daily skin checks. DVT PROPHYLAXIS on Lovenox and Coumadin CODE STATUS Full code DISPOSITION Lives alone metastatic Cancer on palliative tx -intractable pain Dispo to [facility] for rehab once pain is better under control and she is off IV pain meds Follows with Dr. Gonzalez for primary care DO [facility] Continued [facility] stay due to: inadequate oral pain control Consultants: Pain Management, Nephrology, Oncology Current Inpatient Medications: Current Inpatient Medications Medications (Trade) Dose Ordered Sig/Benjamín Route Start Time Stop Time Status Last Admin Dose Admin Naloxone HCl (Narcan Inj) 0.1 mg Q5M PRN IV 09/11/16 14:00 10/11/16 13:59 Montelukast Sodium (Singulair Tab) 10 mg HS PO 09/11/16 21:00 10/11/16 20:59 10/04/16 20:27 10 MG Non-Formulary Medication (Non-Formulary Patient'S Own Med) 1 ea DAILY@1800 PO 09/11/16 18:00 10/06/16 18:01 10/04/16 18:36 1 EA Diclofenac Sodium (Voltaren 1% Top Gel) 1 appln TID PRN EXT 09/12/16 12:15 10/12/16 12:14 10/04/16 07:57 1 APPLN Ondansetron HCl (Zofran Inj) 4 mg Q6H PRN IV 09/12/16 18:15 10/12/16 18:14 09/13/16 09:38 4 MG Magnesium Hydroxide (Milk Of Magnesia Susp) 30 ml Q6H PRN PO 09/15/16 16:45 10/15/16 16:44 09/15/16 21:50 30 ML Lactulose (Chronulac Syrup) 30 gm TID PRN PO 09/15/16 17:00 10/15/16 16:59 09/16/16 09:13 30 GM Nortriptyline HCl (Pamelor Cap) 10 mg HS PO 09/17/16 21:00 10/17/16 20:59 10/04/16 20:27 10 MG Miscellaneous Information (Check Fentanyl Patch Placement) 1 ea QS N/A 09/20/16 16:00 11/04/16 12:00 10/05/16 07:26 1 EA Levothyroxine Sodium (Synthroid Tab) 50 mcg DAILYBB PO 09/21/16 06:30 10/21/16 06:29 10/05/16 05:38 50 MCG Senna/Docusate Sodium (Senokot S Tab) 1 tab DAILY PO 09/21/16 08:00 10/21/16 07:59 10/05/16 07:26 1 TAB Gabapentin (Neurontin Cap) 300 mg TID PO 09/21/16 14:00 10/21/16 13:59 10/05/16 07:25 300 MG Polyethylene (Miralax Powder Packet) 17 gm BID PO 09/23/16 08:00 10/23/16 07:59 10/05/16 07:26 17 GM Bisacodyl (Dulcolax Supp) 10 mg DAILY PRN MI 09/22/16 21:00 10/22/16 20:59 Sodium Biphosphate/ Sodium Phosphate (Fleet Enema) 132 ml DAILY PRN MI 09/22/16 21:00 10/22/16 20:59 Bisacodyl (Dulcolax Tab) 10 mg BID PRN PO 09/23/16 20:00 10/23/16 19:59 Hydromorphone HCl (Dilaudid Tab) 4 mg Q2H PRN PO 09/28/16 19:00 10/12/16 18:59 10/03/16 15:33 4 MG Enalapril Maleate (Vasotec Tab) 10 mg QAM PO 10/01/16 08:00 10/31/16 07:59 10/05/16 07:25 10 MG Hydromorphone HCl (Dilaudid Inj) 1 mg Q4 PRN IV 10/03/16 20:00 10/17/16 19:59 10/05/16 07:26 1 MG Warfarin Sodium (Coumadin Tab) 10 mg DAILY@16 PO 10/04/16 16:00 11/03/16 15:59 10/04/16 16:17 10 MG Fentanyl (Duragesic Patch) 100 mcg Q72H TD 10/05/16 10:00 10/19/16 09:59 10/05/16 10:10 100 MCG Miscellaneous (Fentanyl Patch Remove & Waste) 1 ea Q3D@0959 N/A 10/05/16 09:59 11/04/16 09:58 10/05/16 10:10 1 EA Enoxaparin Sodium (Lovenox Inj) 90 mg Q12@0800,2000 SQ 10/04/16 20:00 11/03/16 19:59 10/05/16 07:25 90 MG
[2016-10-05 11:30] VITALS: BP 131/81; PULSE 100; TEMP 36.9; O2SAT 100
[2016-10-05] MEDS: HYDROmorphone INJ 0.5 MG/0.5 ML SYR IV PRN ×2 (13:48→18:07)
[2016-10-05 15:04] VITALS: BP 147/88; PULSE 99; TEMP 36.7; O2SAT 98
[2016-10-05] MEDS: WARFARIN SOD 5 MG TAB PO SCH (16:26)
[2016-10-05] MEDS: [UNRECOGNIZED DRUG - OTHER] PO SCH (18:15)
[2016-10-05 19:14] VITALS: BP 161/80; PULSE 89; TEMP 36.9; O2SAT 96
[2016-10-05] MEDS: MONTELUKAST SOD 10 MG TAB PO SCH (21:12)
[2016-10-05] MEDS: NORTRIPTYLINE HCL 10 MG CAP PO SCH (21:12)
[2016-10-06] VITALS (8 sets, daily range): BP systolic 136–179; BP diastolic 74–102; PULSE 85–92; TEMP 36.5–37.2; O2SAT 95–98
[2016-10-06] MEDS: CHECK FENTANYL PATCH PLACEMENT SCH ×4 (00:20→23:50)
[2016-10-06] MEDS: HYDROmorphone HCL 2 MG TAB PO PRN ×5 (02:14→21:41)
[2016-10-06 05:51] LABS: BASO % 0.3 %; BASO ABS # 0.01 K/uL (0-0.2); COMPLETE YES; HEMATOCRIT 28.7 % (37-47); IG% 0.3 %; LYMPH % 15.9 %; LYMPH ABS # 0.46 K/uL (1.2-3.4); MEAN CELL VOLUME 87.2 fL (80-100); MEAN CORPUSCULAR HEMOGLOBIN 27.4 pg (25-34); MEAN CORPUSCULAR HGB CONC 31.4 g/dl (32-36); MEAN PLATELET VOLUME 8.4 fL (7.4-10.4); NEUT % 66.5 %; PLATELET COUNT 296 K/uL (130-400); RED BLOOD COUNT 3.29 M/uL (4.2-5.4); WHITE BLOOD COUNT 2.89 K/uL (4.8-10.8)
[2016-10-06 05:57] LABS: INR 2.4 (0.9-1.1); PROTHROMBIN TIME (PATIENT) 26.7 SECONDS (9.0-12.0)
[2016-10-06 06:24] LABS: BUN/CREATININE RATIO 11.6 (10-20); CALCIUM 8.8 mg/dl (8.5-10.1); CREATININE 0.68 mg/dl (0.60-1.20); POTASSIUM 4.3 mmol/L (3.5-5.1)
[2016-10-06 06:27] LABS: ALB/GLOB RATIO 0.5 (0.9-2)
[2016-10-06] MEDS: LEVOTHYROXINE 50 MCG TAB PO SCH (06:35)
--- NOTE | 2016-10-06 07:09 | DIAGNOSTIC IMAGING REPORT ---
CT SCAN OF THE BRAIN WITHOUT IV CONTRAST CLINICAL HISTORY: Fall with head injury. COMPARISON STUDY: No priors. TECHNIQUE: Unenhanced axial CT scan of the brain is performed from the vertex to the skull base. CT DOSE: 614.27 mGy.cm FINDINGS: Brain parenchyma: There are age-related involutional changes noting mild subcortical and periventricular microangiopathic change. There is no hemorrhage, mass effect, or evidence of acute territorial ischemia by CT criteria. Edmond-white matter is preserved. No extra-axial fluid collection is seen. Ventricles, sulci, cisterns: Prominent secondary to involutional change. Intracranial vasculature: There is atherosclerotic calcification of the cavernous carotid and vertebral arteries. Calvarium: The skeletal structures are osteopenic. No depressed calvarial fracture is seen. Sinuses and mastoids: A small retention cyst is noted in the left maxillary antrum. The remaining visualized paranasal sinuses are clear. The mastoid air cells are well pneumatized. Orbits: The bony orbits are grossly intact. IMPRESSION: There is no hemorrhage, mass effect, or evidence of acute territorial ischemia by CT criteria. Electronically signed by: Juan Tolentino M.D. 10/06/2016 7:08 AM Dictated Date/Time: 10/06/2016 7:06 AM
[2016-10-06] MEDS: POLYETHYLENE (MIRALAX) 17 GM PACK PO SCH ×2 (07:46→21:35)
[2016-10-06] MEDS: ENALAPRIL MALEATE 10 MG TAB PO SCH (07:47)
[2016-10-06] MEDS: DOCUSATE SODIUM/SENNA 50/8.6MG TAB PO SCH (07:47)
[2016-10-06] MEDS: GABAPENTIN 300 MG CAP PO SCH ×3 (07:48→21:35)
[2016-10-06] MEDS: ENOXAPARIN 100 MG/1ML SYR SQ SCH (07:51)
[2016-10-06] MEDS: HYDROmorphone INJ 0.5 MG/0.5 ML SYR IV PRN ×2 (07:55→23:51)
[2016-10-06] MEDS: WARFARIN SOD 5 MG TAB PO SCH (16:00)
--- NOTE | 2016-10-06 17:48 | Pain Management Progress Note ---
Pain Management Progress Note Date of Service Oct 06, 2016. Subjective Patient seen today for follow-up. Reports "good" pain relief with exception of pain with radiation therapy. Using IV hydromorphone for breakthrough instead of PO. No side effects reported to current analgesic regimen. Objective Vital Signs: Last Vital Signs Documentation Date Time Temp Pulse Resp B/P Pulse Ox O2 Delivery O2 Flow Rate FiO2 10/06/16 16:00 Room Air 10/06/16 15:00 36.8 86 20 147/77 97 10/02/16 07:15 0.0 Physical Exam: A/O. Moving all 4 extremities. NAD. Laboratory (Last CBC): 10/06/16 05:09 Red Blood Count 3.29 L, Mean Corpuscular Volume 87.2, Mean Corpuscular Hemoglobin 27.4, Mean Corpuscular Hemoglobin Concent 31.4 L, Mean Platelet Volume 8.4, Neutrophils (%) (Auto) 66.5, Lymphocytes (%) (Auto) 15.9, Monocytes (%) (Auto) 9.0, Eosinophils (%) (Auto) 8.0, Basophils (%) (Auto) 0.3, Neutrophils # (Auto) 1.92, Lymphocytes # (Auto) 0.46 L, Monocytes # (Auto) 0.26 , Eosinophils # (Auto) 0.23, Basophils # (Auto) 0.01 Assessment 1. Left leg pain. 2. Metastatic malignancy. Recommendations 1. No [facility]. Patient encouraged to use PO hydromorphone instead of IV. [employer] Voice Recognition This chart was completed in part utilizing [facility] [employer] Voice Recognition Software. Random word insertions, pronoun errors, and incomplete sentences are an occasional consequence of this system due to software limitations and ambient noise. Any questions or concerns about the content, text or information contained within the body of this dictation should be directly addressed to the provider for clarification.
[2016-10-06] MEDS: [UNRECOGNIZED DRUG - OTHER] PO SCH (18:33)
[2016-10-06] MEDS: NORTRIPTYLINE HCL 10 MG CAP PO SCH (21:35)
[2016-10-06] MEDS: MONTELUKAST SOD 10 MG TAB PO SCH (21:36)
--- NOTE | 2016-10-06 22:06 | Progress Note ---
Medicine Progress Note Date & Time of Visit: Oct 06, 2016 at 1630. 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, recently diagnosed with LLE DVT admitted for worsening back and hip pain Pain reported as a 5/10, somewhat improved today Pain mostly located in her L hip/groin area and in her legs She notes that the pain in her legs was worse with the swelling, however, she has had the TEDs on now for two days with some improvement in the pain She is tolerating PO and was able to ambulate quite >200 ft with the walker with PT today Discussion with family per plan below. Otherwise is asymptomatic including no chest pain, abdominal pain or nausea or shortness of breath. Objective Last 8 Hrs Date Time Temp Pulse Resp B/P Pulse Ox O2 Delivery O2 Flow Rate FiO2 10/06/16 20:04 37.2 86 20 143/74 98 10/06/16 16:00 Room Air 10/06/16 15:00 36.8 86 20 147/77 97 Room Air Physical Exam: GEN: WNWD, in no acute distress, alert and appropriate HEENT: NC/AT, normal sclerae CARDIO: reg rate, S1/2 heard without m/g/r LUNGS: CTA bilaterally, no crackles, rales or wheezes, good diaphragmatic excursion ABD: soft, non-tender, non-distended, no rebound or guarding, +BS EXTREMITY: No LE swelling or edema, extremities are warm and well-perfused, TEDs on bilaterally NEURO: CN 2-12 grossly intact, sensation intact throughout MUSC: 5/5 strength throughout, no gross focal deficits, gait not assessed SKIN: warm and dry Laboratory Results: 10/06/16 05:09 Red Blood Count 3.29, Mean Corpuscular Volume 87.2, Mean Corpuscular Hemoglobin 27.4, Mean Corpuscular Hemoglobin Concent 31.4, Mean Platelet Volume 8.4, Neutrophils (%) (Auto) 66.5, Lymphocytes (%) (Auto) 15.9, Monocytes (%) (Auto) 9.0, Eosinophils (%) (Auto) 8.0, Basophils (%) (Auto) 0.3, Neutrophils # (Auto) 1.92, Lymphocytes # (Auto) 0.46, Monocytes # (Auto) 0.26, Eosinophils # (Auto) 0.23, Basophils # (Auto) 0.01 10/06/16 05:09 Test 09/11/16 09:15 09/12/16 06:15 09/14/16 09:42 09/14/16 12:04 Activated Partial Thromboplast Time 39.9 SECONDS (21.0-31.0) Partial Thromboplastin Ratio 1.5 Heparin Anti-Xa Act, Low Molec Wt 1.54 IU/ML (0 - <0.10) Magnesium Level 2.0 mg/dl (1.8-2.4) Urine WBC (Auto) 10-30 /hpf (0-5) Urine RBC (Auto) 0-4 /hpf (0-4) Urine Hyaline Casts (Auto) 0 /lpf (0-5) Urine Epithelial Cells (Auto) 0-5 /lpf (0-5) Urine Bacteria (Auto) 4+ (NEG) Osmolality 263 mOsm/kg (280-300) Test 09/15/16 00:15 09/15/16 10:08 09/17/16 10:45 09/20/16 05:36 Urine Random Sodium 12 mEq/L Nucleated RBC Absolute Count (auto) 0.04 K/uL (0-0) Nucleated Red Blood Cells % 0.4 % Urine Osmolality 352 mOms/kg (500-800) Thyroid Stimulating Hormone (TSH) 22.100 uIu/ml (0.300-4.500) Free Thyroxine 0.51 ng/dl (0.80-1.60) Test 09/24/16 00:05 10/02/16 11:45 10/04/16 05:30 10/06/16 05:09 Urine Color YELLOW Urine Appearance CLEAR (CLEAR) Urine pH 6.5 (4.5-7.5) Urine Specific [place] 1.011 (1.000-1.030) Urine Protein NEG (NEG) Urine Glucose (UA) NEG (NEG) Urine Ketones NEG (NEG) Urine Occult Blood NEG (NEG) Urine Nitrite NEG (NEG) Urine Bilirubin NEG (NEG) Urine Urobilinogen NEG (NEG) Urine Leukocyte Esterase NEG (NEG) Stool Occult Blood NEGATIVE (NEGATIVE) Red Blood Cell Morphology Unremarkable White Blood Count 2.89 K/uL (4.8-10.8) Red Blood Count 3.29 M/uL (4.2-5.4) Hemoglobin 9.0 g/dL (12.0-16.0) Hematocrit 28.7 % (37-47) Mean Corpuscular Volume 87.2 fL (80-100) Mean Corpuscular Hemoglobin 27.4 pg (25-34) Mean Corpuscular Hemoglobin Concent 31.4 g/dl (32-36) Platelet Count 296 K/uL (130-400) Mean Platelet Volume 8.4 fL (7.4-10.4) Neutrophils (%) (Auto) 66.5 % Lymphocytes (%) (Auto) 15.9 % Monocytes (%) (Auto) 9.0 % Eosinophils (%) (Auto) 8.0 % Basophils (%) (Auto) 0.3 % Neutrophils # (Auto) 1.92 K/uL (1.4-6.5) Lymphocytes # (Auto) 0.46 K/uL (1.2-3.4) Monocytes # (Auto) 0.26 K/uL (0.11-0.59) Eosinophils # (Auto) 0.23 K/uL (0-0.5) Basophils # (Auto) 0.01 K/uL (0-0.2) RDW Standard Deviation 61.9 fL (36.4-46.3) RDW Coefficient of Variation 19.6 % (11.5-14.5) Immature Granulocyte % (Auto) 0.3 % Immature Granulocyte # (Auto) 0.01 K/uL (0.00-0.02) Prothrombin Time 26.7 SECONDS (9.0-12.0) Prothromb Time International Ratio 2.4 (0.9-1.1) Anion Gap 10.0 mmol/L (3-11) Est Creatinine Clear Calc Drug Dose 82.8 ml/min Estimated GFR () 101.3 Estimated GFR (Non- 87.4 BUN/Creatinine Ratio 11.6 (10-20) Calcium Level 8.8 mg/dl (8.5-10.1) Phosphorus Level 3.0 mg/dl (2.5-4.9) Total Bilirubin 0.3 mg/dl (0.2-1) Aspartate Amino Transf (AST/SGOT) 18 U/L (15-37) Alanine Aminotransferase (ALT/SGPT) 25 U/L (12-78) Alkaline Phosphatase 158 U/L (45-117) Total Protein 6.0 gm/dl (6.4-8.2) Albumin 2.0 gm/dl (3.4-5.0) Globulin 4.0 gm/dl (2.5-4.0) Albumin/Globulin Ratio 0.5 (0.9-2) Date/Time Source Procedure Growth Status 09/14/16 09:42 Urine , Clean Catch Urine Culture - Final Klebsiella Pneumoniae Complete Last 24 Hours Test 10/06/16 05:09 White Blood Count 2.89 K/uL Red Blood Count 3.29 M/uL Hemoglobin 9.0 g/dL Hematocrit 28.7 % Mean Corpuscular Volume 87.2 fL Mean Corpuscular Hemoglobin 27.4 pg Mean Corpuscular Hemoglobin Concent 31.4 g/dl Platelet Count 296 K/uL Mean Platelet Volume 8.4 fL Neutrophils (%) (Auto) 66.5 % Lymphocytes (%) (Auto) 15.9 % Monocytes (%) (Auto) 9.0 % Eosinophils (%) (Auto) 8.0 % Basophils (%) (Auto) 0.3 % Neutrophils # (Auto) 1.92 K/uL Lymphocytes # (Auto) 0.46 K/uL Monocytes # (Auto) 0.26 K/uL Eosinophils # (Auto) 0.23 K/uL Basophils # (Auto) 0.01 K/uL RDW Standard Deviation 61.9 fL RDW Coefficient of Variation 19.6 % Immature Granulocyte % (Auto) 0.3 % Immature Granulocyte # (Auto) 0.01 K/uL Prothrombin Time 26.7 SECONDS Prothromb Time International Ratio 2.4 Sodium Level 136 mmol/L Potassium Level 4.3 mmol/L Chloride Level 99 mmol/L Carbon Dioxide Level 27 mmol/L Anion Gap 10.0 mmol/L Blood Urea Nitrogen 8 mg/dl Creatinine 0.68 mg/dl Est Creatinine Clear Calc Drug Dose 82.8 ml/min Estimated GFR () 101.3 Estimated GFR (Non- 87.4 BUN/Creatinine Ratio 11.6 Random Glucose 98 mg/dl Calcium Level 8.8 mg/dl Phosphorus Level 3.0 mg/dl Total Bilirubin 0.3 mg/dl Aspartate Amino Transf (AST/SGOT) 18 U/L Alanine Aminotransferase (ALT/SGPT) 25 U/L Alkaline Phosphatase 158 U/L Total Protein 6.0 gm/dl Albumin 2.0 gm/dl Globulin 4.0 gm/dl Albumin/Globulin Ratio 0.5 Assessment & Plan 71 yoF with 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 Cancer pain-improved since admission with Fentanyl patch 100mcg, Nortriptyline and gabapentin, and XRT daily 5 days per week (this is her last week, treatment ends 10/12). Discussion with patient and two daughters about pain meds and staying in the hospital through Wednesday to complete all of her XRT therapy prior to leaving. Pt is fearful of leaving the hospital and travelling to and from for daily XRT. Also, family decided against [facility] as they don't believe patient can stand 3 hrs of rehab daily. Will need to discuss this with Case Management for other options. Pt and family are amenable to trying PO Dilaudid after Dr. Lujan's discussion with her this morning. Cont Fentanyl patch with PO Dilaudid for breakthrough pain. Patient and family were assured that controlling her pain was a top priority. They understand risks of staying in the hospital but will just take it one day at a time. 2. 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 Anemia-likely multifactorial in setting of chronic disease and daily phlebotomy, no active bleeding Hb 8.2 on presentation, s/p prbc transfusion 2 units on 09/12/16 hb 7.8 10/01/16 asymptomatic stool for Hemoccult s/p one more unit prbc transfused 10/01/16 hb 8.1 -monitor daily labs 4. LLE DVT-on Lovenox bridge to warfarin. INR therapeutic today again so Lovenox was discontinued. Plan for lifelong coumadin. 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 HTN-controlled, cont Vasotec 6. Hypovolemic hyponatremia-resolved 7. Opioid-induced constipation-cont bowel regimen 8. Stage I pressure ulcer on buttock-patient is ambulating and easily moves around bed, wound care nurse following, daily skin checks. DVT PROPHYLAXIS on Lovenox and Coumadin CODE STATUS Full code DISPOSITION Lives alone metastatic Cancer on palliative tx -intractable pain Was set for [facility], however, family feels this is too much rehab for her-- need to re-engage with CM for other options Pt understands the risks of staying in the hospital including nosocomial infections, delaying rehabilitation, further blood stasis, etc, however, at this point she has voiced to me that she would like to stay in the hospital until her XRT treatments are through on 10/12. Will cont to be aggressive about controlling pain to help her feel better and explore other options for rehab which may delay her stay here anyway. Krissy Lyons DO [facility] Hospitalist Continued [facility] stay due to: inadequate oral pain control Consultants: Pain Management, Nephrology, Oncology Current Inpatient Medications: Current Inpatient Medications Medications (Trade) Dose Ordered Sig/Benjamín Route Start Time Stop Time Status Last Admin Dose Admin Naloxone HCl (Narcan Inj) 0.1 mg Q5M PRN IV 09/11/16 14:00 10/11/16 13:59 Montelukast Sodium (Singulair Tab) 10 mg HS PO 09/11/16 21:00 10/11/16 20:59 10/06/16 21:36 10 MG Diclofenac Sodium (Voltaren 1% Top Gel) 1 appln TID PRN EXT 09/12/16 12:15 10/12/16 12:14 10/04/16 07:57 1 APPLN Ondansetron HCl (Zofran Inj) 4 mg Q6H PRN IV 09/12/16 18:15 10/12/16 18:14 09/13/16 09:38 4 MG Magnesium Hydroxide (Milk Of Magnesia Susp) 30 ml Q6H PRN PO 09/15/16 16:45 10/15/16 16:44 09/15/16 21:50 30 ML Lactulose (Chronulac Syrup) 30 gm TID PRN PO 09/15/16 17:00 10/15/16 16:59 09/16/16 09:13 30 GM Nortriptyline HCl (Pamelor Cap) 10 mg HS PO 09/17/16 21:00 10/17/16 20:59 10/06/16 21:35 10 MG Miscellaneous Information (Check Fentanyl Patch Placement) 1 ea QS N/A 09/20/16 16:00 11/04/16 12:00 10/06/16 16:01 1 EA Levothyroxine Sodium (Synthroid Tab) 50 mcg DAILYBB PO 09/21/16 06:30 10/21/16 06:29 10/06/16 06:35 50 MCG Senna/Docusate Sodium (Senokot S Tab) 1 tab DAILY PO 09/21/16 08:00 10/21/16 07:59 10/06/16 07:47 1 TAB Gabapentin (Neurontin Cap) 300 mg TID PO 09/21/16 14:00 10/21/16 13:59 10/06/16 21:35 300 MG Polyethylene (Miralax Powder Packet) 17 gm BID PO 09/23/16 08:00 10/23/16 07:59 10/06/16 21:35 17 GM Bisacodyl (Dulcolax Supp) 10 mg DAILY PRN [place] 09/22/16 21:00 10/22/16 20:59 Sodium Biphosphate/ Sodium Phosphate (Fleet Enema) 132 ml DAILY PRN [place] 09/22/16 21:00 10/22/16 20:59 Bisacodyl (Dulcolax Tab) 10 mg BID PRN PO 09/23/16 20:00 10/23/16 19:59 Hydromorphone HCl (Dilaudid Tab) 4 mg Q2H PRN PO 09/28/16 19:00 10/12/16 18:59 10/06/16 21:41 4 MG Enalapril Maleate (Vasotec Tab) 10 mg QAM PO 10/01/16 08:00 10/31/16 07:59 10/06/16 07:47 10 MG Warfarin Sodium (Coumadin Tab) 10 mg DAILY@16 PO 10/04/16 16:00 11/03/16 15:59 10/06/16 16:00 10 MG Fentanyl (Duragesic Patch) 100 mcg Q72H TD 10/05/16 10:00 10/19/16 09:59 10/05/16 10:10 100 MCG Miscellaneous (Fentanyl Patch Remove & Waste) 1 ea Q3D@0959 N/A 10/05/16 09:59 11/04/16 09:58 10/05/16 10:10 1 EA Hydromorphone HCl (Dilaudid Inj) 0.5 mg Q3H PRN IV 10/05/16 11:00 10/19/16 10:28 10/06/16 07:55 0.5 MG
[2016-10-07] VITALS (7 sets, daily range): BP systolic 137–165; BP diastolic 75–89; PULSE 77–93; TEMP 36.3–37.1; O2SAT 93–99
[2016-10-07] MEDS: HYDROmorphone HCL 2 MG TAB PO PRN ×5 (03:13→21:27)
[2016-10-07 05:50] LABS: INR 2.4 (0.9-1.1); PROTHROMBIN TIME (PATIENT) 27.2 SECONDS (9.0-12.0)
[2016-10-07] MEDS: LEVOTHYROXINE 50 MCG TAB PO SCH (05:56)
[2016-10-07] MEDS: ENALAPRIL MALEATE 10 MG TAB PO SCH (09:12)
[2016-10-07] MEDS: DOCUSATE SODIUM/SENNA 50/8.6MG TAB PO SCH (09:12)
[2016-10-07] MEDS: GABAPENTIN 300 MG CAP PO SCH ×3 (09:12→21:20)
[2016-10-07] MEDS: POLYETHYLENE (MIRALAX) 17 GM PACK PO SCH ×2 (09:13→21:18)
[2016-10-07] MEDS: CHECK FENTANYL PATCH PLACEMENT SCH ×2 (09:13→16:21)
--- NOTE | 2016-10-07 12:01 | Progress Note ---
Medicine Progress Note Date & Time of Visit: Oct 07, 2016 at 11:57. 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, recently diagnosed with LLE DVT admitted for worsening back and hip pain -pain controlled on PO dilaudid overnight -doing well overall -leg pain is improved with JESSICA hose -no constipation -patient is otherwise asymptomatic -XRT went well this morning per her report -tolerating PO Objective Last 8 Hrs Date Time Temp Pulse Resp B/P Pulse Ox O2 Delivery O2 Flow Rate FiO2 10/07/16 11:43 36.6 88 18 142/84 95 Room Air 10/07/16 09:15 Room Air 10/07/16 07:33 36.3 81 16 159/80 93 Room Air Physical Exam: GEN: WNWD, in no acute distress, alert and appropriate, sitting in bedside chair HEENT: NC/AT, normal sclerae CARDIO: reg rate, S1/2 heard without m/g/r LUNGS: CTA bilaterally, no crackles, rales or wheezes, good diaphragmatic excursion ABD: soft, non-tender, non-distended, no rebound or guarding, +BS EXTREMITY: No LE swelling or edema, extremities are warm and well-perfused, TEDs on bilaterally NEURO: CN 2-12 grossly intact, sensation intact throughout MUSC: 5/5 strength throughout, no gross focal deficits, gait not assessed SKIN: warm and dry Laboratory Results: Last 24 Hours Test 10/07/16 05:25 Prothrombin Time 27.2 SECONDS Prothromb Time International Ratio 2.4 Assessment & Plan 71 yoF with 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 Cancer pain-improved since admission with Fentanyl patch 100mcg, Nortriptyline and gabapentin, and XRT daily 5 days per week (this is her last week, treatment ends 10/12). Discussion with patient and two daughters about pain meds and staying in the hospital through Wednesday to complete all of her XRT therapy prior to leaving. Pt is fearful of leaving the hospital and travelling to and from for daily XRT. Also, family decided against [facility] as they don't believe patient can stand 3 hrs of rehab daily. Will need to discuss this with Case Management for other options. Pt and family are amenable to trying PO Dilaudid after Dr. Lujan's discussion with her yesterday. Cont Fentanyl patch with PO Dilaudid for breakthrough pain as this has been working well for her. Patient and family were assured that controlling her pain was a top priority. They understand risks of staying in the hospital but will just take it one day at a time. Cont Sutent daily at [address] Villagran. 2. 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 Anemia-likely multifactorial in setting of chronic disease and daily phlebotomy, no active bleeding Hb 8.2 on presentation, s/p prbc transfusion 2 units on 09/12/16 hb 7.8 10/01/16 asymptomatic stool for Hemoccult s/p one more unit prbc transfused 10/01/16 hb 8.1 -monitor H/H periodically 4. LLE DVT-on Lovenox bridge to warfarin. INR daily-currently therapeutic and off Lovenox bridge. Plan for lifelong coumadin. Cont TEDs to help with post- thrombotic syndrome 5. HTN-controlled, cont Vasotec 6. Hypovolemic hyponatremia-resolved 7. Opioid-induced constipation-cont bowel regimen 8. Stage I pressure ulcer on buttock-patient is ambulating and easily moves around bed, wound care nurse following, daily skin checks. DVT PROPHYLAXIS on Lovenox and Coumadin CODE STATUS Full code DISPOSITION Lives alone metastatic Cancer on palliative tx -intractable pain Was set for [facility], however, family feels this is too much rehab for her-- need to re-engage with CM for other options Pt understands the risks of staying in the hospital including nosocomial infections, delaying rehabilitation, further blood stasis, etc, however, at this point she has voiced to me that she would like to stay in the hospital until her XRT treatments are through on Mon 10/12. Will cont to be aggressive about controlling pain to help her feel better and explore other options for rehab which may delay her stay here anyway. DO [facility] Continued [facility] stay due to: inadequate oral pain control Consultants: Pain Management, Nephrology, Oncology Current Inpatient Medications: Current Inpatient Medications Medications (Trade) Dose Ordered Sig/Benjamín Route Start Time Stop Time Status Last Admin Dose Admin Naloxone HCl (Narcan Inj) 0.1 mg Q5M PRN IV 09/11/16 14:00 10/11/16 13:59 Montelukast Sodium (Singulair Tab) 10 mg HS PO 09/11/16 21:00 10/11/16 20:59 10/06/16 21:36 10 MG Diclofenac Sodium (Voltaren 1% Top Gel) 1 appln TID PRN EXT 09/12/16 12:15 10/12/16 12:14 10/04/16 07:57 1 APPLN Ondansetron HCl (Zofran Inj) 4 mg Q6H PRN IV 09/12/16 18:15 10/12/16 18:14 09/13/16 09:38 4 MG Magnesium Hydroxide (Milk Of Magnesia Susp) 30 ml Q6H PRN PO 09/15/16 16:45 10/15/16 16:44 09/15/16 21:50 30 ML Lactulose (Chronulac Syrup) 30 gm TID PRN PO 09/15/16 17:00 10/15/16 16:59 09/16/16 09:13 30 GM Nortriptyline HCl (Pamelor Cap) 10 mg HS PO 09/17/16 21:00 10/17/16 20:59 10/06/16 21:35 10 MG Miscellaneous Information (Check Fentanyl Patch Placement) 1 ea QS N/A 09/20/16 16:00 11/04/16 12:00 10/07/16 09:13 1 EA Levothyroxine Sodium (Synthroid Tab) 50 mcg DAILYBB PO 09/21/16 06:30 10/21/16 06:29 10/07/16 05:56 50 MCG Senna/Docusate Sodium (Senokot S Tab) 1 tab DAILY PO 09/21/16 08:00 10/21/16 07:59 10/07/16 09:12 1 TAB Gabapentin (Neurontin Cap) 300 mg TID PO 09/21/16 14:00 10/21/16 13:59 10/07/16 09:12 300 MG Polyethylene (Miralax Powder Packet) 17 gm BID PO 09/23/16 08:00 10/23/16 07:59 10/07/16 09:13 17 GM Bisacodyl (Dulcolax Supp) 10 mg DAILY PRN [place] 09/22/16 21:00 10/22/16 20:59 Sodium Biphosphate/ Sodium Phosphate (Fleet Enema) 132 ml DAILY PRN [place] 09/22/16 21:00 10/22/16 20:59 Bisacodyl (Dulcolax Tab) 10 mg BID PRN PO 09/23/16 20:00 10/23/16 19:59 Hydromorphone HCl (Dilaudid Tab) 4 mg Q2H PRN PO 09/28/16 19:00 10/12/16 18:59 10/07/16 06:42 4 MG Enalapril Maleate (Vasotec Tab) 10 mg QAM PO 10/01/16 08:00 10/31/16 07:59 10/07/16 09:12 10 MG Warfarin Sodium (Coumadin Tab) 10 mg DAILY@16 PO 10/04/16 16:00 11/03/16 15:59 10/06/16 16:00 10 MG Fentanyl (Duragesic Patch) 100 mcg Q72H TD 10/05/16 10:00 10/19/16 09:59 10/05/16 10:10 100 MCG Miscellaneous (Fentanyl Patch Remove & Waste) 1 ea Q3D@0959 N/A 10/05/16 09:59 11/04/16 09:58 10/05/16 10:10 1 EA Hydromorphone HCl (Dilaudid Inj) 0.5 mg Q3H PRN IV 10/05/16 11:00 10/19/16 10:28 10/06/16 23:51 0.5 MG
[2016-10-07] MEDS: WARFARIN SOD 5 MG TAB PO SCH (16:19)
[2016-10-07] MEDS: MONTELUKAST SOD 10 MG TAB PO SCH (21:20)
[2016-10-07] MEDS: NORTRIPTYLINE HCL 10 MG CAP PO SCH (21:21)
[2016-10-08] VITALS (7 sets, daily range): BP systolic 104–149; BP diastolic 64–82; PULSE 72–92; TEMP 36.4–36.9; O2SAT 95–98
[2016-10-08] MEDS: CHECK FENTANYL PATCH PLACEMENT SCH ×3 (00:30→16:00)
[2016-10-08] MEDS: HYDROmorphone HCL 2 MG TAB PO PRN ×6 (01:07→19:53)
[2016-10-08] MEDS: LEVOTHYROXINE 50 MCG TAB PO SCH (06:05)
[2016-10-08 06:20] LABS: MEAN CELL VOLUME 86.2 fL (80-100); MEAN CORPUSCULAR HEMOGLOBIN 26.8 pg (25-34); MEAN CORPUSCULAR HGB CONC 31.1 g/dl (32-36); MEAN PLATELET VOLUME 7.8 fL (7.4-10.4); PLATELET COUNT 236 K/uL (130-400); RED BLOOD COUNT 3.25 M/uL (4.2-5.4); WHITE BLOOD COUNT 3.08 K/uL (4.8-10.8)
[2016-10-08 06:33] LABS: INR 2.8 (0.9-1.1); PROTHROMBIN TIME (PATIENT) 30.8 SECONDS (9.0-12.0)
[2016-10-08 06:54] LABS: BUN/CREATININE RATIO 12.8 (10-20); CALCIUM 8.3 mg/dl (8.5-10.1); CREATININE 0.69 mg/dl (0.60-1.20); POTASSIUM 4.3 mmol/L (3.5-5.1)
[2016-10-08] MEDS: ENALAPRIL MALEATE 10 MG TAB PO SCH (07:43)
[2016-10-08] MEDS: GABAPENTIN 300 MG CAP PO SCH ×3 (07:43→19:53)
[2016-10-08] MEDS: DOCUSATE SODIUM/SENNA 50/8.6MG TAB PO SCH (07:43)
[2016-10-08] MEDS: POLYETHYLENE (MIRALAX) 17 GM PACK PO SCH ×2 (07:43→19:53)
[2016-10-08] MEDS: FENTANYL PATCH REMOVE & WASTE SCH (10:29)
[2016-10-08] MEDS: FENTANYL 100 MCG/HR TDSY TD SCH (10:30)
[2016-10-08] MEDS: WARFARIN SOD 5 MG TAB PO SCH (17:04)
[2016-10-08] MEDS: MONTELUKAST SOD 10 MG TAB PO SCH (19:54)
[2016-10-08] MEDS: NORTRIPTYLINE HCL 10 MG CAP PO SCH (19:54)
--- NOTE | 2016-10-08 22:35 | Progress Note ---
Medicine Progress Note Date & Time of Visit: Oct 08, 2016 at 12:28. 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, recently diagnosed with LLE DVT admitted for worsening back and hip pain -Dilaudid PO is controlling her pain -Pt expressed that she doesn't want to go to rehab before XRT ends because she is fearful of being transported to and from XRT daily until then -Tolerating PO -BMs are reported Objective Last 8 Hrs Date Time Temp Pulse Resp B/P Pulse Ox O2 Delivery O2 Flow Rate FiO2 10/08/16 12:14 36.9 92 14 126/68 96 Room Air 10/08/16 08:00 Room Air 10/08/16 07:42 36.4 72 18 136/79 97 Room Air 10/08/16 04:48 36.6 80 20 118/77 97 Room Air Physical Exam: GEN: WNWD, in no acute distress, alert and appropriate, sitting in bedside chair HEENT: NC/AT, normal sclerae CARDIO: reg rate, S1/2 heard without m/g/r LUNGS: mild crackles at left lung base, no rales or wheezes, good diaphragmatic excursion ABD: soft, non-tender, non-distended, no rebound or guarding, +BS EXTREMITY: No LE swelling or edema, extremities are warm and well-perfused, TEDs on bilaterally NEURO: CN 2-12 grossly intact, sensation intact throughout MUSC: 5/5 strength throughout, no gross focal deficits, gait not assessed SKIN: warm and dry Laboratory Results: Last 24 Hours Test 10/08/16 06:05 White Blood Count 3.08 K/uL Red Blood Count 3.25 M/uL Hemoglobin 8.7 g/dL Hematocrit 28.0 % Mean Corpuscular Volume 86.2 fL Mean Corpuscular Hemoglobin 26.8 pg Mean Corpuscular Hemoglobin Concent 31.1 g/dl RDW Standard Deviation 61.2 fL RDW Coefficient of Variation 19.6 % Platelet Count 236 K/uL Mean Platelet Volume 7.8 fL Prothrombin Time 30.8 SECONDS Prothromb Time International Ratio 2.8 Sodium Level 137 mmol/L Potassium Level 4.3 mmol/L Chloride Level 100 mmol/L Carbon Dioxide Level 29 mmol/L Anion Gap 8.0 mmol/L Blood Urea Nitrogen 9 mg/dl Creatinine 0.69 mg/dl Est Creatinine Clear Calc Drug Dose 80.8 ml/min Estimated GFR () 100.8 Estimated GFR (Non- 87.0 BUN/Creatinine Ratio 12.8 Random Glucose 96 mg/dl Calcium Level 8.3 mg/dl Assessment & Plan 71 yoF with 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 Cancer pain-improved since admission with Fentanyl patch 100mcg, Nortriptyline and gabapentin, and XRT daily 5 days per week (this is her last week, treatment ends 10/12). Discussion with patient and two daughters about pain meds and staying in the hospital through Wednesday to complete all of her XRT therapy prior to leaving. Pt is fearful of leaving the hospital and travelling to and from for daily XRT. Also, family now ok with going to [facility], however, patient is still resolved to stay inpatient here until XRT is completed. They all verbalized understanding that managing her pain is a top priority to the staff here and are pleased with that and expressed appreciation during our conversation yesterday. Cont Fentanyl and Dilaudid PO as this is working well for her. Incentive spirometry ordered and encouraged. 2. 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 Anemia-likely multifactorial in setting of chronic disease and daily phlebotomy, no active bleeding Hb 8.2 on presentation, s/p prbc transfusion 2 units on 09/12/16 hb 7.8 10/01/16 asymptomatic stool for Hemoccult s/p one more unit prbc transfused 10/01/16 hb 8.1 -currently stable 4. LLE DVT-INR daily-currently therapeutic and off Lovenox bridge. Plan for lifelong coumadin. 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 HTN-controlled, cont Vasotec 6. Hypovolemic hyponatremia-resolved 7. Opioid-induced constipation-cont bowel regimen 8. Stage I pressure ulcer on buttock-patient is ambulating and easily moves around bed, wound care nurse following, daily skin checks. DVT PROPHYLAXIS Coumadin CODE STATUS Full code DISPOSITION Lives alone metastatic Cancer on palliative tx -intractable pain Was set for [facility], however, family feels this is too much rehab for her-- need to re-engage with CM for other options Pt understands the risks of staying in the hospital including nosocomial infections, delaying rehabilitation, further blood stasis, etc, however, at this point she has voiced to me that she would like to stay in the hospital until her XRT treatments are through on 10/12. DO [facility] Hospitalist Continued [facility] stay due to: inadequate oral pain control Consultants: Pain Management, Nephrology, Oncology Current Inpatient Medications: Current Inpatient Medications Medications (Trade) Dose Ordered Sig/Benjamín Route Start Time Stop Time Status Last Admin Dose Admin Naloxone HCl (Narcan Inj) 0.1 mg Q5M PRN IV 09/11/16 14:00 10/11/16 13:59 Montelukast Sodium (Singulair Tab) 10 mg HS PO 09/11/16 21:00 10/11/16 20:59 10/07/16 21:20 10 MG Diclofenac Sodium (Voltaren 1% Top Gel) 1 appln TID PRN EXT 09/12/16 12:15 10/12/16 12:14 10/04/16 07:57 1 APPLN Ondansetron HCl (Zofran Inj) 4 mg Q6H PRN IV 09/12/16 18:15 10/12/16 18:14 09/13/16 09:38 4 MG Magnesium Hydroxide (Milk Of Magnesia Susp) 30 ml Q6H PRN PO 09/15/16 16:45 10/15/16 16:44 09/15/16 21:50 30 ML Lactulose (Chronulac Syrup) 30 gm TID PRN PO 09/15/16 17:00 10/15/16 16:59 09/16/16 09:13 30 GM Nortriptyline HCl (Pamelor Cap) 10 mg HS PO 09/17/16 21:00 10/17/16 20:59 10/07/16 21:21 10 MG Miscellaneous Information (Check Fentanyl Patch Placement) 1 ea QS N/A 09/20/16 16:00 11/04/16 12:00 10/08/16 07:40 1 EA Levothyroxine Sodium (Synthroid Tab) 50 mcg DAILYBB PO 09/21/16 06:30 10/21/16 06:29 10/08/16 06:05 50 MCG Senna/Docusate Sodium (Senokot S Tab) 1 tab DAILY PO 09/21/16 08:00 10/21/16 07:59 10/08/16 07:43 1 TAB Gabapentin (Neurontin Cap) 300 mg TID PO 09/21/16 14:00 10/21/16 13:59 10/08/16 07:43 300 MG Polyethylene (Miralax Powder Packet) 17 gm BID PO 09/23/16 08:00 10/23/16 07:59 10/08/16 07:43 17 GM Bisacodyl (Dulcolax Supp) 10 mg DAILY PRN KS 09/22/16 21:00 10/22/16 20:59 Sodium Biphosphate/ Sodium Phosphate (Fleet Enema) 132 ml DAILY PRN KS 09/22/16 21:00 10/22/16 20:59 Bisacodyl (Dulcolax Tab) 10 mg BID PRN PO 09/23/16 20:00 10/23/16 19:59 Hydromorphone HCl (Dilaudid Tab) 4 mg Q2H PRN PO 09/28/16 19:00 10/12/16 18:59 10/08/16 12:24 4 MG Enalapril Maleate (Vasotec Tab) 10 mg QAM PO 10/01/16 08:00 10/31/16 07:59 10/08/16 07:43 10 MG Warfarin Sodium (Coumadin Tab) 10 mg DAILY@16 PO 10/04/16 16:00 11/03/16 15:59 10/07/16 16:19 10 MG Fentanyl (Duragesic Patch) 100 mcg Q72H TD 10/05/16 10:00 10/19/16 09:59 10/08/16 10:30 100 MCG Miscellaneous (Fentanyl Patch Remove & Waste) 1 ea Q3D@0959 N/A 10/05/16 09:59 11/04/16 09:58 10/08/16 10:29 1 EA Hydromorphone HCl (Dilaudid Inj) 0.5 mg Q3H PRN IV 10/05/16 11:00 10/19/16 10:28 10/06/16 23:51 0.5 MG
[2016-10-09] VITALS (7 sets, daily range): BP systolic 106–150; BP diastolic 69–83; PULSE 85–94; TEMP 36.4–36.9; O2SAT 92–97
[2016-10-09] MEDS: CHECK FENTANYL PATCH PLACEMENT SCH ×3 (00:27→16:11)
[2016-10-09] MEDS: HYDROmorphone HCL 2 MG TAB PO PRN ×6 (03:00→18:44)
[2016-10-09 06:00] LABS: HEMATOCRIT 27.4 % (37-47); MEAN CELL VOLUME 86.4 fL (80-100); MEAN CORPUSCULAR HEMOGLOBIN 26.5 pg (25-34); MEAN CORPUSCULAR HGB CONC 30.7 g/dl (32-36); MEAN PLATELET VOLUME 8.1 fL (7.4-10.4); PLATELET COUNT 256 K/uL (130-400); RED BLOOD COUNT 3.17 M/uL (4.2-5.4); WHITE BLOOD COUNT 3.43 K/uL (4.8-10.8)
[2016-10-09] MEDS: LEVOTHYROXINE 50 MCG TAB PO SCH (06:07)
[2016-10-09 06:25] LABS: INR 2.8 (0.9-1.1); PROTHROMBIN TIME (PATIENT) 31.5 SECONDS (9.0-12.0)
[2016-10-09 06:34] LABS: BUN/CREATININE RATIO 15.5 (10-20); CALCIUM 8.4 mg/dl (8.5-10.1); CREATININE 0.71 mg/dl (0.60-1.20); POTASSIUM 4.6 mmol/L (3.5-5.1)
[2016-10-09] MEDS: DOCUSATE SODIUM/SENNA 50/8.6MG TAB PO SCH (08:32)
[2016-10-09] MEDS: GABAPENTIN 300 MG CAP PO SCH ×3 (08:32→19:44)
[2016-10-09] MEDS: ENALAPRIL MALEATE 10 MG TAB PO SCH (08:33)
[2016-10-09] MEDS: POLYETHYLENE (MIRALAX) 17 GM PACK PO SCH ×2 (08:33→19:43)
[2016-10-09] MEDS: WARFARIN SOD 5 MG TAB PO SCH (16:12)
[2016-10-09] MEDS: NORTRIPTYLINE HCL 10 MG CAP PO SCH (21:05)
[2016-10-09] MEDS: MONTELUKAST SOD 10 MG TAB PO SCH (21:06)
--- NOTE | 2016-10-09 22:22 | Progress Note ---
Medicine Progress Note Date & Time of Visit: Oct 09, 2016 at 22:10. 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, recently diagnosed with LLE DVT admitted for worsening back and hip pain -pain at 11/25 -discussed with she and her daughter about changing long-acting pain control from fentanyl to MS Contin and Roxanol PRN breakthrough -tolerating PO -XRT today Objective Last 8 Hrs Date Time Temp Pulse Resp B/P Pulse Ox O2 Delivery O2 Flow Rate FiO2 10/09/16 19:09 36.4 94 20 123/77 97 Room Air 10/09/16 16:20 Room Air 10/09/16 15:40 36.8 87 18 133/77 95 Room Air 10/09/16 15:28 36.6 89 20 150/83 95 Room Air Physical Exam: GEN: WNWD, in no acute distress, alert and appropriate, sitting in bedside chair HEENT: NC/AT, normal sclerae CARDIO: reg rate, S1/2 heard without m/g/r LUNGS: CTA, no rales or wheezes, good diaphragmatic excursion ABD: soft, non-tender, non-distended, no rebound or guarding, +BS EXTREMITY: No LE swelling or edema, extremities are warm and well-perfused, TEDs on bilaterally NEURO: CN 2-12 grossly intact, sensation intact throughout MUSC: 5/5 strength throughout, no gross focal deficits, gait not assessed SKIN: warm and dry Laboratory Results: 10/09/16 05:35 10/09/16 05:35 Test 09/11/16 09:15 09/12/16 06:15 09/14/16 09:42 09/14/16 12:04 Activated Partial Thromboplast Time 39.9 SECONDS (21.0-31.0) Partial Thromboplastin Ratio 1.5 Heparin Anti-Xa Act, Low Molec Wt 1.54 IU/ML (0 - <0.10) Magnesium Level 2.0 mg/dl (1.8-2.4) Urine WBC (Auto) 10-30 /hpf (0-5) Urine RBC (Auto) 0-4 /hpf (0-4) Urine Hyaline Casts (Auto) 0 /lpf (0-5) Urine Epithelial Cells (Auto) 0-5 /lpf (0-5) Urine Bacteria (Auto) 4+ (NEG) Osmolality 263 mOsm/kg (280-300) Test 09/15/16 00:15 09/15/16 10:08 09/17/16 10:45 09/20/16 05:36 Urine Random Sodium 12 mEq/L Nucleated RBC Absolute Count (auto) 0.04 K/uL (0-0) Nucleated Red Blood Cells % 0.4 % Urine Osmolality 352 mOms/kg (500-800) Thyroid Stimulating Hormone (TSH) 22.100 uIu/ml (0.300-4.500) Free Thyroxine 0.51 ng/dl (0.80-1.60) Test 09/24/16 00:05 10/02/16 11:45 10/04/16 05:30 10/06/16 05:09 Urine Color YELLOW Urine Appearance CLEAR (CLEAR) Urine pH 6.5 (4.5-7.5) Urine Specific Clarissa 1.011 (1.000-1.030) Urine Protein NEG (NEG) Urine Glucose (UA) NEG (NEG) Urine Ketones NEG (NEG) Urine Occult Blood NEG (NEG) Urine Nitrite NEG (NEG) Urine Bilirubin NEG (NEG) Urine Urobilinogen NEG (NEG) Urine Leukocyte Esterase NEG (NEG) Stool Occult Blood NEGATIVE (NEGATIVE) Red Blood Cell Morphology Unremarkable Immature Granulocyte % (Auto) 0.3 % White Blood Count 2.89 K/uL (4.8-10.8) Red Blood Count 3.29 M/uL (4.2-5.4) Hemoglobin 9.0 g/dL (12.0-16.0) Hematocrit 28.7 % (37-47) Mean Corpuscular Volume 87.2 fL (80-100) Mean Corpuscular Hemoglobin 27.4 pg (25-34) Mean Corpuscular Hemoglobin Concent 31.4 g/dl (32-36) Platelet Count 296 K/uL (130-400) Mean Platelet Volume 8.4 fL (7.4-10.4) Neutrophils (%) (Auto) 66.5 % Lymphocytes (%) (Auto) 15.9 % Monocytes (%) (Auto) 9.0 % Eosinophils (%) (Auto) 8.0 % Basophils (%) (Auto) 0.3 % Neutrophils # (Auto) 1.92 K/uL (1.4-6.5) Lymphocytes # (Auto) 0.46 K/uL (1.2-3.4) Monocytes # (Auto) 0.26 K/uL (0.11-0.59) Eosinophils # (Auto) 0.23 K/uL (0-0.5) Basophils # (Auto) 0.01 K/uL (0-0.2) Immature Granulocyte # (Auto) 0.01 K/uL (0.00-0.02) Phosphorus Level 3.0 mg/dl (2.5-4.9) Total Bilirubin 0.3 mg/dl (0.2-1) Aspartate Amino Transf (AST/SGOT) 18 U/L (15-37) Alanine Aminotransferase (ALT/SGPT) 25 U/L (12-78) Alkaline Phosphatase 158 U/L (45-117) Total Protein 6.0 gm/dl (6.4-8.2) Albumin 2.0 gm/dl (3.4-5.0) Globulin 4.0 gm/dl (2.5-4.0) Albumin/Globulin Ratio 0.5 (0.9-2) Test 10/09/16 05:35 Red Blood Count 3.17 M/uL (4.2-5.4) Mean Corpuscular Volume 86.4 fL (80-100) Mean Corpuscular Hemoglobin 26.5 pg (25-34) Mean Corpuscular Hemoglobin Concent 30.7 g/dl (32-36) RDW Standard Deviation 63.0 fL (36.4-46.3) RDW Coefficient of Variation 19.9 % (11.5-14.5) Mean Platelet Volume 8.1 fL (7.4-10.4) Prothrombin Time 31.5 SECONDS (9.0-12.0) Prothromb Time International Ratio 2.8 (0.9-1.1) Anion Gap 6.0 mmol/L (3-11) Est Creatinine Clear Calc Drug Dose 78.5 ml/min Estimated GFR () 98.6 Estimated GFR (Non- 85.1 BUN/Creatinine Ratio 15.5 (10-20) Calcium Level 8.4 mg/dl (8.5-10.1) Date/Time Source Procedure Growth Status 09/14/16 09:42 Urine , Clean Catch Urine Culture - Final Klebsiella Pneumoniae Complete Last 24 Hours Test 10/09/16 05:35 White Blood Count 3.43 K/uL Red Blood Count 3.17 M/uL Hemoglobin 8.4 g/dL Hematocrit 27.4 % Mean Corpuscular Volume 86.4 fL Mean Corpuscular Hemoglobin 26.5 pg Mean Corpuscular Hemoglobin Concent 30.7 g/dl RDW Standard Deviation 63.0 fL RDW Coefficient of Variation 19.9 % Platelet Count 256 K/uL Mean Platelet Volume 8.1 fL Prothrombin Time 31.5 SECONDS Prothromb Time International Ratio 2.8 Sodium Level 134 mmol/L Potassium Level 4.6 mmol/L Chloride Level 99 mmol/L Carbon Dioxide Level 29 mmol/L Anion Gap 6.0 mmol/L Blood Urea Nitrogen 11 mg/dl Creatinine 0.71 mg/dl Est Creatinine Clear Calc Drug Dose 78.5 ml/min Estimated GFR () 98.6 Estimated GFR (Non- 85.1 BUN/Creatinine Ratio 15.5 Random Glucose 105 mg/dl Calcium Level 8.4 mg/dl Assessment & Plan 71 yoF with 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 Cancer pain-improved since admission but remains a 5/10 every day. Discussed changing Fentanyl to MS contin. 2. 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 Anemia-likely multifactorial in setting of chronic disease and daily phlebotomy, no active bleeding Hb 8.2 on presentation, s/p prbc transfusion 2 units on 09/12/16 hb 7.8 10/01/16 asymptomatic stool for Hemoccult s/p one more unit prbc transfused 10/01/16 hb 8.1 -currently stable 4. LLE DVT-INR daily-currently therapeutic and off Lovenox bridge. Plan for lifelong coumadin. 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 HTN-controlled, cont Vasotec 6. Hypovolemic hyponatremia-resolved 7. Opioid-induced constipation-cont bowel regimen 8. Stage I pressure ulcer on buttock-patient is ambulating and easily moves around bed, wound care nurse following, daily skin checks. DVT PROPHYLAXIS Coumadin CODE STATUS Full code DISPOSITION Lives alone metastatic Cancer on palliative tx -intractable pain Was set for [facility], however, family feels this is too much rehab for her-- need to re-engage with CM for other options Pt understands the risks of staying in the hospital including nosocomial infections, delaying rehabilitation, further blood stasis, etc, however, at this point she has voiced to me that she would like to stay in the hospital until her XRT treatments are through on 10/12. Krissy Lyons DO [facility] Hospitalist Continued [facility] stay due to: inadequate oral pain control Consultants: Pain Management, Nephrology, Oncology Current Inpatient Medications: Current Inpatient Medications Medications (Trade) Dose Ordered Sig/Benjamín Route Start Time Stop Time Status Last Admin Dose Admin Naloxone HCl (Narcan Inj) 0.1 mg Q5M PRN IV 09/11/16 14:00 10/11/16 13:59 Montelukast Sodium (Singulair Tab) 10 mg HS PO 09/11/16 21:00 10/11/16 20:59 10/09/16 21:06 10 MG Diclofenac Sodium (Voltaren 1% Top Gel) 1 appln TID PRN EXT 09/12/16 12:15 10/12/16 12:14 10/04/16 07:57 1 APPLN Ondansetron HCl (Zofran Inj) 4 mg Q6H PRN IV 09/12/16 18:15 10/12/16 18:14 09/13/16 09:38 4 MG Magnesium Hydroxide (Milk Of Magnesia Susp) 30 ml Q6H PRN PO 09/15/16 16:45 10/15/16 16:44 09/15/16 21:50 30 ML Lactulose (Chronulac Syrup) 30 gm TID PRN PO 09/15/16 17:00 10/15/16 16:59 09/16/16 09:13 30 GM Nortriptyline HCl (Pamelor Cap) 10 mg HS PO 09/17/16 21:00 10/17/16 20:59 10/09/16 21:05 10 MG Miscellaneous Information (Check Fentanyl Patch Placement) 1 ea QS N/A 09/20/16 16:00 11/04/16 12:00 10/09/16 16:11 1 EA Levothyroxine Sodium (Synthroid Tab) 50 mcg DAILYBB PO 09/21/16 06:30 10/21/16 06:29 10/09/16 06:07 50 MCG Senna/Docusate Sodium (Senokot S Tab) 1 tab DAILY PO 09/21/16 08:00 10/21/16 07:59 10/09/16 08:32 1 TAB Gabapentin (Neurontin Cap) 300 mg TID PO 09/21/16 14:00 10/21/16 13:59 10/09/16 19:44 300 MG Polyethylene (Miralax Powder Packet) 17 gm BID PO 09/23/16 08:00 10/23/16 07:59 10/09/16 19:43 17 GM Bisacodyl (Dulcolax Supp) 10 mg DAILY PRN [place] 09/22/16 21:00 10/22/16 20:59 Sodium Biphosphate/ Sodium Phosphate (Fleet Enema) 132 ml DAILY PRN [place] 09/22/16 21:00 10/22/16 20:59 Bisacodyl (Dulcolax Tab) 10 mg BID PRN PO 09/23/16 20:00 10/23/16 19:59 Hydromorphone HCl (Dilaudid Tab) 4 mg Q2H PRN PO 09/28/16 19:00 10/12/16 18:59 10/09/16 18:44 4 MG Enalapril Maleate (Vasotec Tab) 10 mg QAM PO 10/01/16 08:00 10/31/16 07:59 10/09/16 08:33 10 MG Warfarin Sodium (Coumadin Tab) 10 mg DAILY@16 PO 10/04/16 16:00 11/03/16 15:59 10/09/16 16:12 10 MG Fentanyl (Duragesic Patch) 100 mcg Q72H TD 10/05/16 10:00 10/19/16 09:59 10/08/16 10:30 100 MCG Miscellaneous (Fentanyl Patch Remove & Waste) 1 ea Q3D@0959 N/A 10/05/16 09:59 11/04/16 09:58 10/08/16 10:29 1 EA
[2016-10-10] MEDS: HYDROmorphone HCL 2 MG TAB PO PRN ×6 (00:42→19:06)
[2016-10-10 04:21] VITALS: BP 117/70; PULSE 85; TEMP 36.7; O2SAT 94
[2016-10-10] MEDS: LEVOTHYROXINE 50 MCG TAB PO SCH (06:01)
[2016-10-10 06:29] LABS: HEMATOCRIT 27.4 % (37-47); MEAN CELL VOLUME 88.4 fL (80-100); MEAN CORPUSCULAR HEMOGLOBIN 27.1 pg (25-34); MEAN CORPUSCULAR HGB CONC 30.7 g/dl (32-36); MEAN PLATELET VOLUME 8.2 fL (7.4-10.4); PLATELET COUNT 292 K/uL (130-400); WHITE BLOOD COUNT 3.47 K/uL (4.8-10.8)
[2016-10-10 06:39] LABS: INR 2.9 (0.9-1.1); PROTHROMBIN TIME (PATIENT) 32.1 SECONDS (9.0-12.0)
[2016-10-10 07:05] LABS: BUN/CREATININE RATIO 16.9 (10-20); CALCIUM 8.5 mg/dl (8.5-10.1); CREATININE 0.68 mg/dl (0.60-1.20); POTASSIUM 4.9 mmol/L (3.5-5.1)
[2016-10-10 07:21] VITALS: BP 109/74; PULSE 83; TEMP 36.4; O2SAT 94
[2016-10-10] MEDS: CHECK FENTANYL PATCH PLACEMENT SCH ×2 (07:41)
[2016-10-10] MEDS: DOCUSATE SODIUM/SENNA 50/8.6MG TAB PO SCH (07:43)
[2016-10-10] MEDS: ENALAPRIL MALEATE 10 MG TAB PO SCH (07:43)
[2016-10-10] MEDS: GABAPENTIN 300 MG CAP PO SCH ×3 (07:43→20:09)
[2016-10-10] MEDS: POLYETHYLENE (MIRALAX) 17 GM PACK PO SCH ×2 (07:43→20:09)
[2016-10-10 11:11] VITALS: BP 104/68; PULSE 93; TEMP 36.6; O2SAT 96
[2016-10-10] MEDS ORDERED: FENTANYL 100 MCG/HR TDSY TD SCH ×2 (13:45→14:15)
--- NOTE | 2016-10-10 13:52 | Progress Note ---
Medicine Progress Note Date & Time of Visit: Oct 10, 2016 at 13:35. Subjective Pt is sitting comfortably in beside chair She is reporting some pain but states that it is OK Denies pain in her neck after placing some ice on it today Family in he room, discussed the plan Contacted daughter by phone to also discuss the plan PT tolerating PO an otherwise is asymptomatic Objective Last 8 Hrs Date Time Temp Pulse Resp B/P Pulse Ox O2 Delivery O2 Flow Rate FiO2 10/10/16 11:11 36.6 93 18 104/68 96 Room Air 10/10/16 08:21 Room Air 10/10/16 07:21 36.4 83 20 109/74 94 Room Air Physical Exam: GEN: WNWD, in no acute distress, alert and appropriate, sitting in bedside chair HEENT: Mild ecchymosis to base of R skull-improved, normal sclerae CARDIO: reg rate, S1/2 heard without m/g/r LUNGS: CTA, no rales or wheezes, good diaphragmatic excursion ABD: soft, non-tender, non-distended, no rebound or guarding, +BS EXTREMITY: No LE swelling or edema, extremities are warm and well-perfused, TEDs on bilaterally NEURO: CN 2-12 grossly intact, sensation intact throughout MUSC: 5/5 strength throughout, no gross focal deficits, gait not assessed SKIN: warm and dry Laboratory Results: 10/10/16 05:50 10/10/16 05:50 Test 09/11/16 09:15 09/12/16 06:15 09/14/16 09:42 09/14/16 12:04 Activated Partial Thromboplast Time 39.9 SECONDS (21.0-31.0) Partial Thromboplastin Ratio 1.5 Heparin Anti-Xa Act, Low Molec Wt 1.54 IU/ML (0 - <0.10) Magnesium Level 2.0 mg/dl (1.8-2.4) Urine WBC (Auto) 10-30 /hpf (0-5) Urine RBC (Auto) 0-4 /hpf (0-4) Urine Hyaline Casts (Auto) 0 /lpf (0-5) Urine Epithelial Cells (Auto) 0-5 /lpf (0-5) Urine Bacteria (Auto) 4+ (NEG) Osmolality 263 mOsm/kg (280-300) Test 09/15/16 00:15 09/15/16 10:08 09/17/16 10:45 09/20/16 05:36 Urine Random Sodium 12 mEq/L Nucleated RBC Absolute Count (auto) 0.04 K/uL (0-0) Nucleated Red Blood Cells % 0.4 % Urine Osmolality 352 mOms/kg (500-800) Thyroid Stimulating Hormone (TSH) 22.100 uIu/ml (0.300-4.500) Free Thyroxine 0.51 ng/dl (0.80-1.60) Test 09/24/16 00:05 10/02/16 11:45 10/04/16 05:30 10/06/16 05:09 Urine Color YELLOW Urine Appearance CLEAR (CLEAR) Urine pH 6.5 (4.5-7.5) Urine Specific Savage 1.011 (1.000-1.030) Urine Protein NEG (NEG) Urine Glucose (UA) NEG (NEG) Urine Ketones NEG (NEG) Urine Occult Blood NEG (NEG) Urine Nitrite NEG (NEG) Urine Bilirubin NEG (NEG) Urine Urobilinogen NEG (NEG) Urine Leukocyte Esterase NEG (NEG) Stool Occult Blood NEGATIVE (NEGATIVE) Red Blood Cell Morphology Unremarkable Immature Granulocyte % (Auto) 0.3 % White Blood Count 2.89 K/uL (4.8-10.8) Red Blood Count 3.29 M/uL (4.2-5.4) Hemoglobin 9.0 g/dL (12.0-16.0) Hematocrit 28.7 % (37-47) Mean Corpuscular Volume 87.2 fL (80-100) Mean Corpuscular Hemoglobin 27.4 pg (25-34) Mean Corpuscular Hemoglobin Concent 31.4 g/dl (32-36) Platelet Count 296 K/uL (130-400) Mean Platelet Volume 8.4 fL (7.4-10.4) Neutrophils (%) (Auto) 66.5 % Lymphocytes (%) (Auto) 15.9 % Monocytes (%) (Auto) 9.0 % Eosinophils (%) (Auto) 8.0 % Basophils (%) (Auto) 0.3 % Neutrophils # (Auto) 1.92 K/uL (1.4-6.5) Lymphocytes # (Auto) 0.46 K/uL (1.2-3.4) Monocytes # (Auto) 0.26 K/uL (0.11-0.59) Eosinophils # (Auto) 0.23 K/uL (0-0.5) Basophils # (Auto) 0.01 K/uL (0-0.2) Immature Granulocyte # (Auto) 0.01 K/uL (0.00-0.02) Phosphorus Level 3.0 mg/dl (2.5-4.9) Total Bilirubin 0.3 mg/dl (0.2-1) Aspartate Amino Transf (AST/SGOT) 18 U/L (15-37) Alanine Aminotransferase (ALT/SGPT) 25 U/L (12-78) Alkaline Phosphatase 158 U/L (45-117) Total Protein 6.0 gm/dl (6.4-8.2) Albumin 2.0 gm/dl (3.4-5.0) Globulin 4.0 gm/dl (2.5-4.0) Albumin/Globulin Ratio 0.5 (0.9-2) Test 10/10/16 05:50 Red Blood Count 3.10 M/uL (4.2-5.4) Mean Corpuscular Volume 88.4 fL (80-100) Mean Corpuscular Hemoglobin 27.1 pg (25-34) Mean Corpuscular Hemoglobin Concent 30.7 g/dl (32-36) RDW Standard Deviation 64.5 fL (36.4-46.3) RDW Coefficient of Variation 20.1 % (11.5-14.5) Mean Platelet Volume 8.2 fL (7.4-10.4) Prothrombin Time 32.1 SECONDS (9.0-12.0) Prothromb Time International Ratio 2.9 (0.9-1.1) Anion Gap 4.0 mmol/L (3-11) Est Creatinine Clear Calc Drug Dose 82.2 ml/min Estimated GFR () 101.3 Estimated GFR (Non- 87.4 BUN/Creatinine Ratio 16.9 (10-20) Calcium Level 8.5 mg/dl (8.5-10.1) Date/Time Source Procedure Growth Status 09/14/16 09:42 Urine , Clean Catch Urine Culture - Final Klebsiella Pneumoniae Complete Last 24 Hours Test 10/10/16 05:50 White Blood Count 3.47 K/uL Red Blood Count 3.10 M/uL Hemoglobin 8.4 g/dL Hematocrit 27.4 % Mean Corpuscular Volume 88.4 fL Mean Corpuscular Hemoglobin 27.1 pg Mean Corpuscular Hemoglobin Concent 30.7 g/dl RDW Standard Deviation 64.5 fL RDW Coefficient of Variation 20.1 % Platelet Count 292 K/uL Mean Platelet Volume 8.2 fL Prothrombin Time 32.1 SECONDS Prothromb Time International Ratio 2.9 Sodium Level 136 mmol/L Potassium Level 4.9 mmol/L Chloride Level 100 mmol/L Carbon Dioxide Level 32 mmol/L Anion Gap 4.0 mmol/L Blood Urea Nitrogen 11 mg/dl Creatinine 0.68 mg/dl Est Creatinine Clear Calc Drug Dose 82.2 ml/min Estimated GFR () 101.3 Estimated GFR (Non- 87.4 BUN/Creatinine Ratio 16.9 Random Glucose 104 mg/dl Calcium Level 8.5 mg/dl Assessment & Plan 71 yoF with 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 Cancer pain-improved since admission but remains a 5/10 every day. Discussed changing Fentanyl to MS marla, patient defers to daughter Katerina who is concerned about mom being loopy and significantly fatigued. Decided to go up by 25mcg on Fentanyl patch and started new dose today to see if this helps with underlying base pain. Spent 20 minutes on phone with daughter weighing pros/cons of all options today. She verbalized understanding and all questions were answered. 2. 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 Anemia-likely multifactorial in setting of chronic disease and daily phlebotomy, no active bleeding Hb 8.2 on presentation, s/p prbc transfusion 2 units on 09/12/16 hb 7.8 10/01/16 asymptomatic stool for Hemoccult s/p one more unit prbc transfused 10/01/16 hb 8.1 -currently stable 4. LLE DVT-INR daily-currently therapeutic and off Lovenox bridge. Plan for lifelong coumadin. 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 HTN-controlled, cont Vasotec 6. Hypovolemic hyponatremia-resolved 7. Opioid-induced constipation-cont bowel regimen 8. Stage I pressure ulcer on buttock-patient is ambulating and easily moves around bed, wound care nurse following, daily skin checks. 9. Ambulatory dysfunction 2/2 pain (above)-cont PT regularly DVT PROPHYLAXIS Coumadin CODE STATUS Full code DISPOSITION Lives alone metastatic Cancer on palliative tx -intractable pain Was set for [facility], however, family feels this is too much rehab for her-- need to re-engage with CM for other options Pt understands the risks of staying in the hospital including nosocomial infections, delaying rehabilitation, further blood stasis, etc, however, at this point she has voiced to me that she would like to stay in the hospital until her XRT treatments are through on 10/12. DO [facility] Continued [facility] stay due to: inadequate oral pain control Consultants: Pain Management, Nephrology, Oncology Current Inpatient Medications: Current Inpatient Medications Medications (Trade) Dose Ordered Sig/Benjamín Route Start Time Stop Time Status Last Admin Dose Admin Naloxone HCl (Narcan Inj) 0.1 mg Q5M PRN IV 09/11/16 14:00 10/11/16 13:59 Montelukast Sodium (Singulair Tab) 10 mg HS PO 09/11/16 21:00 10/11/16 20:59 10/09/16 21:06 10 MG Diclofenac Sodium (Voltaren 1% Top Gel) 1 appln TID PRN EXT 09/12/16 12:15 10/12/16 12:14 10/04/16 07:57 1 APPLN Ondansetron HCl (Zofran Inj) 4 mg Q6H PRN IV 09/12/16 18:15 10/12/16 18:14 09/13/16 09:38 4 MG Magnesium Hydroxide (Milk Of Magnesia Susp) 30 ml Q6H PRN PO 09/15/16 16:45 10/15/16 16:44 09/15/16 21:50 30 ML Lactulose (Chronulac Syrup) 30 gm TID PRN PO 09/15/16 17:00 10/15/16 16:59 09/16/16 09:13 30 GM Nortriptyline HCl (Pamelor Cap) 10 mg HS PO 09/17/16 21:00 10/17/16 20:59 10/09/16 21:05 10 MG Miscellaneous Information (Check Fentanyl Patch Placement) 1 ea QS N/A 09/20/16 16:00 11/04/16 12:00 10/10/16 07:41 1 EA Levothyroxine Sodium (Synthroid Tab) 50 mcg DAILYBB PO 09/21/16 06:30 10/21/16 06:29 10/10/16 06:01 50 MCG Senna/Docusate Sodium (Senokot S Tab) 1 tab DAILY PO 09/21/16 08:00 10/21/16 07:59 10/10/16 07:43 1 TAB Gabapentin (Neurontin Cap) 300 mg TID PO 09/21/16 14:00 10/21/16 13:59 10/10/16 13:30 300 MG Polyethylene (Miralax Powder Packet) 17 gm BID PO 09/23/16 08:00 10/23/16 07:59 10/10/16 07:43 17 GM Bisacodyl (Dulcolax Supp) 10 mg DAILY PRN [place] 09/22/16 21:00 10/22/16 20:59 Sodium Biphosphate/ Sodium Phosphate (Fleet Enema) 132 ml DAILY PRN [place] 09/22/16 21:00 10/22/16 20:59 Bisacodyl (Dulcolax Tab) 10 mg BID PRN PO 09/23/16 20:00 10/23/16 19:59 Hydromorphone HCl (Dilaudid Tab) 4 mg Q2H PRN PO 09/28/16 19:00 10/12/16 18:59 10/10/16 09:24 4 MG Enalapril Maleate (Vasotec Tab) 10 mg QAM PO 10/01/16 08:00 10/31/16 07:59 10/10/16 07:43 10 MG Warfarin Sodium (Coumadin Tab) 10 mg DAILY@16 PO 10/04/16 16:00 11/03/16 15:59 10/09/16 16:12 10 MG Fentanyl (Duragesic Patch) 100 mcg Q72H TD 10/05/16 10:00 10/19/16 09:59 10/08/16 10:30 100 MCG Miscellaneous (Fentanyl Patch Remove & Waste) 1 ea Q3D@0959 N/A 10/05/16 09:59 11/04/16 09:58 10/08/16 10:29 1 EA
[2016-10-10] MEDS ORDERED: FENTANYL PATCH REMOVE & WASTE SCH ×2 (14:14)
[2016-10-10] MEDS ORDERED: FENTANYL 25 MCG/HR TDSY TD SCH (14:15)
[2016-10-10 14:53] VITALS: BP 120/68; PULSE 89; TEMP 36.9; O2SAT 93
[2016-10-10] MEDS: WARFARIN SOD 5 MG TAB PO SCH (15:52)
[2016-10-10] MEDS: CHECK FENTANYL SCH ×2 (15:52→23:51)
[2016-10-10] MEDS: CHECK FENTANYL 25 MCG SCH ×2 (15:53→23:51)
[2016-10-10 19:34] VITALS: BP 107/68; PULSE 91; TEMP 36.6; O2SAT 95
[2016-10-10] MEDS: MONTELUKAST SOD 10 MG TAB PO SCH (20:52)
[2016-10-10] MEDS: NORTRIPTYLINE HCL 10 MG CAP PO SCH (20:52)
[2016-10-10 23:41] VITALS: BP 114/71; PULSE 86; TEMP 36.8; O2SAT 95
[2016-10-11 04:40] VITALS: BP 105/66; PULSE 86; TEMP 36.6; O2SAT 94
[2016-10-11] MEDS: LEVOTHYROXINE 50 MCG TAB PO SCH (06:07)
[2016-10-11 06:59] VITALS: BP 100/67; PULSE 85; TEMP 36.6; O2SAT 95
[2016-10-11] MEDS: CHECK FENTANYL 25 MCG SCH ×3 (07:36→23:43)
[2016-10-11] MEDS: CHECK FENTANYL SCH ×3 (07:36→23:43)
[2016-10-11] MEDS: GABAPENTIN 300 MG CAP PO SCH ×3 (07:37→19:55)
[2016-10-11] MEDS: POLYETHYLENE (MIRALAX) 17 GM PACK PO SCH ×2 (07:37→19:56)
[2016-10-11] MEDS: DOCUSATE SODIUM/SENNA 50/8.6MG TAB PO SCH (07:37)
[2016-10-11] MEDS: ENALAPRIL MALEATE 10 MG TAB PO SCH (07:39)
[2016-10-11] MEDS: HYDROmorphone HCL 2 MG TAB PO PRN ×3 (08:55→19:07)
--- NOTE | 2016-10-11 14:14 | Progress Note ---
Medicine Progress Note Date & Time of Visit: Oct 11, 2016 at 14:12. Subjective Pain well-controlled with change in Fentanyl patch to 125mcg yesterday All questions regarding logistics were answered for family members Pt is tolerating PO and having BMs. She is ambulating with assist. Awaiting XRT tomorrow Objective Last 8 Hrs Date Time Temp Pulse Resp B/P Pulse Ox O2 Delivery O2 Flow Rate FiO2 10/11/16 11:16 Room Air 10/11/16 06:59 36.6 85 18 100/67 95 Room Air Physical Exam: GEN: WNWD, in no acute distress, alert and appropriate, sitting in bedside chair HEENT: Mild ecchymosis to base of R skull-improved, normal sclerae CARDIO: reg rate, S1/2 heard without m/g/r LUNGS: CTA, no rales or wheezes, good diaphragmatic excursion ABD: soft, non-tender, non-distended, no rebound or guarding, +BS EXTREMITY: No LE swelling or edema, extremities are warm and well-perfused N/M: no gross focal deficits. SKIN: warm and dry Assessment & Plan 71 yoF with 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 Cancer pain-improved since admission but remains a 5/10 every day. Discussed changing Fentanyl to MS gutiérrez, patient defers to daughter Katerina who is concerned about mom being loopy and significantly fatigued. Decided to go up by 25mcg on Fentanyl patch and started new dose today to see if this helps with underlying base pain. Spent 20 minutes on phone with daughter weighing pros/cons of all options today. She verbalized understanding and all questions were answered. 2. 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 Anemia-likely multifactorial in setting of chronic disease and daily phlebotomy, no active bleeding Hb 8.2 on presentation, s/p prbc transfusion 2 units on 09/12/16 hb 7.8 10/01/16 asymptomatic stool for Hemoccult s/p one more unit prbc transfused 10/01/16 hb 8.1 -currently stable 4. LLE DVT-INR daily-currently therapeutic and off Lovenox bridge. Plan for lifelong coumadin. 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 HTN-controlled, cont Vasotec 6. Hypovolemic hyponatremia-resolved 7. Opioid-induced constipation-cont bowel regimen 8. Stage I pressure ulcer on buttock-patient is ambulating and easily moves around bed, wound care nurse following, daily skin checks. 9. Ambulatory dysfunction 08/20 pain (above)-cont PT regularly DVT PROPHYLAXIS Coumadin CODE STATUS Full code DISPOSITION Lives alone metastatic Cancer on palliative tx -intractable pain [facility], however, family feels this is too much rehab for her-- need to re-engage with CM for other options Pt understands the risks of staying in the hospital including nosocomial infections, delaying rehabilitation, further blood stasis, etc, however, at this point she has voiced to me that she would like to stay in the hospital until her XRT treatments are through on 10/12. Krissy Lyons DO [facility] Hospitalist Continued [facility] stay due to: inadequate oral pain control Consultants: Pain Management, Nephrology, Oncology Current Inpatient Medications: Current Inpatient Medications Medications (Trade) Dose Ordered Sig/Benjamín Route Start Time Stop Time Status Last Admin Dose Admin Diclofenac Sodium (Voltaren 1% Top Gel) 1 appln TID PRN EXT 09/12/16 12:15 10/12/16 12:14 10/04/16 07:57 1 APPLN Ondansetron HCl (Zofran Inj) 4 mg Q6H PRN IV 09/12/16 18:15 10/12/16 18:14 09/13/16 09:38 4 MG Magnesium Hydroxide (Milk Of Magnesia Susp) 30 ml Q6H PRN PO 09/15/16 16:45 10/15/16 16:44 09/15/16 21:50 30 ML Lactulose (Chronulac Syrup) 30 gm TID PRN PO 09/15/16 17:00 10/15/16 16:59 09/16/16 09:13 30 GM Nortriptyline HCl (Pamelor Cap) 10 mg HS PO 09/17/16 21:00 10/17/16 20:59 10/10/16 20:52 10 MG Levothyroxine Sodium (Synthroid Tab) 50 mcg DAILYBB PO 09/21/16 06:30 10/21/16 06:29 10/11/16 06:07 50 MCG Senna/Docusate Sodium (Senokot S Tab) 1 tab DAILY PO 09/21/16 08:00 10/21/16 07:59 10/11/16 07:37 1 TAB Gabapentin (Neurontin Cap) 300 mg TID PO 09/21/16 14:00 10/21/16 13:59 10/11/16 14:06 300 MG Polyethylene (Miralax Powder Packet) 17 gm BID PO 09/23/16 08:00 10/23/16 07:59 10/11/16 07:37 17 GM Bisacodyl (Dulcolax Supp) 10 mg DAILY PRN MS 09/22/16 21:00 10/22/16 20:59 Sodium Biphosphate/ Sodium Phosphate (Fleet Enema) 132 ml DAILY PRN MS 09/22/16 21:00 10/22/16 20:59 Bisacodyl (Dulcolax Tab) 10 mg BID PRN PO 09/23/16 20:00 10/23/16 19:59 Hydromorphone HCl (Dilaudid Tab) 4 mg Q2H PRN PO 09/28/16 19:00 10/12/16 18:59 10/11/16 08:55 4 MG Enalapril Maleate (Vasotec Tab) 10 mg QAM PO 10/01/16 08:00 10/31/16 07:59 10/11/16 07:39 10 MG Warfarin Sodium (Coumadin Tab) 10 mg DAILY@16 PO 10/04/16 16:00 11/03/16 15:59 10/10/16 15:52 10 MG Montelukast Sodium (Singulair Tab) 10 mg HS PO 10/10/16 21:00 11/09/16 20:59 10/10/16 20:52 10 MG Fentanyl (Duragesic Patch) 100 mcg Q3D@1415 TD 10/10/16 14:15 10/24/16 14:14 10/10/16 14:34 100 MCG Miscellaneous (Fentanyl Patch Remove & Waste) 1 ea Q3D@1414 N/A 10/10/16 14:14 11/09/16 14:13 10/10/16 14:40 1 EA Miscellaneous Information (Check Fentanyl Patch Placement) 1 ea QS N/A 10/10/16 16:00 11/09/16 15:59 10/11/16 07:36 1 EA Fentanyl (Duragesic Patch) 25 mcg Q3D@1415 TD 10/10/16 14:15 10/24/16 14:14 10/10/16 14:35 25 MCG Miscellaneous (Fentanyl Patch Remove & Waste) 1 ea Q3D@1414 N/A 10/10/16 14:14 11/09/16 14:13 Miscellaneous Information (Check Fentanyl Patch Placement) 1 ea QS N/A 10/10/16 16:00 11/09/16 15:59 10/11/16 07:36 1 EA
[2016-10-11 15:03] VITALS: BP 98/61; PULSE 94; TEMP 36.4; O2SAT 96
[2016-10-11] MEDS: WARFARIN SOD 5 MG TAB PO SCH (15:31)
[2016-10-11 18:58] VITALS: BP 121/79; PULSE 94; TEMP 36.4; O2SAT 96
[2016-10-11] MEDS: NORTRIPTYLINE HCL 10 MG CAP PO SCH (20:43)
[2016-10-11] MEDS: MONTELUKAST SOD 10 MG TAB PO SCH (20:43)
[2016-10-11 23:52] VITALS: BP 106/66; PULSE 81; TEMP 36.7; O2SAT 95
[2016-10-12 03:12] VITALS: BP 115/69; PULSE 84; TEMP 36.4; O2SAT 95
[2016-10-12] MEDS: LEVOTHYROXINE 50 MCG TAB PO SCH (05:59)
[2016-10-12] MEDS: HYDROmorphone HCL 2 MG TAB PO PRN ×3 (05:59→12:44)
[2016-10-12 06:41] LABS: HEMATOCRIT 27.2 % (37-47); MEAN CELL VOLUME 86.1 fL (80-100); MEAN CORPUSCULAR HEMOGLOBIN 26.3 pg (25-34); MEAN CORPUSCULAR HGB CONC 30.5 g/dl (32-36); PLATELET COUNT 296 K/uL (130-400); RED BLOOD COUNT 3.16 M/uL (4.2-5.4)
[2016-10-12 06:53] LABS: INR 3.4 (0.9-1.1); PROTHROMBIN TIME (PATIENT) 38.1 SECONDS (9.0-12.0)
[2016-10-12 07:07] VITALS: BP 105/68; PULSE 83; TEMP 36.6; O2SAT 93
[2016-10-12 07:15] LABS: BUN/CREATININE RATIO 18.1 (10-20); CREATININE 0.75 mg/dl (0.60-1.20); POTASSIUM 4.9 mmol/L (3.5-5.1)
[2016-10-12] MEDS: CHECK FENTANYL SCH (07:40)
[2016-10-12] MEDS: CHECK FENTANYL 25 MCG SCH (07:40)
[2016-10-12 08:05] VITALS: BP 126/61; PULSE 82; TEMP 37.1; O2SAT 94
[2016-10-12] MEDS: POLYETHYLENE (MIRALAX) 17 GM PACK PO SCH (09:29)
[2016-10-12] MEDS: ENALAPRIL MALEATE 10 MG TAB PO SCH (09:29)
[2016-10-12] MEDS: DOCUSATE SODIUM/SENNA 50/8.6MG TAB PO SCH (09:29)
[2016-10-12] MEDS: GABAPENTIN 300 MG CAP PO SCH (09:29)
[2016-10-12 11:56] VITALS: BP 118/76; PULSE 88; TEMP 36.5; O2SAT 96
[2016-10-12] MEDS ORDERED: DRGTP25 TD (13:04)
[2016-10-12] MEDS ORDERED: DRGTP100 TD (13:04)
--- NOTE | 2016-10-12 13:15 | Discharge Summary ---
Discharge Summary Date of Service Oct 12, 2016. Discharge Summary Admission Date: Sep 11, 2016 at 11:57 Discharge Date: Oct 12, 2016 Discharge Disposition: Rehab Principal Diagnosis: 1. Renal cell carcinoma-Stage IV 2. Chronic pain 3. Anemia s/p 3 units of blood transfused this admission 4. LLE acute DVT 5. Hypertension 6. Hypovolemic hyponatremia-resolved 7. Opioid-induced constipation 8. Stage I pressure ulcer in sacral area 9. Ambulatory dysfunction Procedures: Outpatient palliative radiation therapy 09/14-10/12 Vaccinations: None. Consultations: Pain Management, Nephrology, Oncology Medication Reconciliation New Medications: Bisacodyl (Bisac-Evac) 10 Mg Supp 10 MG ID DAILY PRN for Constipation for 30 Days, SUPP Bisacodyl (Bisacodyl EC) 5 Mg Tabec 10 MG PO BID, #60 Bisacodyl (Bisacodyl EC) 5 Mg Tabec 10 MG PO BID PRN for constipation for 30 Days Fentanyl (Fentanyl) 100 Mcg Tdsy 100 MCG TD Q3D@1415 for 10 Days, #5 PATCH Fentanyl (Fentanyl) 25 Mcg Tdsy 25 MCG TD Q3D@1415 for 10 Days, #5 PATCH Gabapentin (Gabapentin) 300 Mg Cap 300 MG PO TID, #90 CAP Hydromorphone HCl (Hydromorphone HCl) 2 Mg Tab 4 MG PO Q2H PRN for Pain, #60 TAB Lactulose (Lactulose) 30 Gm/45 Ml Syrp 30 GM PO TID PRN for Constipation for 30 Days Levothyroxine Sodium (Synthroid) 50 Mcg Tab 50 MCG PO DAILYBB, #30 TAB Magnesium Hydroxide (Milk of Magnesia) 30 Ml Susp 30 ML PO Q6H PRN for constipation for 30 Days Nortriptyline HCl (Nortriptyline HCl) 10 Mg Cap 10 MG PO HS for 30 Days, #30 CAP 3 Refills Polyethylene (Miralax) 17 Gm Pow 17 GM PO BID for 30 Days Sennosides-Docusate Sodium (Senokot S) 1 Tab Tab 1 TAB PO DAILY, #30 TAB Continued Medications: Enalapril (Vasotec) 10 Mg Tab 10 MG PO QAM, TAB Montelukast Sodium (Singulair) 10 Mg Tab 10 MG PO HS for 90 Days, TAB 1 Refill Discontinued Medications: Calcium Carbonate-Cholecalcife (Calcium 600 + D 600-200 mg-Unit) 1 Tab Tab 2 TABS PO QAM Enoxaparin (Lovenox) 100 Mg/Ml Inj 100 MG SC Q12 Fentanyl (Fentanyl) 12 Mcg Tdsy 12 MCG TD Q3D Furosemide (Lasix) 40 Mg Tab 40 MG PO DAILY, TAB Sunitinib Malate (Sutent) 25 Mg Cap 25 MG PO DAILY TAKES DAILY FOR 4 WEEKS THEN OFF FOR 2 WEEKS STARTED 09/09/16 Warfarin Sod (Jantoven) 5 Mg Tab 5 MG PO QPM, TAB Admission Information HPI (per Admitting provider): This is a 71 year old female with PMH of 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 Pt follows with Dr. Gonzalez for primary care and Dr. Villagran for oncology. Patient states back pain has been presents over past 3 months and progressively worsened. The pain starts in lumbar area and radiates to left groin and hip down the left leg to her knee. She was able to ambulate with a walker or cane until today when she was no longer able to ambulate secondary to pain. No recent fall or trauma. Pt has had Fentanyl 12 mcg patch placed 2 days ago and was taking hydrocodone-acetaminophen 5-325 at home without relief. She was treated with multiple doses of Dilaudid in ER but continues with pain rated 9/10. She had a PET scan on 09/02/16 which showed large soft tissue mets with mass effect upon the left psoas muscle, eroding the left iliac bone, and invading the left gluteal musculature with additional mass effect suggested to the left femoral vein and stable mildly prominent abdominal aorta lymph nodes. Pt was seen by radiation oncologist Dr. Joey Poon with plan for palliative radiation to start Thursday 09/14. She was started on Sutent on Wednesday by Dr. Villagran. Patient has also had LLE swelling and calf pain x 3 weeks and was had LLE US positive for DVT on 09/08/16. She was started on Lovenox and Coumadin 2 days ago. Pt denies fevers, chills, weight change, URI symptoms, cough, SOB, chest pain, abdominal pain, N/V/D/C, urinary changes, weakness, numbness, groin paresthesias, incontinence, abnormal bleeding. Pt has had lumbar spinal surgery in 1992 and L RAFAL in 02/[address] Gaona. Physical Exam (per Admitting): General Appearance: WD/WN, no apparent distress, + pertinent finding (alert cooperative 71 year old female, appears uncomfortable especially with movement) Head: normocephalic, atraumatic Eyes: normal inspection, PERRL, EOMI ENT: hearing grossly normal, pharynx normal Neck: supple, trachea midline Respiratory/Chest: lungs clear, normal breath sounds, no respiratory distress, no accessory muscle use Cardiovascular: regular rate, rhythm, no murmur Abdomen/GI: normal bowel sounds, soft, + pertinent finding (tender in LLQ) Back: + pertinent finding (tender to palpation in left lumbar paraspinal area, left iliac crest, and left groin) Extremities/Musculoskelatal: + calf tenderness (left calf tender with palpable cords), + pedal edema (LLE pretibial edema), + pertinent finding (pain with left hip ROM) Neurologic/Psych: alert, normal mood/affect, oriented x 3, + pertinent finding (ankle flexion/ extension intact bilaterally. left hip ROM limited by pain. senation to light touch intact bilateral feet. ) Skin: warm/dry, + pertinent finding (small area of mild erythema with 1 cm scab on left buttock. no open area or drainage. ) Hospital Course 71 yoF with 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 Cancer pain-improved since admission but remains a 5/10 every day. Discussed changing Fentanyl to MS contin, patient defers to daughter Katerina who is concerned about mom being loopy and significantly fatigued. Decided to go up by 25mcg on Fentanyl patch and started new dose today to see if this helps with underlying base pain. Spent 20 minutes on phone with daughter weighing pros/cons of all options today. She verbalized understanding and all questions were answered. 2. 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 Anemia-likely multifactorial in setting of chronic disease and daily phlebotomy, no active bleeding Hb 8.2 on presentation, s/p prbc transfusion 2 units on 09/12/16 hb 7.8 10/01/16 asymptomatic stool for Hemoccult s/p one more unit prbc transfused 10/01/16 hb 8.1 -currently stable 4. LLE DVT-INR daily-currently therapeutic and off Lovenox bridge. Plan for lifelong coumadin. 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 HTN-controlled, cont Vasotec 6. Hypovolemic hyponatremia-resolved 7. Opioid-induced constipation-cont bowel regimen 8. Stage I pressure ulcer on buttock-patient is ambulating and easily moves around bed, wound care nurse following, daily skin checks. 9. Ambulatory dysfunction 2/2 pain (above)-cont PT regularly Total time spent on discharge = 60 minutes This includes examination of the patient, discharge planning, medication reconciliation, and communication with other providers. Discharge Instructions Discharge Instructions Date of Service Sep 23, 2016. Admission Reason for Admission: Dvt; Intractable Pain; Renal Cell Carcinoma Discharge Discharge Diagnosis / Problem: INTRACTABLE BACK PAIN /RENAL CELL CA WITH METASTATIS Discharge Goals Goal(s): Improve disease control, Diagnostic testing, Therapeutic intervention Activity Recommendations Activity Level: Assistance Required Therapies: Physical Therapy, Occupational Therapy . Additional Information Patient informed of condition: Yes Advance Directives: No DNR: No Level of Care: Acute Rehab Communicable Disease: No Prognosis: Other (POOR ) [place]ruz Catheter: No Instructions / Follow-Up Instructions / Follow-Up FOLLOW UP WITH FAMILY PHYSICIAN AFTER DISCHARGE FORM REHAB TSH LEVEL NEEDS TO BE CHECKED IN 6-8 WEEKS AND ADJUST LEVOTHYROXINE DOSE ACCORDINGLY Current Hospital Diet Patient's current hospital diet: AHA Diet (Heart Healthy) Discharge Diet Recommended Diet: Regular Diet Pending Studies Studies pending at discharge: no Medical Emergencies . Who to Call and When: Medical Emergencies: If at any time you feel your situation is an emergency, please call 911 immediately. . Non-Emergent Contact Non-Emergency issues call your: Primary Care Provider . . "Provider Documentation" section prepared by Catalina Garcia. Core Measure Problem Core Measures: None Additional Copies To Devyn Gonzalez M.D.
--- NOTE | 2016-10-19 16:10 | Radiation Onc End of Treatmnt ---
End of Treatment Documentation Date Oct 19, 2016. Diagnosis (1) Renal cell carcinoma Stage: IV Permanent Comment: Previous Radiation Therapy 1. Bilateral neck - 5940 cGy - 08/22/2003 2. Right Humerus - 4950 cGy - 10/26/2006 3. Left Hip - 4500 cGy - 02/23/2008 -Plan for sutent by Dr. Villagran 4. Status post completion of radiation therapy to the left pelvis 10/12/2016 received 7000 cGy Last Edited By: Karin Paredes on Oct 19, 2016 16:02 History Ms. Hutchinson is a 71-year-old female with a well-known history of metastatic renal cell carcinoma. She was initially diagnosed with metastatic renal cell carcinoma in July 2003 and was found to have bilateral cervical maria c involvement. She has received several courses of palliative radiation therapy to the bilateral neck in 2003, right humerus and 2006 and left hip and 2007. The patient did suffer a pelvic insufficiency fracture in the left hip and did undergo a left hip arthroplasty by Dr. Gaona. More recently, the patient has been complaining of significant pain involving her left hip which was initially thought to be musculoskeletal. The patient was then referred back to Dr. Qamar Villagran who did order a PET/CT scan on 2016 which did reveal a large soft tissue metastasis upon the left psoas muscle eroding into the left iliac bone and invading the left gluteal musculature. Also noted were mildly prominent abdominal aortic lymph nodes that are stable. Dr. Villagran does plan to utilize Sutent and asked us to consider the patient for palliative radiation therapy. Currently, the patient is having significant swelling in her left lower extremity. She is also having some tenderness in her left calf and difficulty ambulating as well. Physics Course Treatment Site [employer] Start Date End Date Elapsed Days # TX Daily Dose (cGy) Total Dose (cGy) C1- Lt Pelvis VMAT, 2 arcs 6X 09/15/2016 10/12/2016 28 20 350 7000 Do documented final doses agree with prescribed doses? Yes If not, explain: Is patients chart complete and accurate? Yes If not, explain: Notes/Comments: Previous radiation treatments: Left hip: 2007 Right humerus: 2006 Right neck: 2003 Additional Notes She was given palliative radiation therapy to the left hip. She had been admitted to the hospital with severe pain of the pelvis. She was started on pain medication. This included Dilaudid and Narco. She did have improvement in her discomfort. At the end of treatment she was giving a pain level of 4. She was on a fentanyl patch. She'll continue follow-up with medical oncology. She was transferred from [facility] to [facility] at the end of her hospital stay. We asked her to return to our office in one month. Pain Management As reviewed above. The patient was admitted for palliation of pain. With the use Dilaudid and Narco there was improvement of pain. She was given the palliative radiation therapy. At the end of treatment her pain level was 4. Copies To Devyn Gonzalez M.D.; Qamar Villagran M.D. Problem Qualifiers (1) Renal cell carcinoma: Laterality: left Qualified Codes: C64.2 - Malignant neoplasm of left kidney, except renal pelvis
== END 2016-10-12 13:45 | DRG 543 ==
LOC: ENRESERVDT → ENRESERVTM → EDBD 09:10 → C.EDA 09:12 → C.MED 11:57 → C.4E 20:08
PROVIDERS: ADMIT Hospitalist; ATTEND Hospitalist
DX: C79.51 Secondary malignant neoplasm of bone (principal); J84.9 Interstitial pulmonary disease, unspecified; N17.9 Acute kidney failure, unspecified; C64.2 Malignant neoplasm of left kidney, except renal pelvis; I82.402 Acute embolism and thrombosis of unspecified deep veins of left lower extremity; N39.0 Urinary tract infection, site not specified; E87.0 Hyperosmolality and hypernatremia; M48.06 Spinal stenosis, lumbar region; I10 Essential (primary) hypertension; D64.9 Anemia, unspecified; K59.00 Constipation, unspecified; L89.321 Pressure ulcer of left buttock, stage 1; D72.829 Elevated white blood cell count, unspecified; Z87.891 Personal history of nicotine dependence; Z82.49 Family history of ischemic heart disease and other diseases of the circulatory system; Z82.3 Family history of stroke; Z80.1 Family history of malignant neoplasm of trachea, bronchus and lung; Z80.0 Family history of malignant neoplasm of digestive organs; M19.90 Unspecified osteoarthritis, unspecified site; M81.0 Age-related osteoporosis without current pathological fracture; Z96.642 Presence of left artificial hip joint; L89.151 Pressure ulcer of sacral region, stage 1; K59.03 Drug induced constipation; T40.2X5A Adverse effect of other opioids, initial encounter; Y92.9 Unspecified place or not applicable; G89.3 Neoplasm related pain (acute) (chronic); Z92.3 Personal history of irradiation; Z51.0 Encounter for antineoplastic radiation therapy; M79.89 Other specified soft tissue disorders; M79.604 Pain in right leg; I82.412 Acute embolism and thrombosis of left femoral vein; I82.812 Embolism and thrombosis of superficial veins of left lower extremity